=== PATIENT | male | born 1970 ===

== ENCOUNTER 2016-11-16 16:29 | Inpatient (IN) | payer MEDICAID ==
[2016-11-16 20:44] VITALS: BMI 44.0
[2016-11-16] MEDS ORDERED: DiphenhydrAMINE 50 mg/ml Inj IM PRN (21:20)
[2016-11-16] MEDS ORDERED: Magnesium Hydroxide Susp 30 ml UD PO PRN (21:20)
[2016-11-16] MEDS ORDERED: Alum-Mag Hydrox-Simethicone Susp (30 mL) PO PRN (21:20)
[2016-11-17] MEDS ORDERED: Albuterol HFA 90 mcg/actuation (8 g) INH PRN (01:01)
[2016-11-17 08:16] LABS: CHOLESTEROL 135 mg/dL (0-199)
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
--- NOTE | 2016-11-18 11:57 | PN ---
DATE: 11/18/2016 The patient seen and examined. Interim events noted. The patient remains in the psych unit. The pa tient feels much better. No chest pain, no shortness of breath. Still feels depressed but improved. PHYSICAL EXAMINATION: GENERAL: The patient is in no acute distress. VITAL SIGNS: Stable. Temperature 97.5, pulse 83, respiration 18, blood pressure 144/95. Physical e xam is essentially unchanged. DIAGNOSTIC DATA: Available diagnostic data reviewed. Lipid profile is acceptable. Overall, patient's general medical condition is stable. PLAN: As ordered. Karlos Miguel MD cc: [id number] TT: 11/18/2016 11:56:38 Confirmation # [id number] Dictation # [id number] mn
--- NOTE | 2016-11-18 13:01 | PCM.PYCHPN ---
Psychiatric Progress Note - Psychiatric Progress Note Patient seen today, length of contact: in treatment team Patient Chief Complaint: i an dong a little better Problems Identified/Issues Discussed: pt states he is feeling a little better. had some trouble sleeping last night. has c/o nightmares. he is attending groups. wants to return to [facility] for his php. denies si today. Medication Change: No Medical Record Reviewed: Yes Mental Status Examination - Cognitive Function Orientation: Person, Place, Situation, Time Memory: Intact Attention: WNL Concentration: WNL Association: WN Fund of Knowledge: [facility] Decription of patient's judgement and insights: fair - Mood Mood: Depressed, Anxious - Affect Affect: Constricted, Depressed - Speech Speech: Appropriate - Formal Thought Process Formal Thought Process: No Impairment Psychotic Thoughts and Behaviors: denies a/v hallucinations - Suicidal Ideation Suicidal Ideation: No - Homicidal Ideation Homicidal Ideation: No Goal/Treatment Plan - Goal/Treatment Plan Need for Continued Stay: Remain at risks for inpatient hospitalization, Severe depression anxiety Progress Toward Problem(s) and Goals/Treatment Plan: bipolar, depressed continue current treatment disposition planning Estimated Date of D/C: 11/23/16
--- NOTE | 2016-11-19 09:04 | PN ---
DATE: 11/19/2016 MEDICAL FOLLOWUP The patient is seen and examined. Interim events noted. The patient remains in the psychiatry unit. The patient feels okay. No specific complaints. No chest pain or shortness of breath. The patien t now mentions that he was taking ____ folic acid, and would like to restart it. No chest pain or sh ortness of breath. PHYSICAL EXAMINATION: GENERAL: The patient is in no acute distress. VITAL SIGNS: Stable. HEART: S1, S2 normal, regular. LUNGS: Good bilateral air exchange. ABDOMEN: Soft, nontender. EXTREMITIES: No calf swelling, no tenderness, no acute ischemia. CENTRAL NERVOUS SYSTEM: Essentially unchanged. DIAGNOSTIC DATA: Available diagnostic data reviewed. Overall, the patient's general medical condition is stable. PLAN: As ordered. Kalros Miguel MD cc: [id number] TT: 11/19/2016 09:04:28 Confirmation # [id number] Dictation # [id number] kendra
--- NOTE | 2016-11-19 10:13 | PCM.PYCHPN ---
Psychiatric Progress Note - Psychiatric Progress Note Patient seen today, length of contact: discussed with team Patient Chief Complaint: i have too many bad thoughts at night Problems Identified/Issues Discussed: pt states he was getting xanax on medical floor and it helped him sleep. he was warned of addicting nature of this medication and potential danger and continued to insist on getting it. he was agreeable to short term course only and aware he will not get when he is discharged. he stays in day area and sleeps in chair when not occupied with groups. he states his depression is improving. . Medication Change: Yes (dc prn ativan and start prn xanax) Medical Record Reviewed: Yes Mental Status Examination - Cognitive Function Orientation: Person, Place, Situation, Time Memory: Intact Attention: WNL Concentration: WNL Association: WNL Fund of Knowledge: [facility] Decription of patient's judgement and insights: fair - Mood Mood: Depressed, Anxious - Affect Affect: Constricted - Speech Speech: Appropriate - Formal Thought Process Formal Thought Process: No Impairment - Suicidal Ideation Suicidal Ideation: No - Homicidal Ideation Homicidal Ideation: No Goal/Treatment Plan - Goal/Treatment Plan Need for Continued Stay: Remain at risks for inpatient hospitalization, Severe depression anxiety Progress Toward Problem(s) and Goals/Treatment Plan: bipolar, depressed continue current treatment replace prn ativan with prn xanax cymbalta to 90mg disposition planning- can return to [facility] Estimated Date of D/C: 11/23/16
[2016-11-19] MEDS: Omega-3-Acid Ethyl Esters 1 GM Cap PO SCH ×2 (13:30→17:51)
[2016-11-20] MEDS: Omega-3-Acid Ethyl Esters 1 GM Cap PO SCH ×2 (09:10→16:38)
--- NOTE | 2016-11-20 13:18 | PCM.PYCHPN ---
Psychiatric Progress Note - Psychiatric Progress Note Patient seen today, length of contact: discussed with team Patient Chief Complaint: i feel better Problems Identified/Issues Discussed: pt states xanax was helpful. notes improved sleep. states he's feeling better in the hospital. still with intrusive thoughts about his grandson. Medication Change: No ( ) Medical Record Reviewed: Yes Mental Status Examination - Cognitive Function Orientation: Person, Place, Situation, Time Memory: Intact Attention: WNL Concentration: WNL Association: WN Fund of Knowledge: [facility] Decription of patient's judgement and insights: fair - Mood Mood: Depressed, Anxious - Affect Affect: Constricted - Speech Speech: Appropriate - Formal Thought Process Formal Thought Process: No Impairment - Suicidal Ideation Suicidal Ideation: No - Homicidal Ideation Homicidal Ideation: No Goal/Treatment Plan - Goal/Treatment Plan Need for Continued Stay: Remain at risks for inpatient hospitalization, Severe depression anxiety Progress Toward Problem(s) and Goals/Treatment Plan: bipolar, depressed continue current treatment continue current medications continue cymbalta 90mg disposition planning- can return to [facility] next week Estimated Date of D/C: 11/23/16
--- NOTE | 2016-11-21 08:22 | PN ---
DATE: 11/21/2016 The patient seen and examined. Interim events noted. Consults noted, appreciated. Psychiatric foll owup and intervention noted and appreciated. ____ psych unit. The patient feels okay. No specific complaint of chest pain or shortness of breath. The patient seems to be getting better. PHYSICAL EXAMINATION: GENERAL: The patient is in no acute distress. VITAL SIGNS: Stable. HEART: S1, S2 normal, regular. LUNGS: Good bilateral air entry. ABDOMEN: Soft, nontender. EXTREMITIES: No calf swelling, no tenderness, no acute ischemia. CENTRAL NERVOUS SYSTEM: Essentially unchanged. DIAGNOSTIC DATA: Available diagnostic data reviewed. Overall, the patient's general medical condition is stable. PLAN: As ordered. aKrlos Miguel MD cc: [id number] TT: 11/21/2016 08:21:52 Confirmation # [id number] Dictation # [id number] kendra
[2016-11-21] MEDS: Omega-3-Acid Ethyl Esters 1 GM Cap PO SCH ×2 (08:47→16:48)
--- NOTE | 2016-11-21 11:27 | PCM.PYCHPN ---
Psychiatric Progress Note - Psychiatric Progress Note Patient seen today, length of contact: discussed with team Patient Chief Complaint: i am ok Problems Identified/Issues Discussed: pt states xanax was helpful at night. he is irritable with night staff and asking for own room. minimizing this behaviors with this caption writer. pt sleeping during the day today. notes improved sleep. states he's feeling better in the hospital. still with intrusive thoughts about his grandson. Medication Change: No ( ) Medical Record Reviewed: Yes Mental Status Examination - Cognitive Function Orientation: Person, Place, Situation, Time Memory: Intact Attention: WNL Concentration: WNL Association: [facility] Fund of Knowledge: [facility] Decription of patient's judgement and insights: fair - Mood Mood: Depressed, Anxious - Affect Affect: Constricted - Speech Speech: Appropriate - Formal Thought Process Formal Thought Process: No Impairment - Suicidal Ideation Suicidal Ideation: No - Homicidal Ideation Homicidal Ideation: No Goal/Treatment Plan - Goal/Treatment Plan Need for Continued Stay: Remain at risks for inpatient hospitalization, Severe depression anxiety Progress Toward Problem(s) and Goals/Treatment Plan: bipolar, depressed continue current treatment continue current medications continue cymbalta 90mg disposition planning- can return to [facility] next week dc wednesday or wednesday Estimated Date of D/C: 11/23/16
[2016-11-22] MEDS: Omega-3-Acid Ethyl Esters 1 GM Cap PO SCH ×2 (08:35→18:00)
--- NOTE | 2016-11-22 10:01 | PN ---
DATE: 11/22/2016 The patient is seen and examined. Interim events noted. Consults noted and appreciated. The patien t remains in psychiatric unit. The patient feels okay. No specific complaint, no chest pain, no annette rtness of breath. PHYSICAL EXAMINATION: GENERAL: The patient is in no acute distress. VITAL SIGNS: Stable. HEART: S1, S2 normal, regular. LUNGS: Good bilateral air entry. ABDOMEN: Soft, nontender. EXTREMITIES: No calf swelling, no tenderness, no acute ischemia. CENTRAL NERVOUS SYSTEM: Essentially unchanged. DIAGNOSTIC DATA: Available diagnostic data reviewed. Overall, the patient's general medical condition is stable ____. Karlos Miguel MD cc: [id number] TT: 11/22/2016 10:00:56 Confirmation # [id number] Dictation # [id number] kendra
--- NOTE | 2016-11-22 11:35 | PCM.PYCHPN ---
Psychiatric Progress Note - Psychiatric Progress Note Patient seen today, length of contact: discussed with team Patient Chief Complaint: i starting to get better Problems Identified/Issues Discussed: pt visible in milieu. less irritable. states mood is improving. denies suicidal thoughts. Medication Change: No ( ) Medical Record Reviewed: Yes Mental Status Examination - Cognitive Function Orientation: Person, Place, Situation, Time Memory: Intact Attention: WNL Concentration: WNL Association: WNL Fund of Knowledge: [facility] Decription of patient's judgement and insights: fair - Mood Mood: Depressed, Anxious - Affect Affect: Constricted - Speech Speech: Appropriate - Formal Thought Process Formal Thought Process: No Impairment - Suicidal Ideation Suicidal Ideation: No - Homicidal Ideation Homicidal Ideation: No Goal/Treatment Plan - Goal/Treatment Plan Need for Continued Stay: Remain at risks for inpatient hospitalization, Severe depression anxiety Progress Toward Problem(s) and Goals/Treatment Plan: bipolar, depressed continue current treatment continue current medications continue cymbalta 90mg disposition planning- can return to [facility] next week dc this week Estimated Date of D/C: 11/23/16
[2016-11-23] MEDS: Omega-3-Acid Ethyl Esters 1 GM Cap PO SCH ×2 (09:07→17:13)
--- NOTE | 2016-11-23 10:52 | PN ---
DATE: 11/23/2016 The patient seen and examined. Interim events noted. Telephone orders were given. The patient had complaints of pain on . The patient feels otherwise okay. No chest pain or shortness of breath . Pain now is adequately controlled on adjusted . PHYSICAL EXAMINATION: GENERAL: The patient is in no acute distress. VITAL SIGNS: Stable. HEART: S1, S2 normal, regular. LUNGS: Good bilateral air exchange. ABDOMEN: Soft, nontender. EXTREMITIES: The patient has minimal dependent and probably amlodipine related edema. No sign of ac nasir ischemia, no calf swelling, no tenderness. CENTRAL NERVOUS SYSTEM: Essentially unchanged. DIAGNOSTIC DATA: Available diagnostic data reviewed. Overall, patient's general medical condition is stable. PLAN: As ordered. Karlos Miguel MD cc: [id number] TT: 11/23/2016 10:51:55 Confirmation # [id number] Dictation # [id number] torie
--- NOTE | 2016-11-23 11:53 | PCM.PYCHPN ---
Psychiatric Progress Note - Psychiatric Progress Note Patient seen today, length of contact: discussed with team Patient Chief Complaint: can i go in the morning tomorrow? Problems Identified/Issues Discussed: pt more talkative with peers. still focused on changing room. he is feeling less depressed. wants to go home tomorrow. no aggression or agitation. no c/o medication side effects. dr. de jesus has seen pt for lower leg edema Medication Change: No ( ) Medical Record Reviewed: Yes Mental Status Examination - Cognitive Function Orientation: Person, Place, Situation, Time Memory: Intact Attention: WNL Concentration: WNL Association: WNL Fund of Knowledge: [facility] Decription of patient's judgement and insights: fair - Mood Mood: Depressed, Anxious - Affect Affect: Constricted - Speech Speech: Appropriate - Formal Thought Process Formal Thought Process: No Impairment - Suicidal Ideation Suicidal Ideation: No - Homicidal Ideation Homicidal Ideation: No Goal/Treatment Plan - Goal/Treatment Plan Need for Continued Stay: Remain at risks for inpatient hospitalization, Severe depression anxiety Progress Toward Problem(s) and Goals/Treatment Plan: bipolar, depressed continue current treatment continue current medications continue cymbalta 90mg disposition planning- can return to [facility] next week dc tomorrow dr de jesus is following pt and aware of lower leg edema Estimated Date of D/C: 11/23/16
[2016-11-23] MEDS: hydroCHLOROthiazide-Triamterene 25 mg-37.5 mg Cap UD PO SCH (15:12)
[2016-11-24] MEDS: hydroCHLOROthiazide-Triamterene 25 mg-37.5 mg Cap UD PO SCH (09:13)
[2016-11-24] MEDS: Omega-3-Acid Ethyl Esters 1 GM Cap PO SCH (09:15)
[2016-11-24 09:18] VITALS: BP 140/102; PULSE 91
--- NOTE | 2016-11-24 09:59 | PCM.PYCHDC ---
Mental Status Examination - Mental Status Examination Orientation: Person, Place, Situation, Time Memory: Intact Mood: Neutral Affect: Broad Attention: WNL Concentration: WNL Association: WNL Fund of Knowledge: WNL Formal Thought Process: No Impairment Description of patient's judgement and insight: fair Psychotic Thoughts and Behaviors: denies a/v hallucinations Suicidal Ideation: No Current Homicidal Ideation?: No Plan: pt denies suicidal or homicidal thoughts Discharge Summary - Discharge Note Reason for Hospitalization: pt with depression/anxiety suicidal thoughts in context of family loss Psychiatric History (includes Medical, Family, Personal Hx): history of schizoaffective disorder Consultations:: List each consultation separately and include: 1. Reason for request. 2. Findings. 3. Follow-up Consultations: followed by medical record librarian Summary of Hospital Course include:: 1. Description of specific treatment plan utilized for patients during their course of treatmen. 2. Summarize the time- course for resolution of acute symptoms and/or regressed behaviors. 3. Describe issues identified and worked on during hospitalization. 4. Describe medication utilized. 5. Describe medical problems identified and treated. 6. Reassessment of suicide risk Summary of Hospital Course: pt was admitted to [facility] and oriented to the unit. pt was placed on routine safety protocols. pt was started back on his home medications. he was seen by the medical affairs leader. he denied any medication side effects. he was visible in the milieu and was participating in groups. he was future oriented and goal directed and denying any suicidal or homicidal thoughts. - Final Diagnosis (DSM 5) Condition upon Discharge: GOOD DSM 5: bipolar disorder, depressed Disposition: HOME/ ROUTINE Follow-up Treatment Plan: follow up with aftercare appointments as directed take medications as prescribed do not use alcohol, tobacco or other illicit substances call 911 if any suicidal or homicidal thoughts Prescriptions/Medication Reconciliation: DULoxetine [Cymbalta] 90 mg PO DAILY #90 ecc traZODone [Desyrel] 100 mg PO HS #30 tab Folic Acid 1 mg PO DAILY #30 tab Atorvastatin [Lipitor] 40 mg PO DAILY #30 tab [id number] Ethyl Esters 1 GM [Lovaza] 2 gm PO BID #60 sgl amLODIPine [Norvasc] 10 mg PO DAILY #30 tab QUEtiapine [Seroquel] 100 mg PO HS #30 tab OXcarbazepine [Trileptal] 150 mg PO BID #60 tab Albuterol HFA [Ventolin HFA 90 mcg/actuation (8 g)] 1 puff INH RQ4 PRN 30 Days PRN Reason: Shortness Of Breath ALPRAZolam [Xanax] 0.25 mg PO Q12 PRN #30 tab PRN Reason: Anxiety MetFORMIN [glucoPHAGE] 1,000 mg PO BIDWM #60 tab - Smoking Cessation Smoking Cessation Medication prescribed: No Reason for not providing: declined - Antipsychotic Medications Pt discharged on 2 or more routine antipsychotic medications: No
[2016-11-24 10:06] VITALS: RESP 20; TEMP 97.7
--- NOTE | 2016-11-24 10:59 | PN ---
DATE: 11/24/2016 The patient seen and examined. Interim events noted. Consults noted, appreciated. Psychiatric foll owup and intervention noted and appreciated. The patient remains in . The patient seems much b macario. No chest pain or shortness of breath. PHYSICAL EXAMINATION: GENERAL: The patient is in no acute distress. VITAL SIGNS: Stable. Physical exam is essentially unchanged. The patient is medically stable for discharge. Might get discharged today. The patient will need fo llowup with primary care physician, Dr. Bello. The case was also discussed with Dr. Bello. PLAN: As ordered. Karlos Miguel MD cc: [id number] TT: 11/24/2016 10:58:53 Confirmation # [id number] Dictation # [id number] torie
== END 2016-11-24 10:56 | disposition home or self-care (01) | DRG 430 ==
LOC: UNDOADMIN 20:41 → H.PSYCH 20:41
PROVIDERS: ADMIT Psychiatry & Neurology Psychiatry; ATTEND Psychiatry & Neurology Psychiatry
PROC: GZ51ZZZ Individual Psychotherapy, Behavioral (ICD-10-PCS; 2016-11-16)
PROC: GZHZZZZ Group Psychotherapy (ICD-10-PCS; principal; 2016-11-18)
DX: F31.30 Bipolar disorder, current episode depressed, mild or moderate severity, unspecified (principal); R45.851 Suicidal ideations; Z68.41 Body mass index [BMI] 40.0-44.9, adult; E66.01 Morbid (severe) obesity due to excess calories; F25.9 Schizoaffective disorder, unspecified; F41.9 Anxiety disorder, unspecified; G47.30 Sleep apnea, unspecified; I10 Essential (primary) hypertension; E11.9 Type 2 diabetes mellitus without complications

== ENCOUNTER 2016-12-10 17:44 | Inpatient (IN) | payer MEDICAID ==
[2016-12-10 17:44] VITALS: BMI 45.6
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
[2016-12-10 18:43] LABS: HEMATOCRIT 46.7 % (35.0-51.0); MEAN CELL VOLUME 98.9 fl (80.0-94.0); MEAN CORPUSCULAR HEMOGLOBIN 33.2 pg (27.0-31.0); MEAN CORPUSCULAR HGB CONC 33.5 g/dL (33.0-37.0); RED CELL DISTRIBUTION WIDTH 13.7 % (11.5-14.5); WHITE BLOOD COUNT 8.2 K/uL (4.8-10.8)
[2016-12-10 18:46] LABS: RBC URINE 1 /hpf (0-3); URINE BILIRUBIN NEGATIVE (NEGATIVE); URINE BLOOD NEGATIVE (NEGATIVE); URINE COLOR YELLOW (YELLOW); URINE GLUCOSE (UA) NEG (Normal); URINE KETONE TRACE mg/dL (NEGATIVE); URINE LEUKOCYTE ESTERASE NEG Leu/uL (Negative); URINE PROTEIN NEGATIVE (NEGATIVE); URINE UROBILINOGEN 0.2-1.0 mg/dL (0.2-1.0); WBC URINE 1 /hpf (0-5)
[2016-12-10 18:54] LABS: ALB/GLOB RATIO 1.2 (1.0-2.1); ALCOHOL SERUM 152 mg/dl (0-10); ALKALINE PHOSPHATASE 86 U/L (38-126); ALT/SGPT 42 U/L (21-72); AST/SGOT 46 U/L (17-59); BILIRUBIN,TOTAL 0.5 mg/dl (0.2-1.3); BLOOD UREA NITROGEN 12 mg/dl (9-20); CALCIUM 9.4 mg/dL (8.4-10.2); CARBON DIOXIDE 21 mmol/L (22-30); CHLORIDE 104 mmol/L (98-107); GFR AFRICAN-AMERICAN > 60; GLUCOSE,RANDOM 104 mg/dL (75-110); POTASSIUM 3.6 MMOL/L (3.6-5.0); SODIUM 147 mmol/l (132-148); TOTAL PROTEIN 7.6 G/DL (6.3-8.2)
--- NOTE | 2016-12-10 20:15 | ED PDOC ---
- Laboratory Results Result Diagrams: 12/10/16 18:39 12/10/16 18:39 - ECG Interpretation Of ECG: NSR 76 bpm, no acute finding, reviewed by SUPRIYA and ED attending. O2 Sat by Pulse Oximetry: 100 Pulse Ox Interpretation: Normal - Other Rad bedside chest X-Ray: Interpreted by Me, Viewed By Me X-Ray Interpretation: no acute finding - Progress ED Course And Treament: Case was signed out to writer technical publications from SUPRIYA Maldonado pending crisis evaluation. Medical Decision Making Medical Decision Making: As per crisis counselor and psychiatrist shuttle preparation supervisor Dr. Chamberlain, patient does meet criteria for admission. Patient agrees to stay and signed himself in. He is medically stable for psychiatric admission. Disposition - Clinical Impression Clinical Impression: Depression - POA Present On Arrival: None - Disposition Disposition: Admitted as In-Patient Disposition Time: 21:03 Condition: FAIR Results - Lab Results Lab Results: 12/10/16 18:39 WBC 8.2 RBC 4.72 Hgb 15.7 Hct 46.7 MCV 98.9 H MCH 33.2 H MCHC 33.5 RDW 13.7 Plt Count 221 Sodium 147 Potassium 3.6 Chloride 104 Carbon Dioxide 21 L Anion Gap 26 H BUN 12 Creatinine 0.9 Est GFR ( Amer) > 60 Est GFR (Non-Af Amer) > 60 Random Glucose 104 Calcium 9.4 Total Bilirubin 0.5 AST 46 ALT 42 Alkaline Phosphatase 86 Total Protein 7.6 Albumin 4.2 Globulin 3.4 Albumin/Globulin Ratio 1.2 Urine Color Yellow Urine Clarity Clear Urine pH 6.0 Ur Specific [place] 1.010 Urine Protein Negative Urine Glucose (UA) Neg Urine Ketones Trace Urine Blood Negative Urine Nitrate Negative Urine Bilirubin Negative Urine Urobilinogen 0.2-1.0 Ur Leukocyte Esterase Neg Urine RBC (Auto) 1 Urine Microscopic WBC 1 Ur Squamous Epith Cells < 1 Urine Opiates Screen Negative Urine Methadone Screen Negative Ur Barbiturates Screen Negative Ur Phencyclidine Scrn Negative Ur Amphetamines Screen Negative U Benzodiazepines Scrn Negative U Oth Cocaine Metabols Negative U Cannabinoids Screen Negative Alcohol, Quantitative 152 H
[2016-12-11 00:12] VITALS: O2SAT 95
[2016-12-11] MEDS ORDERED: Alum-Mag Hydrox-Simethicone Susp (30 mL) PO PRN (01:04)
[2016-12-11] MEDS ORDERED: DiphenhydrAMINE 50 mg/ml Inj IM PRN (01:04)
[2016-12-11] MEDS ORDERED: Magnesium Hydroxide Susp 30 ml UD PO PRN (01:04)
[2016-12-11 08:43] LABS: T4 5.81 ug/dl (5.5-11.0)
[2016-12-11 08:56] LABS: THYROID STIMULATING HORMONE 3.09 mIU/ML (0.46-4.68)
--- NOTE | 2016-12-11 11:20 | RAD ---
HISTORY: admit COMPARISON: 11/13/2016 FINDINGS: LUNGS: The lungs are well inflated and clear. PLEURA: No significant pleural effusion identified, no pneumothorax apparent. CARDIOVASCULAR: Normal. OSSEOUS STRUCTURES: No significant abnormalities. VISUALIZED UPPER ABDOMEN: Normal. OTHER FINDINGS: None. IMPRESSION: No active pulmonary disease.
--- NOTE | 2016-12-11 11:50 | CP.PCM.CON ---
History of Present Illness - History of Present Illness History of Present Illness: Reason for Consult: per protocol 46 year old male PMH Bipolar Disorder, Depression, HTN, HLD, DM was admitted for increased depression (bipolar DO). Patient also states he has been hearing voices telling him that he is a coward. Otherwise patient has no complaints. Denies cp, sob, urinary sx. PMHx: Bipolar Disorder, Depression, HTN, HLD, DM (states he is borderline) PSHx: Colon Polyp Removal in 2016 ALL: NKDA, NO known food allergies Medications: per reconciliation Social Hx: NO tobacco, NO alcohol, NO illicit drugs Family Hx: Depression, schizophrenia, brother Temp Pulse Resp BP Pulse Ox 97.7 F 83 18 153/96 H 95 12/11/16 09:29 12/11/16 09:29 12/11/16 09:29 12/11/16 09:29 12/11/16 00:18 HEENT: NCAT, PERRL, EOMI HEART: +S1+S2, RRR LUNG: CTAB NO WRR ABD: SOFT NT ND NO MASS NO HSM EXT: NO EDEMA, PULSES INTACT SKIN: WARM DRY PSYCH: appears depressed, appropriate affect ACTIVE MEDICATIONS Acetaminophen [Tylenol 325mg tab] 650 mg PO Q4 PRN Aluminum Hydroxide/Magnesium [Maalox Plus 30 ml] 30 ml PO Q4 PRN DiphenhydrAMINE [Benadryl] 50 mg IM Q6 PRN DiphenhydrAMINE [Benadryl] 50 mg PO Q6 PRN Haloperidol Lactate [Haldol] 5 mg IM Q4 PRN Haloperidol [Haldol] 5 mg PO Q4 PRN LORazepam [Ativan] 2 mg IM Q4 PRN LORazepam [Ativan] 2 mg PO Q4 PRN Magnesium Hydroxide [Milk Of Magnesia] 30 ml PO HS PRN 12/11/16 01:08 DiphenhydrAMINE [Benadryl] 50 mg PO HS PRN 12/11/16 09:00 Citalopram [CeleXA] 40 mg PO DAILY DULoxetine [Cymbalta] 60 mg PO DAILY OXcarbazepine [Trileptal] 150 mg PO BID Topiramate [Topamax] 100 mg PO DAILY 12/11/16 22:00 QUEtiapine [SEROquel] 25 mg PO HS traZODone [Desyrel] 150 mg PO HS assessment and plan 46 year old male PMH HTN, Hyperlipidemia, drug-induced DM? according to the patient, admitted for depression. Depression/Bipolar/Psychotic features management per psychiatry team HTN continue Amlodipine 10 mg po daily HLD continue Liptor 40 mg PO daily DM ACCUCHECKS ISS per protocol MED controlled. Past Patient History - Infectious Disease Hx of Infectious Diseases: None - Tetanus Immunizations Tetanus Immunization: Unknown - Past Medical History & Family History Past Medical History?: Yes - Past Social History Smoking Status: Former Smoker - CARDIAC Hx Hypercholesterolemia: Yes Hx Hypertension: Yes - PULMONARY Hx Asthma: Yes - NEUROLOGICAL Hx Seizures: No - HEENT Hx HEENT Problems: No - RENAL Hx Chronic Kidney Disease: No - ENDOCRINE/METABOLIC Hx Endocrine Disorders: Yes Hx Diabetes Mellitus Type 2: Yes - HEMATOLOGICAL/ONCOLOGICAL Hx Human Immunodeficiency Virus (HIV): No - INTEGUMENTARY Hx Dermatological Problems: No - MUSCULOSKELETAL/RHEUMATOLOGICAL Hx Arthritis: Yes Hx Rheumatoid Arthritis: Yes - GASTROINTESTINAL Hx Gastroesophageal Reflux: Yes - GENITOURINARY/GYNECOLOGICAL Hx Sexually Transmitted Disorders: No - PSYCHIATRIC Hx Depression: Yes Hx Schizophrenia: Yes Hx Substance Use: Yes - SURGICAL HISTORY Hx Surgeries: Yes (removal of colon polyp) Other/Comment: colon polyps removed - ANESTHESIA Hx Anesthesia: Yes Hx Anesthesia Reactions: No Meds Allergies/Adverse Reactions: Allergies Allergy/AdvReac Type Severity Reaction Status Date / Time No Known Allergies Allergy Verified 09/03/16 17:12 - Medications Medications: Current Medications Acetaminophen (Tylenol 325mg Tab) 650 mg PO Q4 PRN PRN Reason: Pain, moderate (4-7) Al Hydrox/Mg Hydrox/Simethicone (Maalox Plus 30 Ml) 30 ml PO Q4 PRN PRN Reason: Dyspepsia Citalopram Hydrobromide (Celexa) 40 mg PO DAILY JUAN M Diphenhydramine HCl (Benadryl) 50 mg PO Q6 PRN PRN Reason: Extrapyramidal Symptoms Diphenhydramine HCl (Benadryl) 50 mg IM Q6 PRN PRN Reason: Extrapyramidal S/S Unable PO Diphenhydramine HCl (Benadryl) 50 mg PO HS PRN PRN Reason: Sleep Duloxetine HCl (Cymbalta) 60 mg PO DAILY JUAN M Haloperidol (Haldol) 5 mg PO Q4 PRN PRN Reason: Agitation Haloperidol Lactate (Haldol) 5 mg IM Q4 PRN PRN Reason: Agitation, Unable to Take PO Lorazepam (Ativan) 2 mg PO Q4 PRN PRN Reason: Anxiety/Agitation Lorazepam (Ativan) 2 mg IM Q4 PRN PRN Reason: Anxiety/Agitation,Unable PO Magnesium Hydroxide (Milk Of Magnesia) 30 ml PO HS PRN PRN Reason: Constipation Oxcarbazepine (Trileptal) 150 mg PO BID JUAN M Quetiapine Fumarate (Seroquel) 25 mg PO HS JUAN M Topiramate (Topamax) 100 mg PO DAILY JUAN M Trazodone HCl (Desyrel) 150 mg PO HS [facility] Results - Vital Signs Recent Vital Signs: Last Vital Signs Temp 97.7 F 12/11/16 09:29 Pulse 83 12/11/16 09:29 Resp 18 12/11/16 09:29 BP 153/96 H 12/11/16 09:29 Pulse Ox 95 12/11/16 00:18 - Labs Result Diagrams: 12/10/16 18:39 12/10/16 18:39 Labs: Laboratory Results - last 24 hr 12/11/16 07:48 Triglycerides 137 Cholesterol 160 LDL Cholesterol Direct 87 HDL Cholesterol 48 Thyroxine (T4) 5.81 TSH 3rd Generation 3.09
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
[2016-12-11] MEDS: HCTZ/Losartan 12.5/50 Tab PO SCH (14:35)
[2016-12-11] MEDS: Insulin Lispro (humaLOG) 100 Units/ml Inj SC SCH (17:14)
--- NOTE | 2016-12-11 19:35 | CARD ---
APPROVED REPORT EKG Measurement Heart [id number] CT [id number] <Conclusion> Normal sinus rhythm Normal ECG motion artefact
[2016-12-12] MEDS: Insulin Lispro (humaLOG) 100 Units/ml Inj SC SCH ×4 (01:00→20:00)
[2016-12-12] MEDS: HCTZ/Losartan 12.5/50 Tab PO SCH (09:14)
--- NOTE | 2016-12-12 13:39 | PCM.PYCHPN ---
Psychiatric Progress Note - Psychiatric Progress Note Patient seen today, length of contact: discussed with team Patient Chief Complaint: i feel a little better Problems Identified/Issues Discussed: pt reports some improved sleep. feels comfortable in hospital. social with peers. denies medication side effects. Medication Change: No Medical Record Reviewed: Yes Mental Status Examination - Cognitive Function Orientation: Person, Place, Situation, Time Memory: Intact Attention: WNL Concentration: WNL Association: WNL Fund of Knowledge: [facility] Decription of patient's judgement and insights: fair - Mood Mood: Depressed - Affect Affect: Depressed - Speech Speech: Appropriate - Formal Thought Process Formal Thought Process: No Impairment Psychotic Thoughts and Behaviors: denies auditory hallucinations today - Suicidal Ideation Suicidal Ideation: No - Homicidal Ideation Homicidal Ideation: No Goal/Treatment Plan - Goal/Treatment Plan Need for Continued Stay: Remain at risks for inpatient hospitalization, Severe functional impairment Progress Toward Problem(s) and Goals/Treatment Plan: bipolar disorder continue current hospital course no medication changes Estimated Date of D/C: 12/14/16
[2016-12-12 16:22] VITALS: RESP 20
[2016-12-12] MEDS: Hydrocortisone 1% Oint TOP SCH (16:40)
[2016-12-13] MEDS ORDERED: Insulin Lispro (humaLOG) 100 Units/ml Inj SC SCH (09:00)
[2016-12-13] MEDS: HCTZ/Losartan 12.5/50 Tab PO SCH (09:06)
[2016-12-13] MEDS: Hydrocortisone 1% Oint TOP SCH ×2 (09:07→17:08)
--- NOTE | 2016-12-13 14:24 | PCM.PYCHPN ---
Psychiatric Progress Note - Psychiatric Progress Note Patient seen today, length of contact: discussed with team Patient Chief Complaint: i am sleeping Problems Identified/Issues Discussed: pt reports he is feeling better now. denies medication side effects. anticipating discharge tomorrow Medication Change: No Medical Record Reviewed: Yes Mental Status Examination - Cognitive Function Orientation: Person, Place, Situation, Time Memory: Intact Attention: WNL Concentration: WNL Association: WNL Fund of Knowledge: WNL Decription of patient's judgement and insights: fair - Mood Mood: Depressed - Affect Affect: Depressed - Speech Speech: Appropriate - Formal Thought Process Formal Thought Process: No Impairment - Suicidal Ideation Suicidal Ideation: No - Homicidal Ideation Homicidal Ideation: No Goal/Treatment Plan - Goal/Treatment Plan Need for Continued Stay: Remain at risks for inpatient hospitalization, Severe functional impairment Progress Toward Problem(s) and Goals/Treatment Plan: bipolar disorder continue current hospital course no medication changes discharge tomorrow Estimated Date of D/C: 12/14/16
[2016-12-14 09:08] VITALS: BP 121/80; PULSE 91; TEMP 97.5
[2016-12-14] MEDS: HCTZ/Losartan 12.5/50 Tab PO SCH (09:12)
[2016-12-14] MEDS: Hydrocortisone 1% Oint TOP SCH (09:18)
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
== END 2016-12-14 13:50 | disposition home or self-care (01) | DRG 430 ==
LOC: H.ER 17:44 → H.ERHOLD 21:02 → H.PSYCH 12-11 00:54
PROVIDERS: ADMIT Psychiatry & Neurology Psychiatry; ATTEND Psychiatry & Neurology Psychiatry
PROC: GZHZZZZ Group Psychotherapy (ICD-10-PCS; principal; 2016-12-10)
PROC: GZ56ZZZ Individual Psychotherapy, Supportive (ICD-10-PCS; 2016-12-10)
DX: F31.9 Bipolar disorder, unspecified (principal); E11.9 Type 2 diabetes mellitus without complications; R45.851 Suicidal ideations; E78.00 Pure hypercholesterolemia, unspecified; E78.5 Hyperlipidemia, unspecified; F10.10 Alcohol abuse, uncomplicated; Y90.6 Blood alcohol level of 120-199 mg/100 ml; F41.9 Anxiety disorder, unspecified; M06.9 Rheumatoid arthritis, unspecified; I10 Essential (primary) hypertension; K21.9 Gastro-esophageal reflux disease without esophagitis; J45.909 Unspecified asthma, uncomplicated

== ENCOUNTER 2017-01-18 08:58 | Emergency (ER) | payer MEDICAID ==
[2017-01-18 09:01] VITALS: BP 121/70; PULSE 78; TEMP 97; O2SAT 97; BMI 43.8
--- NOTE | 2017-01-18 09:37 | ED PDOC ---
HPI: Back Time Seen by Provider: 01/18/17 09:29 Chief Complaint (Nursing): Back Pain Chief Complaint (Provider): back pain History Per: Patient History/Exam Limitations: no limitations Additional Complaint(s): 46yo male comes to the ED complaining of chronic back pain. He states that walking yesterday exacerbated his chronic lower back pain. Denies other trauma. He reports that he no longer follows up with pain management as they could not provide medication that did not interfere with his psych medications and reports that he does not want surgery or to see orthopedics or neurosurgery. He denies weakness, numbness or tingling. Denies urinary or bowel incontinence. He reports that he did not see his PMD today because he needs an appt and cannot see him same day. Past Medical History Reviewed: Historical Data, Nursing Documentation, Vital Signs Vital Signs: Last Vital Signs Temp 97 F L 01/18/17 09:00 Pulse 78 01/18/17 09:00 Resp BP 121/70 01/18/17 09:00 Pulse Ox 97 01/18/17 09:00 - Medical History PMH: Anxiety, Arthritis, Asthma, Back Problems (herniated disc), Bipolar Disorder, Depression, Diabetes (borderline type II), GERD, HTN, Hypercholesterolemia, Rheumatoid Arthritis, Schizophrenia Denies: Hepatitis, HIV, Chronic Kidney Disease, Seizures, Sexually Transmitted Disease - Family History Family History: States: Unknown Family Hx - Immunization History Hx Tetanus Toxoid Vaccination: No Hx Influenza Vaccination: No Hx Pneumococcal Vaccination: No - Home Medications Home Medications: Ambulatory Orders Medication Instructions Recorded Atorvastatin [Lipitor] 40 mg PO DAILY #30 tab 11/24/16 Folic Acid 1 mg PO DAILY #30 tab 11/24/16 MetFORMIN [glucoPHAGE] 1,000 mg PO BIDWM #60 tab 11/24/16 OXcarbazepine [Trileptal] 150 mg PO BID #60 tab 11/24/16 [id number]-[id number] Ethyl Esters 1 GM 2 gm PO BID #60 sgl 11/24/16 [Lovaza] amLODIPine [Norvasc] 10 mg PO DAILY #30 tab 11/24/16 Citalopram [celEXA] 40 mg PO DAILY 12/10/16 DULoxetine [Cymbalta] 60 mg PO DAILY 12/10/16 Duloxetine HCl 30 mg PO DAILY 12/10/16 Lurasidone HCl [Latuda] 60 mg PO DAILY 12/10/16 Methotrexate 2.5 mg PO QWK 12/10/16 Naltrexone [Revia] 50 mg PO DAILY 12/10/16 QUEtiapine [Seroquel] 25 mg PO HS 12/10/16 Topiramate [Topamax] 100 mg PO DAILY 12/10/16 traZODone [Desyrel] 150 mg PO HS 12/10/16 Losartan/Hydrochlorothiazide 1 each PO DAILY 12/11/16 [Losartan-Hctz 100-25 mg Tab] - Allergies Allergies/Adverse Reactions: Allergies Allergy/AdvReac Type Severity Reaction Status Date / Time No Known Allergies Allergy Verified 01/18/17 09:08 Review of Systems ROS Statement: Except As Marked, All Systems Reviewed And Found Negative Constitutional: Negative for: Fever, Chills, Weakness, Malaise, Weight loss Cardiovascular: Negative for: Chest Pain, Palpitations, Paroxysmal Noc. Dyspnea Respiratory: Negative for: Cough, Shortness of Breath, SOB with Exertion Gastrointestinal: Negative for: Nausea, Vomiting, Abdominal Pain, Diarrhea, Constipation Genitourinary Male: Negative for: Dysuria, Frequency, Incontinence, Hematuria Musculoskeletal: Positive for: Back Pain. Negative for: Neck Pain, Shoulder Pain, Arm Pain, Hand Pain, Leg Pain, Foot Pain Skin: Negative for: Rash Neurological: Negative for: Weakness, Numbness, Headache Physical Exam - Reviewed Nursing Documentation Reviewed: Yes Vital Signs Reviewed: Yes - Physical Exam Appears: Positive for: Well (overweight male resting in bed in NAD. ), Non-toxic , No Acute Distress Head Exam: Positive for: ATRAUMATIC, NORMAL INSPECTION, NORMOCEPHALIC Skin: Positive for: Warm, Dry Eye Exam: Positive for: EOMI, PERRL Neck: Positive for: Normal, Supple Cardiovascular/Chest: Positive for: Regular Rate, Rhythm. Negative for: Murmur Respiratory: Positive for: Normal Breath Sounds. Negative for: Rales, Rhonchi, Wheezing Gastrointestinal/Abdominal: Positive for: Soft. Negative for: Tenderness, Mass , Distended Back: Positive for: Muscle Spasm, Other (left side paraspinal tenderness ( baseline per patient). No midline tenderness). Negative for: L CVA Tenderness , R CVA Tenderness, Vertebral Tenderness, Decreased ROM Extremity: Positive for: Normal ROM. Negative for: Calf Tenderness, Swelling Neurologic/Psych: Positive for: Gait (steady, observed patient ambulate into ED bed) - ECG O2 Sat by Pulse Oximetry: 97 (RA) Pulse Ox Interpretation: Normal Medical Decision Making Medical Decision Makin: Patient reports that when he was in the ED 1 year ago for similar episode, morphine was only thing that relieved pain. Morphine 4mg ordered. 10:38AM Patient reports pain is improved. He is neurologically intact and reports that he will follow-up with PMD this week. He was again instructed on importance of following up with ortho and pain management. He reports that he does not want prescription for pain medication. Disposition - Clinical Impression Clinical Impression: Chronic back pain - Patient ED Disposition Is Patient to be Admitted: No - Disposition Disposition: Routine/Home Disposition Time: 10:39 Condition: GOOD Additional Instructions: Follow up with PMD within 2 days. Return to ED if condition worsens. Follow- up with pain management if desired. Instructions: Chronic Back Pain (ED) Additional Comments - Additional Comments Additional Comments: Scribe Attestation Documented by Alexandru Granado acting as a scribe for Stanley Villar MD. Provider Attestation: All medical record entries made by the Scribe were at my direction and personally dictated by me. I have reviewed the chart and agree that the record accurately reflects my personal performance of the history, physical exam, medical decision making, and the department course for this patient. I have also personally directed, reviewed, and agree with the discharge instructions and disposition.
== END 2017-01-18 11:16 | disposition home or self-care (01) ==
LOC: H.ER 08:58
DX: M54.9 Dorsalgia, unspecified (principal); E78.00 Pure hypercholesterolemia, unspecified; F20.9 Schizophrenia, unspecified; F31.9 Bipolar disorder, unspecified; F41.9 Anxiety disorder, unspecified; I10 Essential (primary) hypertension; Z79.84 Long term (current) use of oral hypoglycemic drugs; E11.9 Type 2 diabetes mellitus without complications

== ENCOUNTER 2017-03-27 17:52 | Inpatient (IN) | payer MEDICAID ==
[2017-03-27 17:53] VITALS: BMI 43.8
[2017-03-27 18:01] VITALS: O2SAT 100
--- NOTE | 2017-03-27 18:26 | ED PDOC ---
HPI: Psych/Substance Abuse Time Seen by Provider: 03/27/17 18:03 Chief Complaint (Nursing): Psychiatric Evaluation Chief Complaint (Provider): Psychiatric Evaluation History Per: Patient History/Exam Limitations: no limitations Onset/Duration Of Symptoms: Days (Since 11pm last night, 03/26/2017. ) Current Symptoms Are (Timing): Still Present Additional Complaint(s): 47 y/o male with a past medical history of depression (compliant with medications), hypertension diabetes, and dyslipidemia who presents to the emergency department with a complaint of feeling severely depressed, tearful, hearing voices and having thoughts of suicide with a plan to cut his wrist since 22:00 last night, 03/26/2017. Denies history of suicide attempts, drug use , homicidal ideation or visual hallucinations. PMD: Dr. Aldo Gonzalez MD Past Medical History Reviewed: Historical Data, Nursing Documentation, Vital Signs Vital Signs: Last Vital Signs Temp 98.2 F 03/27/17 17:59 Pulse 100 H 03/27/17 17:59 Resp 16 03/27/17 17:59 BP 138/94 H 03/27/17 17:59 Pulse Ox 100 03/27/17 17:59 - Medical History PMH: Anxiety, Arthritis, Asthma, Back Problems (herniated disc), Bipolar Disorder, Depression, Diabetes (borderline type II), GERD, HTN, Hypercholesterolemia, Rheumatoid Arthritis, Schizophrenia Denies: Hepatitis, HIV, Chronic Kidney Disease, Seizures, Sexually Transmitted Disease - Surgical History Surgical History: No Surg Hx - Family History Family History: States: Unknown Family Hx - Social History Current smoker - smoking cessation education provided: Yes Alcohol: Social (Reports drinking beers socially) Drugs: Denies - Immunization History Hx Tetanus Toxoid Vaccination: No Hx Influenza Vaccination: No Hx Pneumococcal Vaccination: No - Home Medications Home Medications: Ambulatory Orders Medication Instructions Recorded Atorvastatin [Lipitor] 40 mg PO DAILY #30 tab 11/24/16 Folic Acid 1 mg PO DAILY #30 tab 11/24/16 MetFORMIN [glucoPHAGE] 1,000 mg PO BIDWM #60 tab 11/24/16 OXcarbazepine [Trileptal] 150 mg PO BID #60 tab 11/24/16 [id number]-[id number] Ethyl Esters 1 GM 2 gm PO BID #60 sgl 11/24/16 [Lovaza] amLODIPine [Norvasc] 10 mg PO DAILY #30 tab 11/24/16 Citalopram [celEXA] 40 mg PO DAILY 12/10/16 DULoxetine [Cymbalta] 60 mg PO DAILY 12/10/16 Duloxetine HCl 30 mg PO DAILY 12/10/16 Lurasidone HCl [Latuda] 60 mg PO DAILY 12/10/16 Methotrexate 2.5 mg PO QWK 12/10/16 Naltrexone [Revia] 50 mg PO DAILY 12/10/16 QUEtiapine [Seroquel] 25 mg PO HS 12/10/16 Topiramate [Topamax] 100 mg PO DAILY 12/10/16 traZODone [Desyrel] 150 mg PO HS 12/10/16 Losartan/Hydrochlorothiazide 1 each PO DAILY 12/11/16 [Losartan-Hctz 100-25 mg Tab] - Allergies Allergies/Adverse Reactions: Allergies Allergy/AdvReac Type Severity Reaction Status Date / Time No Known Allergies Allergy Verified 01/18/17 09:08 Review of Systems ROS Statement: Except As Marked, All Systems Reviewed And Found Negative Psych: Positive for: Depression, Suicidal ideation. Negative for: Other ( Homicidal ideation or visual hallucinations) Physical Exam - Reviewed Nursing Documentation Reviewed: Yes Vital Signs Reviewed: Yes - Physical Exam Appears: Positive for: Non-toxic, In Acute Distress (Acute psychiatric distress and somewhat tearful ) Head Exam: Positive for: ATRAUMATIC, NORMAL INSPECTION, NORMOCEPHALIC Skin: Positive for: Normal Color, Warm, Dry Eye Exam: Positive for: EOMI, PERRL, Conjunctival injection (Bilaterally) ENT: Positive for: Normal ENT Inspection. Negative for: Pharyngeal Erythema Neck: Positive for: Normal, Supple Cardiovascular/Chest: Positive for: Regular Rate, Rhythm. Negative for: Murmur Respiratory: Positive for: Normal Breath Sounds. Negative for: Accessory Muscle Use, Respiratory Distress Gastrointestinal/Abdominal: Positive for: Normal Exam, Soft. Negative for: Tenderness Back: Positive for: Normal Inspection. Negative for: L CVA Tenderness, R CVA Tenderness Extremity: Positive for: Normal ROM. Negative for: Pedal Edema Neurologic/Psych: Positive for: Alert, Oriented, Mood/Affect (Depressed and sad affect) - Laboratory Results Result Diagrams: 03/27/17 18:29 03/27/17 18:29 - ECG O2 Sat by Pulse Oximetry: 100 (RA) Pulse Ox Interpretation: Normal Medical Decision Making Medical Decision Making: Time: 18:13 Initial Impression: Psychiatric Evaluation Initial Plan: --Labs --Urine DIP --Crisis Evaluation --AccuCheck --1:1 OBs for suicide precaution Mildly elevated BAL, otherwise no clinically significant lab abnormalities Evaluated by MADELAINE Calvillo who d/w psychiatrist. pt will be admitted to psych floor Medically stable for psychiatric admission. Scribe Attestation: Documented by Corrina Sevilla, acting as a scribe for Jerica Wang MD. Provider Scribe Attestation: All medical record entries made by the Scribe were at my direction and personally dictated by me. I have reviewed the chart and agree that the record accurately reflects my personal performance of the history, physical exam, medical decision making, and the department course for this patient. I have also personally directed, reviewed, and agree with the discharge instructions and disposition. Disposition - Clinical Impression Clinical Impression: Depression - Disposition Disposition Time: 19:00 Condition: STABLE - Pt Status Changed To: Hospital Disposition Of: Inpatient - Admit Certification Admit to Inpatient:: After my assessment, the patient will require hospitalization for at least two midnights. This is because of the severity of symptoms shown, intensity of services needed, and/or the medical risk in this patient being treated as an outpatient. - POA Present On Arrival: None
[2017-03-27 18:44] LABS: ALB/GLOB RATIO 1.5 (1.0-2.1); ALCOHOL SERUM 83 mg/dl (0-10); ALKALINE PHOSPHATASE 101 U/L (38-126); ALT/SGPT 66 U/L (21-72); AST/SGOT 37 U/L (17-59); BILIRUBIN,TOTAL 0.5 mg/dl (0.2-1.3); BLOOD UREA NITROGEN 9 mg/dl (9-20); CALCIUM 9.9 mg/dL (8.4-10.2); CARBON DIOXIDE 25 mmol/L (22-30); CHLORIDE 103 mmol/L (98-107); GFR AFRICAN-AMERICAN > 60; GLUCOSE,RANDOM 110 mg/dL (75-110); POTASSIUM 3.7 MMOL/L (3.6-5.0); SODIUM 142 mmol/l (132-148); TOTAL PROTEIN 8.3 G/DL (6.3-8.2)
[2017-03-27 18:49] LABS: BASO # 0.1 K/uL (0.0-0.2); BASO % 0.9 % (0.0-2.0); EOS # 0.3 K/uL (0.0-0.7); EOS % 4.2 % (0.0-4.0); HEMATOCRIT 49.1 % (35.0-51.0); LYMPH # 3.1 K/uL (1.0-4.3); LYMPH % 40.4 % (20.0-40.0); MEAN CELL VOLUME 100.4 fl (80.0-94.0); MEAN CORPUSCULAR HEMOGLOBIN 33.4 pg (27.0-31.0); MEAN CORPUSCULAR HGB CONC 33.2 g/dL (33.0-37.0); MEAN PLATELET VOLUME 8.4 fl (7.2-11.7); MONO # 0.7 K/uL (0.0-0.8); MONO % 9.1 % (0.0-10.0); NEUT # 3.4 K/uL (1.8-7.0); NEUT % 45.4 % (50.0-75.0); NRBC % 0.2 % (0.0-0.0); RED CELL DISTRIBUTION WIDTH 14.7 % (11.5-14.5); WHITE BLOOD COUNT 7.6 K/uL (4.8-10.8)
[2017-03-27] MEDS ORDERED: Alum-Mag Hydrox-Simethicone Susp (30 mL) PO PRN (23:06)
[2017-03-27] MEDS ORDERED: DiphenhydrAMINE 50 mg/ml Inj IM PRN (23:06)
[2017-03-27] MEDS ORDERED: Magnesium Hydroxide Susp 30 ml UD PO PRN (23:06)
--- NOTE | 2017-03-28 08:43 | RAD ---
HISTORY: psych admission COMPARISON: No prior. TECHNIQUE: Chest PA and lateral FINDINGS: LUNGS: No active pulmonary disease. PLEURA: No significant pleural effusion identified. No pneumothorax apparent. CARDIOVASCULAR: Normal. OSSEOUS STRUCTURES: No significant abnormalities. VISUALIZED UPPER ABDOMEN: Normal. OTHER FINDINGS: None. IMPRESSION: No active disease.
[2017-03-28 08:52] LABS: T4 5.77 ug/dl (5.5-11.0)
[2017-03-28 09:06] LABS: THYROID STIMULATING HORMONE 5.2 mIU/ML (0.46-4.68)
[2017-03-28] MEDS ORDERED: Omega-3-Acid Ethyl Esters 1 GM Cap PO SCH (10:15)
[2017-03-28] MEDS ORDERED: OMEGA FISH OIL PO SCH (10:30)
[2017-03-28] MEDS ORDERED: DHA PO SCH (10:30)
--- NOTE | 2017-03-28 11:28 | CARD ---
APPROVED REPORT EKG Measurement Heart [id number] <Conclusion> Normal sinus rhythm Normal ECG
[2017-03-28] MEDS: Pantoprazole 40 mg EC Tab PO SCH (11:44)
[2017-03-28 16:52] LABS: FOLATE 5.7 ng/mL
[2017-03-29 08:23] LABS: CHOLESTEROL 160 mg/dL (0-199)
[2017-03-29] MEDS: Pantoprazole 40 mg EC Tab PO SCH (08:30)
[2017-03-29] MEDS ORDERED: LOSARTAN PO SCH (09:00)
[2017-03-29] MEDS ORDERED: HYDROCHLOROTHIAZIDE PO SCH (09:00)
--- NOTE | 2017-03-29 14:24 | PCM.PSYCH ---
Initial Psychiatric Evaluation - Initial Psychiatric Evaluation Type of Admission: Voluntary Legal Status: Capacity Chief Complaint (in patient's own words): "I'm depressed" Patient's Reaction to Hospitalization: HPI: 47 year old male PMH Bipolar Disorder w/ psychosis vs schizoaffective disorder, Depression, HTN, HLD, DM was admitted for increased depression in the context of many social stressors. +Depressed mood. +Changes in sleep/appetite. No current SI/HI/psychosis. +Continued ETOH use. +Anhedonia +Tearful PMHx: Bipolar Disorder, Depression, HTN, HLD, DM PPHx: Multiple past psychiatric admission for depression and psychosis PSHx: Colon Polyp Removal in 2016 ALL: NKDA, NO known food allergies Social Hx: NO tobacco, + alcohol, NO illicit drugs; Unemployed, lives w/ parents. Family Hx: Depression, schizophrenia, brother Current Medications: Active Medications Generic Name Dose Route Start Last Admin Trade Name Freq PRN Reason Stop Dose Admin Acetaminophen 650 mg 03/27/17 23:06 Tylenol 325mg Tab PO Q4 PRN Pain, moderate (4-7) Al Hydrox/Mg Hydrox/Simethicone 30 ml 03/27/17 23:06 Maalox Plus 30 Ml PO Q4 PRN Dyspepsia Amlodipine Besylate 10 mg 03/28/17 10:15 03/29/17 08:31 Norvasc PO 10 mg DAILY JUAN M Administration Atorvastatin Calcium 40 mg 03/28/17 22:00 03/28/17 21:12 Lipitor PO 40 mg HS JUAN M Administration Diphenhydramine HCl 50 mg 03/27/17 23:06 Benadryl IM Q6 PRN Extrapyramidal S/S Unable PO Diphenhydramine HCl 50 mg 03/27/17 23:06 Benadryl PO Q6 PRN Extrapyramidal Symptoms Duloxetine HCl 60 mg 03/27/17 23:15 03/28/17 21:12 Cymbalta PO 60 mg HS JUAN M Administration Folic Acid 1 mg 03/28/17 10:15 03/29/17 08:30 Folic Acid PO 1 mg DAILY JUAN M Administration Haloperidol 5 mg 03/27/17 23:06 Haldol PO Q4 PRN Agitation Haloperidol Lactate 5 mg 03/27/17 23:06 Haldol IM Q4 PRN Agitation, Unable to Take PO Hydrochlorothiazide 25 mg 03/28/17 10:15 03/29/17 08:31 Hydrodiuril PO 25 mg DAILY JUAN M Administration Lorazepam 2 mg 03/27/17 23:06 Ativan IM Q4 PRN Anxiety/Agitation,Unable PO Lorazepam 2 mg 03/27/17 23:06 Ativan PO Q4 PRN Anxiety/Agitation Losartan Potassium 100 mg 03/28/17 10:15 03/29/17 08:29 Cozaar PO 100 mg DAILY JUAN M Administration Magnesium Hydroxide 30 ml 03/27/17 23:06 Milk Of Magnesia PO HS PRN Constipation Metformin HCl 1,000 mg 03/28/17 10:15 03/29/17 08:31 Glucophage PO 1,000 mg BIDWM JUAN M Administration Fiikf-[id number] Ethyl Esters 4 gm 03/29/17 12:00 Lovaza PO DAILY JUAN M Pantoprazole Sodium 40 mg 03/28/17 10:30 03/29/17 08:30 Protonix Ec Tab PO 40 mg DAILY JUAN M Administration Quetiapine Fumarate 100 mg 03/27/17 23:15 03/28/17 21:12 Seroquel PO 100 mg HS JUAN M Administration Trazodone HCl 150 mg 03/27/17 23:15 03/28/17 21:12 Desyrel PO 150 mg HS JUAN M Administration Past Psychiatric History - Past Psychiatric History Previous Treatment History: Inpatient Pertinent Medical Hx (Current Medical&Sleep Prob, Allergies): Allergies Allergy/AdvReac Type Severity Reaction Status Date / Time No Known Allergies Allergy Verified 01/18/17 09:08 Amlodipine Besylate 10 mg PO DAILY 03/27/17 Atorvastatin [Lipitor] 40 mg PO DAILY 03/27/17 Citalopram Hydrobromide [Citalopram HBr] 40 mg PO DAILY 03/27/17 DULoxetine [Cymbalta] 60 mg PO HS 03/27/17 Duloxetine HCl [Duloxetine HCl] 30 mg PO DAILY 03/27/17 Folic Acid 1 mg PO DAILY 03/27/17 Losartan/Hydrochlorothiazide [Losartan-Hctz 100-25 mg Tab] 1 each PO DAILY 03/27 Lurasidone HCl [Latuda] 60 mg PO DAILY 03/27/17 Metformin HCl [Glucophage] 1,000 mg PO BID 03/27/17 Methotrexate 2.5 mg PO DAILY 03/27/17 Naltrexone [Revia] 50 mg PO DAILY 03/27/17 OXcarbazepine [Trileptal] 150 mg PO DAILY 03/27/17 Menan-3/Dha/Epa/Fish Oil [Menan 3 500 Softgel] 1 each PO DAILY 03/27/17 Omeprazole 40 mg PO DAILY 03/27/17 Quetiapine Fumarate [Seroquel] 100 mg PO HS 03/27/17 Topiramate [Topamax] 100 mg DAILY 03/27/17 traZODone [trazodone Hydrochloride] 150 mg PO HS 03/27/17 Mental Status Examination - Personal Presentation Personal Presentation: Looks stated age - Affect Affect: Constricted - Motor Activity Motor Activity: Calm - Reliability in Providing Information Reliability in Providing Information: Fair - Speech Speech: Organized - Mood Mood: Depressed - Formal Thought Process Formal Thought Process: No Impairment - Obsessions/Compulsions Obsessions: No Compulsions: No - Cognitive Functions Orientation: Person, Place, Situation, Time Sensorium: Alert Attention/Concentration: Attentive Estimate of Intelligence: Average Judgement: Intact, as evidence by: Insight regarding need for hospitalization Memory: Recent intact, as evidence by: Ability to recall events of the day, Remote intact, as evidenced by: Abilit to recall sig. life events, Remote intact , as evidenced by: Ability to recall historical events - Risk Risk: Diminished functioning - Strength & Assets Inventory Strength & Assets Inventory: Family support, Cooperative DSM 5 DX - DSM 5 DSM 5 Diagnosis: Bipolar Disorder; Alcohol Use Disorder - Recommended/Plan of Treatment Treatment Recommendations and Plan of Treatment: Bipolar Disorder r/o schizoaffective disorder; Alcohol Use Disorder -Admit to psychiatry -Patient to bring Latuda from home, pending his family will bring it -Increase Cymbalta to 90 mg PO Daily -Continue Trazodone 150 mg PO HS -Continue Seroquel 100 mg PO HS -Individual and group therapy -Hospitalist consult Projected ELOS: 5-7 days Discharge Plan and Discharge Criteria: Discharge when psychiatrically stable - Smoking Cessation Smoking Cessation Initiated: No Reason for not providing: Not indicated
[2017-03-29] MEDS: Omega-3-Acid Ethyl Esters 1 GM Cap PO SCH (16:39)
[2017-03-30] MEDS: Omega-3-Acid Ethyl Esters 1 GM Cap PO SCH (08:29)
[2017-03-30] MEDS: Pantoprazole 40 mg EC Tab PO SCH (08:31)
--- NOTE | 2017-03-30 13:42 | PCM.PYCHPN ---
Psychiatric Progress Note - Psychiatric Progress Note Patient seen today, length of contact: Patient evaluated, case discussed with team, chart reviewed, 35 min Patient Chief Complaint: "I'm hearing voices" Problems Identified/Issues Discussed: Patient reports that he continues to feel depressed and has started hearing voices. He discussed his many social issues, including his concerns about his son who is currently in snf for arson to the home, which killed the patient's grandson. He reports significant distress and worrying about his family. Medication Change: Yes (Increase Seroquel to 150 mg PO HS) Medical Record Reviewed: Yes Consults ordered or reviewed: Medicine consult ordered Mental Status Examination - Cognitive Function Orientation: Person, Place, Situation, Time Memory: Intact Attention: WNL Concentration: WNL Association: WNL Fund of Knowledge: WNL - Mood Mood: Depressed - Affect Affect: Constricted - Formal Thought Process Formal Thought Process: Hallucinations Psychotic Thoughts and Behaviors: +Reports AH - Suicidal Ideation Suicidal Ideation: No - Homicidal Ideation Homicidal Ideation: No Goal/Treatment Plan - Goal/Treatment Plan Need for Continued Stay: Remain at risks for inpatient hospitalization, Severe depression anxiety, Discharge may exacerbated symptoms Progress Toward Problem(s) and Goals/Treatment Plan: Bipolar Disorder r/o schizoaffective disorder; Alcohol Use Disorder -Patient's family to bring Latuda from home -Continue Cymbalta 90 mg PO Daily -Continue Trazodone 150 mg PO HS -Increase Seroquel to 150 mg PO HS -Individual and group therapy -Hospitalist consult -Disposition planning Estimated Date of D/C: 04/02/17
[2017-03-30] MEDS: Bacitracin OINT 15GM TOP SCH (21:09)
[2017-03-31] MEDS: Pantoprazole 40 mg EC Tab PO SCH (08:30)
[2017-03-31] MEDS: Bacitracin OINT 15GM TOP SCH ×2 (08:31→16:54)
[2017-03-31] MEDS: Omega-3-Acid Ethyl Esters 1 GM Cap PO SCH (08:32)
[2017-03-31] MEDS ORDERED: LATUDA 80 MG PO SCH (11:45)
--- NOTE | 2017-03-31 14:59 | PCM.PYCHPN ---
Psychiatric Progress Note - Psychiatric Progress Note Patient seen today, length of contact: Patient evaluated, case discussed with team, chart reviewed, 35 min Patient Chief Complaint: "I'm feeling a little better" Problems Identified/Issues Discussed: Patient reports that he continues to feel depressed, but states that his mood is starting to improve. He denies current auditory hallucinations. Psychoeducation and supportive psychotherapy provided. Patient discussed his continued social stressors and how they contribute to his depression. Medication Change: Yes (Restart Latuda 80 mg PO HS) Medical Record Reviewed: Yes Mental Status Examination - Cognitive Function Orientation: Person, Place, Situation, Time Memory: Intact Attention: WNL Concentration: WNL Association: WNL Fund of Knowledge: [facility] Decription of patient's judgement and insights: Fair I/J - Mood Mood: Depressed - Affect Affect: Constricted - Speech Speech: Appropriate - Formal Thought Process Formal Thought Process: No Impairment Psychotic Thoughts and Behaviors: Denies current AH/VH - Suicidal Ideation Suicidal Ideation: No - Homicidal Ideation Homicidal Ideation: No Goal/Treatment Plan - Goal/Treatment Plan Need for Continued Stay: Remain at risks for inpatient hospitalization, Severe depression anxiety, Discharge may exacerbated symptoms Progress Toward Problem(s) and Goals/Treatment Plan: Bipolar Disorder r/o schizoaffective disorder; Alcohol Use Disorder -Restart Latuda 80 mg PO HS -Continue Cymbalta 90 mg PO Daily -Continue Trazodone 150 mg PO HS -Continue Seroquel 150 mg PO HS -Individual and group therapy -Hospitalist consult -Disposition planning Estimated Date of D/C: 04/05/17
[2017-03-31] MEDS: LATUDA 80 MG PO SCH (21:25)
--- NOTE | 2017-03-31 22:26 | CON ---
MEDICAL CONSULTATION DATE: 03/31/2017 The patient was admitted on 03/27/2017, but I was only informed about the consult yesterday, so the patient was seen today morning. CHIEF COMPLAINT: The patient is admitted for depression. The patient denies any specific medical complaint. REVIEW OF SYSTEMS: Negative for headache, dizziness, syncope, loss of consciousness, chest pain, shortness of breath, nausea, vomiting, diarrhea, constipation, any knee joint or extremity pain. Review of systems of all other organ system is unremarkable. PAST MEDICAL HISTORY: Significant for hypertension, diabetes, morbid obesity, and sleep apnea. PAST SURGICAL HISTORY: Unremarkable. PERSONAL HISTORY: The patient is nonsmoker, nondrinker, no substance abuse. PSYCHIATRIC HISTORY: The patient has history of depression. MEDICATIONS: The patient is on multiple medications, which is as per reconciliation sheet. ALLERGIES: THE PATIENT IS NOT ALLERGIC TO ANY MEDICATIONS. FAMILY HISTORY: Noncontributory. PHYSICAL EXAMINATION: GENERAL: Well-built, well-nourished, morbidly obese 47-year-old male in no acute distress. VITAL SIGNS: Temperature 97.1, pulse 78, respirations 18, blood pressure 133/84, saturation 100%. HEENT: Pupils reacting to light. No JVD. No thyromegaly. No lymphadenopathy. No nystagmus. Normocephalic, atraumatic scalp. HEART: S1 and S2 normal, regular. No significant murmur, gallop, or rub is heard. LUNGS: Exam shows good bilateral air entry. No rales or rhonchi. ABDOMEN: Soft and nontender. No organomegaly. . Bowel sounds are present. EXTREMITIES: No edema. No calf swelling. No tenderness. No acute ischemia. CENTRAL NERVOUS SYSTEM: Essentially unchanged. DIAGNOSTIC DATA: Available diagnostic data reviewed. Accu-Cheks are acceptable. Hemoglobin is A1c 5.7. Cholesterol is 165. Vitamin B12 level is 298, folic acid is 5.7, TSH is 5.2. WBC 7.6, hemoglobin 16.3, hematocrit 49, and platelets 246. The patient's MCV is 100.4, consistent with macrocytic anemia from B12 deficiency. SMA-12 is essentially unremarkable. Urinalysis is negative. Alcohol level was 83 on admission. RPR is negative. ADMITTING IMPRESSION: Type 2 controlled diabetes, hypertension, elevated cholesterol, hypothyroidism, vitamin B12 deficiency in a patient who is admitted to psychiatric unit for advanced depression. PLAN: As ordered. Case and plan discussed with patient. Karlos Miguel MD [email or web address]
[2017-04-01] MEDS: Omega-3-Acid Ethyl Esters 1 GM Cap PO SCH (08:29)
[2017-04-01] MEDS: Bacitracin OINT 15GM TOP SCH ×2 (08:32→17:07)
[2017-04-01] MEDS: Pantoprazole 40 mg EC Tab PO SCH (08:33)
--- NOTE | 2017-04-01 08:44 | PN ---
DATE: 04/01/2017 SUBJECTIVE: The patient seen and examined. Interim events noted. Psychiatry followup and intervention noted and appreciated. The patient remains in Geropsychiatric Unit. Denies any specific complaint of chest pain. No shortness of breath. PHYSICAL EXAMINATION GENERAL: The patient is in no acute distress. VITAL SIGNS: Stable. LUNGS: Clear bilateral air entry. HEART: S1 and S2 regular. No acute ischemia. ABDOMEN: Soft, nontender. EXTREMITIES: No edema, no calf swelling, no tenderness. CENTRAL NERVOUS SYSTEM: Essentially unchanged. DIAGNOSTIC DATA: Available diagnostic data reviewed. ASSESSMENT AND PLAN: Overall, medical condition is stable. Plan as ordered. Karlos Miguel MD
--- NOTE | 2017-04-01 10:09 | PCM.PYCHPN ---
Psychiatric Progress Note - Psychiatric Progress Note Patient seen today, length of contact: Patient evaluated, case discussed with team, chart reviewed, 35 min Patient Chief Complaint: "I'm feeling a little better" Problems Identified/Issues Discussed: No significant events overnight. Patient reports that he continues to feel depressed, but states that his mood is starting to improve. He denies current auditory hallucinations. Psychoeducation and supportive psychotherapy provided. NO adverse effects to medications reported. Medication Change: No Medical Record Reviewed: Yes Mental Status Examination - Cognitive Function Orientation: Person, Place, Situation, Time Memory: Intact Attention: WNL Concentration: WNL Association: [facility] Fund of Knowledge: [facility] Decription of patient's judgement and insights: Fair I/J - Mood Mood: Depressed - Affect Affect: Constricted - Speech Speech: Appropriate - Formal Thought Process Formal Thought Process: No Impairment Psychotic Thoughts and Behaviors: Denies current AH/VH - Suicidal Ideation Suicidal Ideation: No - Homicidal Ideation Homicidal Ideation: No Goal/Treatment Plan - Goal/Treatment Plan Need for Continued Stay: Remain at risks for inpatient hospitalization, Severe depression anxiety, Discharge may exacerbated symptoms Progress Toward Problem(s) and Goals/Treatment Plan: Bipolar Disorder r/o schizoaffective disorder; Alcohol Use Disorder -Continue Latuda 80 mg PO HS -Continue Cymbalta 90 mg PO Daily -Continue Trazodone 150 mg PO HS -Continue Seroquel 150 mg PO HS -Individual and group therapy -Hospitalist consult -Disposition planning Estimated Date of D/C: 04/05/17
[2017-04-01] MEDS: LATUDA 80 MG PO SCH (21:06)
[2017-04-02] MEDS: Omega-3-Acid Ethyl Esters 1 GM Cap PO SCH ×2 (09:10→18:05)
[2017-04-02] MEDS: Pantoprazole 40 mg EC Tab PO SCH (09:11)
[2017-04-02] MEDS: Bacitracin OINT 15GM TOP SCH ×3 (09:12→18:46)
--- NOTE | 2017-04-02 11:12 | PCM.PYCHPN ---
Psychiatric Progress Note - Psychiatric Progress Note Patient seen today, length of contact: Patient evaluated, case discussed with team, chart reviewed, 35 min Patient Chief Complaint: "I'm feeling a little better" Problems Identified/Issues Discussed: Patient reports that his mood is improving. Improved sleep/appetite. He denies current auditory hallucinations. Psychoeducation and supportive psychotherapy provided. NO adverse effects to medications reported. Medication Change: No Medical Record Reviewed: Yes Mental Status Examination - Cognitive Function Orientation: Person, Place, Situation, Time Memory: Intact Attention: WNL Concentration: WNL Association: WNL Fund of Knowledge: [facility] Decription of patient's judgement and insights: Fair I/J - Mood Mood: Depressed - Affect Affect: Constricted - Speech Speech: Appropriate - Formal Thought Process Formal Thought Process: No Impairment Psychotic Thoughts and Behaviors: Denies current AH/VH - Suicidal Ideation Suicidal Ideation: No - Homicidal Ideation Homicidal Ideation: No Goal/Treatment Plan - Goal/Treatment Plan Need for Continued Stay: Remain at risks for inpatient hospitalization, Severe depression anxiety, Discharge may exacerbated symptoms Progress Toward Problem(s) and Goals/Treatment Plan: Bipolar Disorder r/o schizoaffective disorder; Alcohol Use Disorder -Continue Latuda 80 mg PO HS -Continue Cymbalta 90 mg PO Daily -Continue Trazodone 150 mg PO HS -Continue Seroquel 150 mg PO HS -Individual and group therapy -Hospitalist consult -Disposition planning Estimated Date of D/C: 04/05/17
--- NOTE | 2017-04-02 12:01 | PN ---
DATE: 04/02/2017 SUBJECTIVE: The patient seen and examined. Interim events noted. Psychiatry followup and intervention noted and appreciated. The patient remains in Geropsychiatric Unit. The patient did denying any specific complaint of chest pain, no shortness of breath, feels little better, and depression is improving. PHYSICAL EXAMINATION: GENERAL: The patient is in no acute distress. VITAL SIGNS: Stable. HEART: S1 and S2 normal and regular. LUNGS: Good bilateral air exchange. ABDOMEN: Soft and nontender. EXTREMITIES: No edema. No calf swelling or tenderness. No acute ischemia. CENTRAL NERVOUS SYSTEM: Essentially unchanged. DIAGNOSTIC DATA: Available diagnostic data reviewed . ASSESSMENT AND PLAN: Overall, the patient is medically stable. Plan as ordered. Karlos Miguel MD
[2017-04-02] MEDS: LATUDA 80 MG PO SCH (21:03)
[2017-04-03] MEDS: Omega-3-Acid Ethyl Esters 1 GM Cap PO SCH ×2 (09:03→17:11)
[2017-04-03] MEDS: Pantoprazole 40 mg EC Tab PO SCH (09:06)
[2017-04-03] MEDS: Bacitracin OINT 15GM TOP SCH ×2 (09:08→16:18)
[2017-04-03] MEDS: LATUDA 80 MG PO SCH (21:13)
[2017-04-04] MEDS: Bacitracin OINT 15GM TOP SCH ×2 (08:48→17:12)
[2017-04-04] MEDS: Omega-3-Acid Ethyl Esters 1 GM Cap PO SCH ×2 (08:52→17:12)
[2017-04-04] MEDS: Pantoprazole 40 mg EC Tab PO SCH (08:53)
--- NOTE | 2017-04-04 11:54 | PN ---
DATE: SUBJECTIVE: The patient seen and examined. The patient feels okay. No specific medical complaint. No chest pain. No shortness of breath. PHYSICAL EXAMINATION: GENERAL: The patient is in no acute distress. VITAL SIGNS: Stable. HEENT: S1 and S2 normal, regular. LUNGS: Good bilateral air entry. ABDOMEN: Soft and nontender. EXTREMITIES: No edema. No calf swelling or tenderness. No acute ischemia. CENTRAL NERVOUS SYSTEM: Essentially unchanged. DIAGNOSTIC DATA: Available diagnostic data reviewed. ASSESSMENT AND PLAN: Overall, the patient is medically stable. Plan as ordered. Karlos Miguel MD
--- NOTE | 2017-04-04 15:44 | PCM.PYCHPN ---
Psychiatric Progress Note - Psychiatric Progress Note Patient seen today, length of contact: Patient evaluated, case discussed with team, chart reviewed, 35 min Patient Chief Complaint: pt has been less depressed and less irritible and mood has improved with latuda and seroquel and no side effects to meds . DSM 5 Symptoms Update: bipolar disorder Medication Change: No Medical Record Reviewed: Yes Mental Status Examination - Cognitive Function Orientation: Person, Place, Situation, Time Memory: Intact Attention: WNL Concentration: WNL Association: WNL Fund of Knowledge: WNL - Mood Mood: Depressed - Affect Affect: Constricted - Speech Speech: Appropriate - Formal Thought Process Formal Thought Process: No Impairment - Suicidal Ideation Suicidal Ideation: No - Homicidal Ideation Homicidal Ideation: No Goal/Treatment Plan - Goal/Treatment Plan Need for Continued Stay: Remain at risks for inpatient hospitalization, Severe depression anxiety, Discharge may exacerbated symptoms Progress Toward Problem(s) and Goals/Treatment Plan: pt will be d/c wednesday if remains stable .continue the current meds. Estimated Date of D/C: 04/05/17
[2017-04-04] MEDS: LATUDA 80 MG PO SCH (21:22)
[2017-04-05 06:21] VITALS: BP 130/74; PULSE 80; RESP 18; TEMP 97.1
[2017-04-05] MEDS: Bacitracin OINT 15GM TOP SCH (08:53)
[2017-04-05] MEDS: Pantoprazole 40 mg EC Tab PO SCH (08:54)
[2017-04-05] MEDS: Omega-3-Acid Ethyl Esters 1 GM Cap PO SCH (08:56)
--- NOTE | 2017-04-05 09:01 | PCM.PYCHDC ---
Mental Status Examination - Mental Status Examination Orientation: Person, Place, Situation, Time Memory: Intact Mood: Neutral Affect: Broad Speech: Appropriate Attention: WNL Concentration: WNL Association: WNL Fund of Knowledge: WNL Formal Thought Process: No Impairment Description of patient's judgement and insight: Fair I/J Psychotic Thoughts and Behaviors: Denies current AH/VH Suicidal Ideation: No Current Homicidal Ideation?: No Discharge Summary - Discharge Note Reason for Hospitalization: HPI: 47 year old male PMH Bipolar Disorder w/ psychosis vs schizoaffective disorder, Depression, HTN, HLD, DM was admitted for increased depression in the context of many social stressors. +Depressed mood. +Changes in sleep/appetite. No current SI/HI/psychosis. +Continued ETOH use. +Anhedonia +Tearful PMHx: Bipolar Disorder, Depression, HTN, HLD, DM PPHx: Multiple past psychiatric admission for depression and psychosis PSHx: Colon Polyp Removal in 2016 ALL: NKDA, NO known food allergies Social Hx: NO tobacco, + alcohol, NO illicit drugs; Unemployed, lives w/ parents. Family Hx: Depression, schizophrenia, brother Consultations:: List each consultation separately and include: 1. Reason for request. 2. Findings. 3. Follow-up Consultations: Medicine consult Summary of Hospital Course include:: 1. Description of specific treatment plan utilized for patients during their course of treatmen. 2. Summarize the time- course for resolution of acute symptoms and/or regressed behaviors. 3. Describe issues identified and worked on during hospitalization. 4. Describe medication utilized. 5. Describe medical problems identified and treated. 6. Reassessment of suicide risk Summary of Hospital Course: Patient was admitted to the psychiatry unit. Individual and group therapy were provided. He was stabilized on Cymbalta 90 mg PO HS, Latuda 80 mg PO HS, Seroquel 150 mg PO HS and Trazodone 150 mg PO HS. Patient no longer reports depressed mood or auditory hallucinations. He is psychiatrically stable for discharge with outpatient follow-up. - Final Diagnosis (DSM 5) Condition upon Discharge: STABLE DSM 5: Bipolar Disorder, Alcohol Use Disorder Disposition: HOME/ ROUTINE Follow-up Treatment Plan: Bipolar Disorder r/o schizoaffective disorder; Alcohol Use Disorder; now clinically improved and psychiatrically stable for discharge. -Continue Latuda 80 mg PO HS -Continue Cymbalta 90 mg PO Daily -Continue Trazodone 150 mg PO HS -Continue Seroquel 150 mg PO HS -Discharge with outpatient follow-up Discharge >35 min Prescriptions/Medication Reconciliation: DULoxetine [Cymbalta] 90 mg PO HS #90 ecc Lurasidone HCl [Latuda] 80 mg PO HS #30 tablet QUEtiapine [SEROquel] 150 mg PO HS #90 tab - Smoking Cessation Smoking Cessation Medication prescribed: No Reason for not providing: Not indicated - Antipsychotic Medications Pt discharged on 2 or more routine antipsychotic medications: Yes - Justification for 2 or more meds Failed 3 or more trials of Monotherapy: List medications: Patient failed monotheapy with several antipsychotics
--- NOTE | 2017-04-07 08:41 | PN ---
DATE: 04/05/2017 SUBJECTIVE: The patient seen and examined. Interim events noted. Psychiatry followup and intervention noted and appreciated. The patient remains in geropsychiatric unit. The patient denies any specific medical complaints. No chest pain. No shortness of breath. PHYSICAL EXAMINATION: GENERAL: The patient is in no acute distress. VITAL SIGNS: Stable. HEART: S1 and S2 normal and regular. LUNGS: Good bilateral air exchange. ABDOMEN: Soft and nontender. EXTREMITIES: No edema. No calf swelling or tenderness. No acute ischemia. CENTRAL NERVOUS SYSTEM: Essentially unchanged. ASSESSMENT: Overall, the patient's general medical condition is stable. PLAN: As ordered, the patient to be discharge today. Karlos Miguel MD
--- NOTE | 2017-04-08 00:24 | PN ---
DATE: 04/03/2017 SUBJECTIVE: The patient has been seen today. Chart reviewed and case discussed with treatment application development team lead. The patient has a significant history of bipolar disorder, who has been admitted because of significantly acute manic episodes with mood outburst and anger outburst and has been currently stabilized in the unit with the help of Latuda and Seroquel and no side effects reported. The patient has remained less irritable, less labile, less angry, but still remained with a very poor insight, poor judgment. Patient is not exhibiting any suicidal ideation nor inhibition, is able to contract with safety. Patient's insight and judgment remains poor because of significant symptoms of bipolar disorder with poor impulse control and poor insight, poor judgment; therefore, patient is still maintained in the unit for further treatment and stabilization followup care. MENTAL STATUS EXAMINATION: The patient appears to be very much alert, oriented to place, person and situation. The memory appears to be poor and concentration is poor. Patient has poor insight, poor judgment regarding his depression and patient is in need of further treatment and stabilization. IMPRESSION: Bipolar disorder, most recent episode may be depressed type, treatment. We will continue with the current regimen of Seroquel and Latuda and further titrate his medication as needed to stabilize the patient, engage the patient in therapy and go with further management. Patient has stabilized. Treatment team will initiate his disposition planning. Patient will remain calm and cooperative right now and is able to work with the team regarding his placement and referral for after care whenever the patient is stabilized in the unit. Cornelio Chamberlain MD
== END 2017-04-05 09:30 | disposition home or self-care (01) | DRG 430 ==
LOC: H.ER 17:52 → H.ERHOLD 19:37 → H.STEP 22:59
PROVIDERS: ADMIT Psychiatry & Neurology Psychiatry; ATTEND Psychiatry & Neurology Psychiatry
PROC: GZHZZZZ Group Psychotherapy (ICD-10-PCS; principal; 2017-03-27)
PROC: GZ56ZZZ Individual Psychotherapy, Supportive (ICD-10-PCS; 2017-03-27)
DX: F31.9 Bipolar disorder, unspecified (principal); R45.851 Suicidal ideations; Z68.41 Body mass index [BMI] 40.0-44.9, adult; E53.8 Deficiency of other specified B group vitamins; E11.9 Type 2 diabetes mellitus without complications; I10 Essential (primary) hypertension; F41.9 Anxiety disorder, unspecified; K21.9 Gastro-esophageal reflux disease without esophagitis; E78.00 Pure hypercholesterolemia, unspecified; E78.5 Hyperlipidemia, unspecified; M06.9 Rheumatoid arthritis, unspecified; J45.909 Unspecified asthma, uncomplicated; E03.9 Hypothyroidism, unspecified; G47.30 Sleep apnea, unspecified; Z72.89 Other problems related to lifestyle; E66.01 Morbid (severe) obesity due to excess calories; F17.200 Nicotine dependence, unspecified, uncomplicated

== ENCOUNTER 2017-10-19 15:17 | Inpatient (IN) | payer MEDICAID ==
[2017-10-19 15:18] VITALS: BMI 43.8
[2017-10-19 16:25] LABS: BASO # 0.1 K/uL (0.0-0.2); BASO % 1.2 % (0.0-2.0); EOS # 0.3 K/uL (0.0-0.7); EOS % 4.1 % (0.0-4.0); HEMOGLOBIN 15.5 g/dL (12.0-18.0); LYMPH # 2.4 K/uL (1.0-4.3); LYMPH % 38.6 % (20.0-40.0); MEAN CELL VOLUME 99.8 fl (80.0-94.0); MEAN CORPUSCULAR HGB CONC 34.1 g/dL (33.0-37.0); MEAN PLATELET VOLUME 8.9 fl (7.2-11.7); MONO # 0.6 K/uL (0.0-0.8); MONO % 9.8 % (0.0-10.0); NEUT # 2.9 K/uL (1.8-7.0); NEUT % 46.3 % (50.0-75.0); NRBC % 0.1 % (0.0-0.0); RBC 4.56 Mil/uL (4.40-5.90); RED CELL DISTRIBUTION WIDTH 13.4 % (11.5-14.5); WHITE BLOOD COUNT 6.2 K/uL (4.8-10.8)
[2017-10-19 16:35] LABS: ALB/GLOB RATIO 1.3 (1.0-2.1); ALBUMIN 4.3 g/dL (3.5-5.0); ALT/SGPT 94 U/L (21-72); AST/SGOT 84 U/L (17-59); BLOOD UREA NITROGEN 12 mg/dl (9-20); CALCIUM 9.8 mg/dL (8.4-10.2); GFR AFRICAN-AMERICAN > 60; GFR NON-AFRICAN AMERICAN > 60
[2017-10-19 16:42] LABS: ACETAMINOPHEN < 10.0 ug/ml (10.0-30.0); SALICYLATE < 1.0 mg/dl
[2017-10-19 16:43] LABS: PARTIAL THROMBOPLASTIN TIME 31.4 Seconds (25.6-37.1); PROTHROMBIN TIME 10.7 Seconds (9.8-13.1)
--- NOTE | 2017-10-19 16:43 | RAD ---
HISTORY: depression suicidal COMPARISON: 03/27/2017 FINDINGS: LUNGS: No active pulmonary disease. PLEURA: No significant pleural effusion identified, no pneumothorax apparent. CARDIOVASCULAR: No radiographic findings to suggest acute or significant cardiovascular disease. OSSEOUS STRUCTURES: No significant abnormalities. VISUALIZED UPPER ABDOMEN: Normal. OTHER FINDINGS: None. IMPRESSION: No active disease. No significant interval change compared to the prior examination(s).
--- NOTE | 2017-10-19 16:52 | ED PDOC ---
HPI: Psych/Substance Abuse Time Seen by Provider: 10/19/17 15:34 Chief Complaint (Nursing): Psychiatric Evaluation Chief Complaint (Provider): Suicidal ideation, depression ED Caveat: Intoxicated History Per: Patient History/Exam Limitations: intoxication Current Symptoms Are (Timing): Still Present Associated Symptoms: Suicidal Thoughts. denies: Suicidal Plan Additional Complaint(s): 47yo male with history of depression (compliant with medications), hypertension , diabetes, and dyslipidemia comes to ED for evaluation of ongoing depression for the past 2 weeks. Of note, HPI is unreliable as patient is intoxicated. He states his depression has worsened over the past 2 weeks since he had suicidal ideations; patient denies any suicidal plan. He admits to drinking alcohol yesterday and today and states he drank 8 beers over the course of two days. He denies any drug use and states he has been compliant with his depression medications. He denies any auditory or visual hallucinations as well. No other medical complaints. Past Medical History Reviewed: Historical Data, Nursing Documentation, Vital Signs Vital Signs: Last Vital Signs Temp 98.8 F 10/19/17 15:21 Pulse 86 10/19/17 15:21 Resp 18 10/19/17 15:21 BP 115/77 10/19/17 15:21 Pulse Ox 99 10/19/17 15:21 - Medical History PMH: Anxiety, Arthritis, Asthma, Back Problems (herniated disc), Bipolar Disorder, Depression, Diabetes (borderline type II), GERD, HTN, Hypercholesterolemia, Rheumatoid Arthritis, Schizophrenia Denies: Hepatitis, HIV, Chronic Kidney Disease, Seizures, Sexually Transmitted Disease - Surgical History Surgical History: No Surg Hx - Family History Family History: States: Unknown Family Hx - Social History Current smoker - smoking cessation education provided: No Ex-Smoker (has not smoked in the last 12 months): No Drugs: Denies - Immunization History Hx Tetanus Toxoid Vaccination: No Hx Influenza Vaccination: No Hx Pneumococcal Vaccination: No - Home Medications Home Medications: Ambulatory Orders Medication Instructions Recorded Losartan/Hydrochlorothiazide 1 each PO DAILY 03/27/17 [Losartan-Hctz 100-25 mg Tab] Calhoun-3/Dha/Epa/Fish Oil [Calhoun 3 1 each PO DAILY 03/27/17 500 Softgel] traZODone [Desyrel] 150 mg PO HS 03/27/17 Atorvastatin [Lipitor] 40 mg PO HS tab 04/05/17 DULoxetine [Cymbalta] 90 mg PO HS #90 ecc 04/05/17 Folic Acid 1 mg PO DAILY tab 04/05/17 Lurasidone HCl [Latuda] 80 mg PO HS #30 tablet 04/05/17 MetFORMIN [glucoPHAGE] 1,000 mg PO BIDWM tab 04/05/17 QUEtiapine [SEROquel] 150 mg PO HS #90 tab 04/05/17 amLODIPine [Norvasc] 10 mg PO DAILY tab 04/05/17 - Allergies Allergies/Adverse Reactions: Allergies Allergy/AdvReac Type Severity Reaction Status Date / Time No Known Allergies Allergy Verified 01/18/17 09:08 Review of Systems ROS Statement: Except As Marked, All Systems Reviewed And Found Negative (as per HPI) Psych: Positive for: Depression, Suicidal ideation Physical Exam - Reviewed Nursing Documentation Reviewed: Yes Vital Signs Reviewed: Yes - Physical Exam Appears: Positive for: In Acute Distress (acute psychiatric distress) Head Exam: Positive for: ATRAUMATIC, NORMOCEPHALIC Skin: Positive for: Warm, Dry Eye Exam: Positive for: PERRL, Conjunctival injection (bilaterally), Other ( patient is tearful) ENT: Negative for: Pharyngeal Erythema, Tonsillar Exudate Neck: Positive for: Painless ROM, Supple Cardiovascular/Chest: Positive for: Regular Rate, Rhythm, Chest Non Tender. Negative for: Murmur Respiratory: Positive for: Normal Breath Sounds. Negative for: Wheezing Gastrointestinal/Abdominal: Positive for: Soft, Other (protuberant nontender). Negative for: Tenderness Back: Positive for: Normal Inspection. Negative for: Decreased ROM Extremity: Positive for: Normal ROM. Negative for: Deformity Lymphatic: Negative for: Adenopathy Neurologic/Psych: Positive for: Alert. Negative for: Motor/Sensory Deficits - Laboratory Results Result Diagrams: 10/19/17 16:18 10/19/17 16:18 - ECG O2 Sat by Pulse Oximetry: 99 (RA) Pulse Ox Interpretation: Normal Medical Decision Making Medical Decision Making: Impression: Depression and suicidal ideation Plan: -- Labs -- Crisis evaluation Accession No. : [id number] Patient Name / ID : ELIUD TAN / [id number] Exam Date : 10/19/2017 16:15:02 ( Approved ) Study Comment : Sex / Age : M / 47Y Creator : Deni Rojas MD Dictator : Deni Rojas MD [employer] Supervisor : Insurance Operations Rep : Deni Rojas MD Approver2 : Report Date : 10/19/2017 16:41:54 My Comment : HISTORY: depression suicidal COMPARISON: 03/27/2017 FINDINGS: LUNGS: No active pulmonary disease. PLEURA: No significant pleural effusion identified, no pneumothorax apparent. CARDIOVASCULAR: No radiographic findings to suggest acute or significant cardiovascular disease. OSSEOUS STRUCTURES: No significant abnormalities. VISUALIZED UPPER ABDOMEN: Normal. OTHER FINDINGS: None. IMPRESSION: No active disease. No significant interval change compared to the prior examination(s). Elevated BAL . No emergently significant lab abnormalities Medically stable for psychiatric admission Evaluated by MADELAINE Rausch. Admission to psych Bipolar Disorder, Dr Chamberlain Scribe Attestation: Documented by Terra Olmos acting as a scribe for Jerica Wang MD. Provider Attestation: All medical record entries made by the Scribe were at my direction and personally dictated by me. I have reviewed the chart and agree that the record accurately reflects my personal performance of the history, physical exam, medical decision making, and the department course for this patient. I have also personally directed, reviewed, and agree with the discharge instructions and disposition. Disposition - Disposition Forms: [employer] (Croatian)
[2017-10-19 17:04] LABS: BARBITURATES, UR NEGATIVE (NEGATIVE); BENZODIAZEPINES, UR NEGATIVE (NEGATIVE); OPIATES, UR NEGATIVE (NEGATIVE); PHENCYCLIDINE, UR NEGATIVE (NEGATIVE)
[2017-10-19 20:42] VITALS: O2SAT 98
[2017-10-19] MEDS ORDERED: Alum-Mag Hydrox-Simethicone Susp (30 mL) PO PRN (21:16)
[2017-10-19] MEDS ORDERED: Magnesium Hydroxide Susp 30 ml UD PO PRN (21:16)
[2017-10-19] MEDS ORDERED: DiphenhydrAMINE 50 mg/ml Inj IM PRN (21:16)
[2017-10-19] MEDS ORDERED: Albuterol HFA 90 mcg/actuation (8 g) IH PRN (21:49)
--- NOTE | 2017-10-19 22:41 | PCM.BM ---
Treatment Plan Problems - Problems identified on initial assessmt Hopelessness/ Helplessness Date Initiated: 10/19/17 Time Initiated: 22:38 Assessment reference: NA Status: Active Anxiety Date Initiated: 10/19/17 Time Initiated: 22:39 Assessment reference: NA Status: Active Altered Sleep Patterns Date Initiated: 10/19/17 Time Initiated: 22:39 Assessment reference: NA Status: Active Treatment assets and liabiliti Patient Assests: adapts well, cooperative, ADL independent, good support system , negotiates basic needs (alcohol abuse, homelessness) Patient Liabilities: medical problems (alcohol abuse ), other (alcohol abuse) - Milieu Protocol Maintain good personal hygiene: every shift Encourage regular showers, every shift Remind patient to perform daily oral care Conduct patient checks and document Observation sheet: Q15 minutes Maintain personal safety: every shift Educate patient to report safety concerns to staff, every shift Monitor environment for contraband/sharps Medication safety: Monitor for expected outcome, potential side effects: every shift, Assess barriers to learning: every shift, Assess readiness for medication education: every shift
[2017-10-20 06:34] LABS: T4 5.47 ug/dl (5.5-11.0)
[2017-10-20] MEDS ORDERED: Patient's Own Med (Losartan/Hydrochlorothiazide [Losartan-Hctz 100-25 Mg Tab] 1 TAB) PO SCH (09:00)
[2017-10-20] MEDS: Pantoprazole 40 mg EC Tab PO SCH (09:14)
[2017-10-20] MEDS: Omega-3-Acid Ethyl Esters 1 GM Cap PO SCH ×2 (09:15→17:04)
--- NOTE | 2017-10-20 14:15 | CARD ---
APPROVED REPORT EKG Measurement Heart [id number] <Conclusion> Normal sinus rhythm Nonspecific ST and T wave abnormality Abnormal ECG
--- NOTE | 2017-10-20 14:39 | PCM.PSYCH ---
Initial Psychiatric Evaluation - Initial Psychiatric Evaluation Type of Admission: Voluntary Legal Status: Capacity Chief Complaint (in patient's own words): I am having a hard time because of my personal problems Patient's Reaction to Hospitalization: pt requested help History of Present Illness and Precipitating Events: Patient is a 47 y/o male with past history of Bipolar Disorder with manic episodes and anger outbust in the past. Patient has been feeling increasingly depressed due to strained relation with his daughter, his son in [facility] and the recent of his grand son pt has been using increasing amounts of alcohol , and on day of evaluation was asked by his mother to leave the house he became increasingly depressed and started having suicidal ideations, pt presented to the ER requesting help reported feeling hopeless and helpless, poor slepp , low energy denied current S/H I Current Medications: Active Medications Generic Name Dose Route Start Last Admin Trade Name Freq PRN Reason Stop Dose Admin Acetaminophen 650 mg 10/19/17 21:16 Tylenol 325mg Tab PO Q4 PRN Pain, moderate (4-7) Al Hydrox/Mg Hydrox/Simethicone 30 ml 10/19/17 21:16 Maalox Plus 30 Ml PO Q4 PRN Dyspepsia Albuterol 2 puff 10/19/17 21:49 Ventolin Hfa 90 Mcg/Actuation (8 G) IH Q6H PRN Shortness of Breath Amlodipine Besylate 10 mg 10/20/17 09:00 10/20/17 09:15 Norvasc PO 10 mg DAILY JUAN M Administration Atorvastatin Calcium 40 mg 10/20/17 09:00 Lipitor PO DAILY JUAN M Diphenhydramine HCl 50 mg 10/19/17 21:16 Benadryl IM Q6 PRN Extrapyramidal S/S Unable PO Diphenhydramine HCl 50 mg 10/19/17 21:16 Benadryl PO Q6 PRN Extrapyramidal Symptoms Diphenhydramine HCl 50 mg 10/19/17 21:19 Benadryl PO HS PRN Sleep Folic Acid 1 mg 10/20/17 09:00 10/20/17 09:14 Folic Acid PO 1 mg DAILY JUAN M Administration Haloperidol 5 mg 10/19/17 21:16 Haldol PO Q4 PRN Agitation Haloperidol Lactate 5 mg 10/19/17 21:16 Haldol IM Q4 PRN Agitation, Unable to Take PO Hydrochlorothiazide 25 mg 10/20/17 09:00 10/20/17 09:15 Hydrodiuril PO 25 mg DAILY JUAN M Administration Lorazepam 2 mg 10/19/17 21:16 Ativan IM Q4 PRN Anxiety/Agitation,Unable PO Lorazepam 2 mg 10/19/17 21:16 Ativan PO Q4 PRN Anxiety/Agitation Losartan Potassium 100 mg 10/20/17 09:00 10/20/17 09:16 Cozaar PO 100 mg DAILY JUAN M Administration Magnesium Hydroxide 30 ml 10/19/17 21:16 Milk Of Magnesia PO HS PRN Constipation Metformin HCl 1,000 mg 10/20/17 08:00 10/20/17 09:14 Glucophage PO 1,000 mg BIDWM JUAN M Administration [id number] Ethyl Esters 2 gm 10/20/17 09:00 10/20/17 09:15 Lovaza PO 2 gm BID JUAN M Administration Oxcarbazepine 150 mg 10/20/17 09:00 10/20/17 09:14 Trileptal PO 150 mg BID JUAN M Administration Pantoprazole Sodium 40 mg 10/20/17 09:00 10/20/17 09:14 Protonix Ec Tab PO 40 mg DAILY JUAN M Administration Quetiapine Fumarate 200 mg 10/20/17 22:00 Seroquel PO HS JUAN M Topiramate 100 mg 10/20/17 09:00 10/20/17 09:14 Topamax PO 100 mg BID JUAN M Administration Trazodone HCl 150 mg 10/19/17 22:00 10/19/17 22:23 Desyrel PO 150 mg HS JUAN M Administration Past Psychiatric History - Past Psychiatric History Explanation of prior treatment: MULTIPLE INPATIENT HOSPITALIZATION, [facility] History of ETOH/Drug Use: HX OF ALCOHOL USE Pertinent Medical Hx (Current Medical&Sleep Prob, Allergies): Allergies Allergy/AdvReac Type Severity Reaction Status Date / Time No Known Allergies Allergy Verified 01/18/17 09:08 Losartan/Hydrochlorothiazide [Losartan-Hctz 100-25 mg Tab] 1 tab PO DAILY traZODone [Desyrel] 150 mg PO HS 03/27/17 Atorvastatin [Lipitor] 40 mg PO HS tab 04/05/17 Folic Acid 1 mg PO DAILY tab 04/05/17 Lurasidone HCl [Latuda] 80 mg PO HS #30 tablet 04/05/17 MetFORMIN [glucoPHAGE] 1,000 mg PO BIDWM tab 04/05/17 QUEtiapine [SEROquel] 150 mg PO HS #90 tab 04/05/17 amLODIPine [Norvasc] 10 mg PO DAILY tab 04/05/17 Albuterol HFA [Ventolin HFA 90 mcg/actuation (8 g)] 2 puff IH Q6H PRN 10/19/17 Methotrexate [Methotrexate] 15 mg PO TU 10/19/17 Naltrexone [Revia] 50 mg PO DAILY 10/19/17 OXcarbazepine [Trileptal] 150 mg PO Q12H 10/19/17 Deaver-3 Fatty Acids [Deaver-3] 2 cap PO BID 10/19/17 Omeprazole [Omeprazole] 40 mg PO DAILY 10/19/17 Topiramate [Topamax] 100 mg PO Q12H 10/19/17 Mental Status Examination - Personal Presentation Personal Presentation: Looks older than stated age - Affect Affect: Constricted, Depressed - Motor Activity Motor Activity: Psychomotor Retardation - Reliability in Providing Information Reliability in Providing Information: Poor, due to altered mood - Speech Speech: Relevant - Mood Mood: Depressed, Anxious - Formal Thought Process Additional comments: DENIED PERCEPTUAL DISTURBANCES, NON ELICITED - Obsessions/Compulsions Obsessions: No Compulsions: No - Cognitive Functions Orientation: Person, Place, Situation Sensorium: Alert Judgement: Imparied, as evidence by: Poor judgement, Imparied, as evidence by: Lack of insight into illness - Risk Risk: Diminished functioning - Strength & Assets Inventory Strength & Assets Inventory: Life experience - Limitations Additional comments: POOR IMPULSE CONTROL DSM 5 DX - DSM 5 DSM 5 Diagnosis: BIPOLAR DISORDER MRE DEPRESSED ALCOHOL USE DISORDER - Recommended/Plan of Treatment Treatment Recommendations and Plan of Treatment: INCREASE SEROQUEL TO 200MG QHS CONTINUE WITH TRILEPTAL AND TRAZODONE GROUP AND SUPPORTIVE THERAPY
--- NOTE | 2017-10-20 16:04 | CP.PCM.CON ---
<Erick Aviles - Last Filed: 10/20/17 16:37> History of Present Illness - History of Present Illness History of Present Illness: Hospitalist Consult Note: 47 y/o M with a PMHx of HTN, DM2, obesity and HLD was admitted to psych unit for management of major depression and suicidal ideation. Pt reports feeling better but states feeling sad for the last couples of days due to family matters , fight with his daughter, his son in nursing home and the recent of his grand son. Pt started drinking beers 4 days ago due to his gloomy feelings. Pt came to ER due to suicidal ideation. No plan reported. Pt diagnosed with HTN ~10 years ago, DM2 a few years ago after psych medication increased his sugar levels. Pt is adherent to medications. Pt attends a emotional class/group assistance meeting 4x per week. Pt denies headache, dizziness, CP, SOB, abdominal pain, change in bowel movement or rash. PMD: Dr Dickson. Medical management Medications: Amlodipine, Losartan/HCTZ, Lipitor, Metformin. PMHx: HTN. DM2, HLD, obesity, transaminitis, onichomycosis. PSHx: Polypectomy/Colonoscopy due to hematochezia. FHx: Father with DM 2 and HTN. Brother and nephew with Bipolar disorder and schizophrenia. SHx: No smoking, 8 beers a day for the last few days. Pt described himself as chronic beer drinker. No recreational drugs. Review of Systems - Constitutional Constitutional: absent: Chills, Fever, Frequent Falls - EENT Eyes: absent: Decreased Night Vision, Diplopia Nose/Mouth/Throat: absent: Epistaxis, Nasal Congestion, Odynophagia, Sore Throat - Cardiovascular Cardiovascular: absent: Chest Pain, Claudication - Respiratory Respiratory: absent: Dyspnea, Hemoptysis - Gastrointestinal Gastrointestinal: absent: Abdominal Pain, Diarrhea, Nausea, Vomiting - Genitourinary Genitourinary: absent: Difficulty Urinating - Neurological Neurological: absent: Abnormal Gait, Abnormal Hearing, Abnormal Movements Past Patient History - Infectious Disease Hx of Infectious Diseases: None - Tetanus Immunizations Tetanus Immunization: Unknown - Past Medical History & Family History Past Medical History?: Yes - Past Social History Drugs: Denies - CARDIAC Hx Cardiac Disorders: Yes Hx Hypertension: Yes - PULMONARY Hx Respiratory Disorders: Yes Hx Sleep Apnea: Yes - NEUROLOGICAL Hx Neurological Disorder: No Hx Seizures: No - HEENT Hx HEENT Problems: No - RENAL Hx Chronic Kidney Disease: No - ENDOCRINE/METABOLIC Hx Endocrine Disorders: Yes Hx Diabetes Mellitus Type 2: Yes - HEMATOLOGICAL/ONCOLOGICAL Hx Blood Disorders: No Hx Human Immunodeficiency Virus (HIV): No - INTEGUMENTARY Hx Dermatological Problems: No - MUSCULOSKELETAL/RHEUMATOLOGICAL Hx Musculoskeletal Disorders: Yes - GASTROINTESTINAL Hx Gastrointestinal Disorders: Yes Hx Gastroesophageal Reflux: Yes - GENITOURINARY/GYNECOLOGICAL Hx Genitourinary Disorders: No Hx Sexually Transmitted Disorders: No - PSYCHIATRIC Hx Anxiety: Yes Hx Bipolar Disorder: Yes Hx Depression: Yes Hx Substance Use: Yes (none inpast 5yrs?) - SURGICAL HISTORY Hx Surgeries: Yes (removal of colon polyp) Other/Comment: colon polyps removed - ANESTHESIA Hx Anesthesia: Yes Hx Anesthesia Reactions: No Meds Allergies/Adverse Reactions: Allergies Allergy/AdvReac Type Severity Reaction Status Date / Time No Known Allergies Allergy Verified 01/18/17 09:08 - Medications Medications: Current Medications Acetaminophen (Tylenol 325mg Tab) 650 mg PO Q4 PRN PRN Reason: Pain, moderate (4-7) Al Hydrox/Mg Hydrox/Simethicone (Maalox Plus 30 Ml) 30 ml PO Q4 PRN PRN Reason: Dyspepsia Albuterol (Ventolin Hfa 90 Mcg/Actuation (8 G)) 2 puff IH Q6H PRN PRN Reason: Shortness of Breath Amlodipine Besylate (Norvasc) 10 mg PO DAILY [facility] Last Admin: 10/20/17 09:15 Dose: 10 mg Atorvastatin Calcium (Lipitor) 40 mg PO DAILY [facility] Diphenhydramine HCl (Benadryl) 50 mg IM Q6 PRN PRN Reason: Extrapyramidal S/S Unable PO Diphenhydramine HCl (Benadryl) 50 mg PO Q6 PRN PRN Reason: Extrapyramidal Symptoms Diphenhydramine HCl (Benadryl) 50 mg PO HS PRN PRN Reason: Sleep Folic Acid (Folic Acid) 1 mg PO DAILY [facility] Last Admin: 10/20/17 09:14 Dose: 1 mg Haloperidol (Haldol) 5 mg PO Q4 PRN PRN Reason: Agitation Haloperidol Lactate (Haldol) 5 mg IM Q4 PRN PRN Reason: Agitation, Unable to Take PO Hydrochlorothiazide (Hydrodiuril) 25 mg PO DAILY [facility] Last Admin: 10/20/17 09:15 Dose: 25 mg Lorazepam (Ativan) 2 mg IM Q4 PRN PRN Reason: Anxiety/Agitation,Unable PO Lorazepam (Ativan) 2 mg PO Q4 PRN PRN Reason: Anxiety/Agitation Losartan Potassium (Cozaar) 100 mg PO DAILY [facility] Last Admin: 10/20/17 09:16 Dose: 100 mg Magnesium Hydroxide (Milk Of Magnesia) 30 ml PO HS PRN PRN Reason: Constipation Metformin HCl (Glucophage) 1,000 mg PO BIDWM [facility] Last Admin: 10/20/17 09:14 Dose: 1,000 mg [id number] Ethyl Esters (Lovaza) 2 gm PO BID [facility] Last Admin: 10/20/17 09:15 Dose: 2 gm Oxcarbazepine (Trileptal) 150 mg PO BID [facility] Last Admin: 10/20/17 09:14 Dose: 150 mg Pantoprazole Sodium (Protonix Ec Tab) 40 mg PO DAILY [facility] Last Admin: 10/20/17 09:14 Dose: 40 mg Quetiapine Fumarate (Seroquel) 200 mg PO HS [facility] Topiramate (Topamax) 100 mg PO BID [facility] Last Admin: 10/20/17 09:14 Dose: 100 mg Trazodone HCl (Desyrel) 150 mg PO HS [facility] Last Admin: 10/19/17 22:23 Dose: 150 mg Physical Exam - Constitutional Appears: Well, No Acute Distress - Head Exam Head Exam: NORMAL INSPECTION - Eye Exam Eye Exam: EOMI, Normal appearance - ENT Exam ENT Exam: Mucous Membranes Moist - Neck Exam Neck exam: Positive for: Full Rom. Negative for: Lymphadenopathy, Meningismus - Respiratory Exam Respiratory Exam: Clear to Auscultation Bilateral, NORMAL BREATHING PATTERN - Cardiovascular Exam Cardiovascular Exam: REGULAR RHYTHM, +S1, +S2 - GI/Abdominal Exam GI & Abdominal Exam: Normal Bowel Sounds, Soft. absent: Tenderness - Extremities Exam Extremities exam: Positive for: full ROM Additional comments: Presence of bilateral vein insufficiency in bilateral lower legs. Presence of onychomycosis ob b/l foot. - Neurological Exam Neurological exam: Alert, Oriented x3 Results - Vital Signs Recent Vital Signs: Last Vital Signs Temp 98.2 F 10/20/17 12:34 Pulse 80 10/20/17 12:34 Resp 18 10/20/17 12:34 BP 147/91 H 10/20/17 12:34 Pulse Ox 98 10/19/17 20:42 - Labs Result Diagrams: 10/19/17 16:18 10/19/17 16:18 Labs: Laboratory Results - last 24 hr 10/19/17 10/19/17 10/19/17 16:08 16:18 16:18 WBC 6.2 RBC 4.56 Hgb 15.5 Hct 45.5 MCV 99.8 H MCH 34.0 H MCHC 34.1 RDW 13.4 Plt Count 204 MPV 8.9 Neut % (Auto) 46.3 L Lymph % (Auto) 38.6 [place] % (Auto) 9.8 Eos % (Auto) 4.1 H Baso % (Auto) 1.2 Neut # (Auto) 2.9 Lymph # (Auto) 2.4 [place] # (Auto) 0.6 Eos # (Auto) 0.3 Baso # (Auto) 0.1 PT INR APTT Sodium 143 Potassium 3.6 Chloride 102 Carbon Dioxide 25 Anion Gap 20 BUN 12 Creatinine 1.1 Est GFR ( Amer) > 60 Est GFR (Non-Af Amer) > 60 POC Glucose (mg/dL) 122 H Random Glucose 132 H Hemoglobin A1c Calcium 9.8 Total Bilirubin 0.6 AST 84 H ALT 94 H D Alkaline Phosphatase 95 Total Protein 7.7 Albumin 4.3 Globulin 3.4 Albumin/Globulin Ratio 1.3 Triglycerides Cholesterol LDL Cholesterol Direct HDL Cholesterol Thyroxine (T4) TSH 3rd Generation Salicylates Urine Opiates Screen Urine Methadone Screen Acetaminophen Ur Barbiturates Screen Ur Phencyclidine Scrn Ur Amphetamines Screen U Benzodiazepines Scrn U Oth Cocaine Metabols U Cannabinoids Screen Alcohol, Quantitative 186 H 10/19/17 10/19/17 10/19/17 16:18 16:18 16:18 WBC RBC Hgb Hct MCV MCH MCHC RDW Plt Count MPV Neut % (Auto) Lymph % (Auto) [place] % (Auto) Eos % (Auto) Baso % (Auto) Neut # (Auto) Lymph # (Auto) [place] # (Auto) Eos # (Auto) Baso # (Auto) PT 10.7 INR 1.0 APTT 31.4 Sodium Potassium Chloride Carbon Dioxide Anion Gap BUN Creatinine Est GFR ( Amer) Est GFR (Non-Af Amer) POC Glucose (mg/dL) Random Glucose Hemoglobin A1c Calcium Total Bilirubin AST ALT Alkaline Phosphatase Total Protein Albumin Globulin Albumin/Globulin Ratio Triglycerides Cholesterol LDL Cholesterol Direct HDL Cholesterol Thyroxine (T4) TSH 3rd Generation Salicylates < 1.0 Urine Opiates Screen Negative Urine Methadone Screen Negative Acetaminophen < 10.0 L Ur Barbiturates Screen Negative Ur Phencyclidine Scrn Negative Ur Amphetamines Screen Negative U Benzodiazepines Scrn Negative U Oth Cocaine Metabols Negative U Cannabinoids Screen Negative Alcohol, Quantitative 10/19/17 10/20/17 10/20/17 20:36 05:40 05:40 WBC RBC Hgb Hct MCV MCH MCHC RDW Plt Count MPV Neut % (Auto) Lymph % (Auto) [place] % (Auto) Eos % (Auto) Baso % (Auto) Neut # (Auto) Lymph # (Auto) [place] # (Auto) Eos # (Auto) Baso # (Auto) PT INR APTT Sodium Potassium Chloride Carbon Dioxide Anion Gap BUN Creatinine Est GFR ( Amer) Est GFR (Non-Af Amer) POC Glucose (mg/dL) 146 H Random Glucose Hemoglobin A1c 5.4 Calcium Total Bilirubin AST ALT Alkaline Phosphatase Total Protein Albumin Globulin Albumin/Globulin Ratio Triglycerides 113 D Cholesterol 165 LDL Cholesterol Direct 95 HDL Cholesterol 53 Thyroxine (T4) 5.47 L TSH 3rd Generation 2.78 Salicylates Urine Opiates Screen Urine Methadone Screen Acetaminophen Ur Barbiturates Screen Ur Phencyclidine Scrn Ur Amphetamines Screen U Benzodiazepines Scrn U Oth Cocaine Metabols U Cannabinoids Screen Alcohol, Quantitative Assessment & Plan - Assessment and Plan (Free Text) Assessment: 47 y/o M with PMHx of DM 2, HTN, HLD, bipolar disorder and obesity admitted for acute depression and suicidal ideation. Plan: 1. Bipolar disorder/Major Depression/Depressive symptoms/Insomnia - Continue psychiatry team management. 2, Diabetes Mellitus type 2 - Continue Metformin BID 1000mg - Monitor blood glucose levels. 3. Hypertension - Continue Losartan/HCTZ and Amlodipine 10 mg daily - Monitor BP 4. Hyperlipidemia - Continue Lipitor 40 mg daily 5. Transaminitis - AST/ALT 84/94 - elevated - Will f/u LFT's 6. Alcoholism - Folic acid - Ativan 2mg Q4 PRN - Date & Time Date: 10/20/17 Time: 13:00 <Mary Rob - Last Filed: 10/21/17 15:43> Meds - Medications Medications: Current Medications Acetaminophen (Tylenol 325mg Tab) 650 mg PO Q4 PRN PRN Reason: Pain, moderate (4-7) Al Hydrox/Mg Hydrox/Simethicone (Maalox Plus 30 Ml) 30 ml PO Q4 PRN PRN Reason: Dyspepsia Albuterol (Ventolin Hfa 90 Mcg/Actuation (8 G)) 2 puff IH Q6H PRN PRN Reason: Shortness of Breath Amlodipine Besylate (Norvasc) 10 mg PO DAILY [facility] Last Admin: 10/21/17 09:20 Dose: 10 mg Atorvastatin Calcium (Lipitor) 40 mg PO DAILY [facility] Last Admin: 10/21/17 09:21 Dose: 40 mg Diphenhydramine HCl (Benadryl) 50 mg IM Q6 PRN PRN Reason: Extrapyramidal S/S Unable PO Diphenhydramine HCl (Benadryl) 50 mg PO Q6 PRN PRN Reason: Extrapyramidal Symptoms Diphenhydramine HCl (Benadryl) 50 mg PO HS PRN PRN Reason: Sleep Folic Acid (Folic Acid) 1 mg PO DAILY [facility] Last Admin: 10/21/17 09:21 Dose: 1 mg Haloperidol (Haldol) 5 mg PO Q4 PRN PRN Reason: Agitation Haloperidol Lactate (Haldol) 5 mg IM Q4 PRN PRN Reason: Agitation, Unable to Take PO Hydrochlorothiazide (Hydrodiuril) 25 mg PO DAILY [facility] Last Admin: 10/21/17 09:21 Dose: 25 mg Lorazepam (Ativan) 2 mg IM Q4 PRN PRN Reason: Anxiety/Agitation,Unable PO Lorazepam (Ativan) 2 mg PO Q4 PRN PRN Reason: Anxiety/Agitation Losartan Potassium (Cozaar) 100 mg PO DAILY [facility] Last Admin: 10/21/17 09:22 Dose: 100 mg Magnesium Hydroxide (Milk Of Magnesia) 30 ml PO HS PRN PRN Reason: Constipation Metformin HCl (Glucophage) 1,000 mg PO BIDWM [facility] Last Admin: 10/21/17 09:21 Dose: 1,000 mg Nlpcm-0-Klun Ethyl Esters (Lovaza) 2 gm PO BID [facility] Last Admin: 10/21/17 09:21 Dose: 2 gm Oxcarbazepine (Trileptal) 150 mg PO BID [facility] Last Admin: 10/21/17 09:21 Dose: 150 mg Pantoprazole Sodium (Protonix Ec Tab) 40 mg PO DAILY [facility] Last Admin: 10/21/17 09:20 Dose: 40 mg Quetiapine Fumarate (Seroquel) 300 mg PO HS JUAN M Topiramate (Topamax) 100 mg PO BID [facility] Last Admin: 10/21/17 09:20 Dose: 100 mg Trazodone HCl (Desyrel) 100 mg PO HS PRN PRN Reason: Insomnia Results - Vital Signs Recent Vital Signs: Last Vital Signs Temp 97.7 F 10/21/17 09:00 Pulse 78 10/21/17 09:22 Resp 18 10/21/17 09:00 BP 153/93 H 10/21/17 09:22 Pulse Ox 98 10/19/17 20:42 - Labs Result Diagrams: 10/19/17 16:18 10/19/17 16:18 Labs: Laboratory Results - last 24 hr 10/20/17 05:40 RPR Nonreactive Attending/Attestation - Attestation I have personally seen and examined this patient.: Yes I have fully participated in the care of the patient.: Yes I have reviewed all pertinent clinical information: Yes Notes (Text): 10/21/17 15:42 Seen, examined, discussed with resident Dr. Aviles, agree with findings and plan as above.
[2017-10-21] MEDS: Pantoprazole 40 mg EC Tab PO SCH (09:20)
[2017-10-21] MEDS: Omega-3-Acid Ethyl Esters 1 GM Cap PO SCH ×2 (09:21→16:28)
--- NOTE | 2017-10-21 15:43 | PCM.PYCHPN ---
Psychiatric Progress Note - Psychiatric Progress Note Patient seen today, length of contact: pt evaluated discussed with team chart reviewed Patient Chief Complaint: I still feel very depressed for my son Problems Identified/Issues Discussed: pt evaluated, presenting with depressed mood and affect, reported his depression is because of his social situation and his son being in custodial passive suicidal ideation without a plan on the unit denied jhomicida ideations denied perceptual disturbances Medical Problems: MULTIPLE INPATIENT HOSPITALIZATION, CURRENTLY ATTENDS [facility] PRO[facility] DSM 5 Symptoms Update: bipolar disorder depressed Medication Change: Yes (increase seroquel) Medical Record Reviewed: Yes Mental Status Examination - Cognitive Function Orientation: Person, Place, Situation Attention: WNL Concentration: WNL Association: WNL Fund of Knowledge: WN Decription of patient's judgement and insights: partial insight poor judgment - Mood Mood: Depressed, Anxious - Affect Affect: Constricted, Depressed - Formal Thought Process Formal Thought Process: Circumstantial Psychotic Thoughts and Behaviors: pt denied any current perceptual disturbances, non elicited - Suicidal Ideation Suicidal Ideation: No - Homicidal Ideation Homicidal Ideation: No Goal/Treatment Plan - Goal/Treatment Plan Need for Continued Stay: Severe depression anxiety, Discharge may exacerbated symptoms Progress Toward Problem(s) and Goals/Treatment Plan: INCREASE SEROQUEL TO 300MG QHS CONTINUE WITH TRILEPTAL AND TRAZODONE GROUP AND SUPPORTIVE THERAPY Estimated Date of D/C: 10/26/17
[2017-10-21] MEDS: Insulin Lispro (humaLOG) 100 Units/ml Inj SC SCH ×2 (16:28→22:00)
[2017-10-21] MEDS: QUEtiapine 300 MG TABLET PO SCH (21:13)
[2017-10-22] MEDS: Insulin Lispro (humaLOG) 100 Units/ml Inj SC SCH ×4 (08:32→21:02)
[2017-10-22] MEDS: Omega-3-Acid Ethyl Esters 1 GM Cap PO SCH ×2 (08:42→16:40)
[2017-10-22] MEDS: Pantoprazole 40 mg EC Tab PO SCH (08:44)
--- NOTE | 2017-10-22 14:12 | PCM.PYCHPN ---
Psychiatric Progress Note - Psychiatric Progress Note Patient seen today, length of contact: pt evaluated discussed with team chart reviewed Patient Chief Complaint: I still feel depressed maybe I need more medicine Problems Identified/Issues Discussed: pt evaluated with treatment team, continues to report depressed mood , pt relates that to his back pain and also poor relation with his children, pt seekin to be on pain medications, educated pt about the risk of being on habit forming medications, encouraged pt to continue to attend groups,discussed with pt current medication regimen, pt agreed to continue with seroquel and trileptal pt denied any current suicidal or homicidal ideations denied perceptual disturbances no reported side effects of medications Medical Problems: MULTIPLE INPATIENT HOSPITALIZATION, CURRENTLY ATTENDS [facility] PROGRAM DSM 5 Symptoms Update: bipolar disorder depressed Medication Change: No Medical Record Reviewed: Yes Mental Status Examination - Cognitive Function Orientation: Person, Place, Situation Attention: WNL Concentration: WNL Association: WNL Fund of Knowledge: [facility] Decription of patient's judgement and insights: partial insight poor judgment - Mood Mood: Depressed, Anxious - Affect Affect: Constricted, Depressed - Formal Thought Process Formal Thought Process: Circumstantial Psychotic Thoughts and Behaviors: pt denied any current perceptual disturbances, non elicited - Suicidal Ideation Suicidal Ideation: No - Homicidal Ideation Homicidal Ideation: No Goal/Treatment Plan - Goal/Treatment Plan Need for Continued Stay: Severe depression anxiety, Discharge may exacerbated symptoms Progress Toward Problem(s) and Goals/Treatment Plan: INCREASE SEROQUEL TO 300MG QHS INCREASE TRILEPTAL TO 300MG BID FOR MOOD STABILIZATION AND PAIN CBT, GROUP AND SUPPORTIVE THERAPY Estimated Date of D/C: 10/26/17
[2017-10-22] MEDS: QUEtiapine 300 MG TABLET PO SCH (21:03)
[2017-10-23] MEDS: Insulin Lispro (humaLOG) 100 Units/ml Inj SC SCH ×4 (09:05→21:23)
[2017-10-23] MEDS: Pantoprazole 40 mg EC Tab PO SCH (09:07)
[2017-10-23] MEDS: Omega-3-Acid Ethyl Esters 1 GM Cap PO SCH ×2 (09:11→17:57)
--- NOTE | 2017-10-23 15:29 | PCM.PYCHPN ---
Psychiatric Progress Note - Psychiatric Progress Note Patient seen today, length of contact: pt evaluated discussed with team chart reviewed Patient Chief Complaint: was feeling depressed son is reportedly scheduled to find out the length of time he will receive related to an alleged legal issue Problems Identified/Issues Discussed: alteration in coping alteration in mood family circumstances Medical Problems: per chart Diagnostic Results: per psychiatry per medicine per nursing per social work per recreational therapy DSM 5 Symptoms Update: decreased desire to do things, increased stress/anxiety Medication Change: No Medical Record Reviewed: Yes Consults ordered or reviewed: pt being followed by hospitalist Mental Status Examination - Cognitive Function Orientation: Person, Place, Situation Attention: WNL Concentration: WNL Association: [facility] Fund of Knowledge: [facility] Decription of patient's judgement and insights: impaired - Mood Mood: Depressed, Anxious - Affect Affect: Constricted, Depressed - Formal Thought Process Formal Thought Process: Circumstantial - Suicidal Ideation Plan: concerned about future concerns about son's future loss of grandchild reportedly killed in fire within past 2 years - Homicidal Ideation Homicidal Ideation: No Goal/Treatment Plan - Goal/Treatment Plan Need for Continued Stay: Severe depression anxiety, Discharge may exacerbated symptoms Progress Toward Problem(s) and Goals/Treatment Plan: inpt milieu adjust meds per status vital signs and clinical observation per protocol and per clinical status pt being followed by hospitalist discharge planning in progress Estimated Date of D/C: 10/26/17 - Smoking Cessation Smoking Cessation Initiated: No Reason for not providing: pt defers
[2017-10-23] MEDS: QUEtiapine 300 MG TABLET PO SCH (21:21)
[2017-10-24] MEDS: Insulin Lispro (humaLOG) 100 Units/ml Inj SC SCH (06:42)
[2017-10-24] MEDS: Pantoprazole 40 mg EC Tab PO SCH (08:47)
[2017-10-24] MEDS: Omega-3-Acid Ethyl Esters 1 GM Cap PO SCH ×2 (08:47→17:53)
--- NOTE | 2017-10-24 17:51 | PCM.PYCHPN ---
Psychiatric Progress Note - Psychiatric Progress Note Patient seen today, length of contact: pt evaluated discussed with team chart reviewed Patient Chief Complaint: was feeling depressed son is reportedly scheduled to find out the length of time he will receive related to an alleged legal issue, had some nightmares within about son being incarcerated approaching sentencing, of pt's grandchild in fire Problems Identified/Issues Discussed: alteration in coping alteration in mood family circumstances Medical Problems: per chart Diagnostic Results: per psychiatry per medicine per nursing per social work per recreational therapy DSM 5 Symptoms Update: mood symptoms somewhat improved Medication Change: No Medical Record Reviewed: Yes Consults ordered or reviewed: pt being followed by hospitalist Mental Status Examination - Cognitive Function Orientation: Person, Place, Situation Attention: WNL Concentration: WNL Association: WNL Fund of Knowledge: WN Decription of patient's judgement and insights: impaired - Mood Mood: Depressed, Anxious - Affect Affect: Constricted, Depressed - Formal Thought Process Formal Thought Process: Circumstantial - Homicidal Ideation Homicidal Ideation: No Goal/Treatment Plan - Goal/Treatment Plan Need for Continued Stay: Severe depression anxiety, Discharge may exacerbated symptoms Progress Toward Problem(s) and Goals/Treatment Plan: inpt milieu adjust meds per status vital signs and clinical observation per protocol and per clinical status pt being followed by hospitalist team to consider possible clonidine for nightmares discharge planning in progress Estimated Date of D/C: 10/26/17 - Smoking Cessation Smoking Cessation Initiated: No Reason for not providing: pt defers
[2017-10-24] MEDS: QUEtiapine 300 MG TABLET PO SCH (21:12)
[2017-10-25] MEDS: Omega-3-Acid Ethyl Esters 1 GM Cap PO SCH ×2 (08:41→17:36)
[2017-10-25] MEDS: Pantoprazole 40 mg EC Tab PO SCH (08:42)
--- NOTE | 2017-10-25 20:43 | PCM.PYCHPN ---
Psychiatric Progress Note - Psychiatric Progress Note Patient seen today, length of contact: pt evaluated discussed with team chart reviewed Patient Chief Complaint: continues to feel a little down, worried about son, staff report pt is dysphoric was feeling depressed son is reportedly scheduled to find out the length of time he will receive related to an alleged legal issue, had some nightmares within about son being incarcerated approaching sentencing, of pt's grandchild in fire Problems Identified/Issues Discussed: alteration in coping alteration in mood family circumstances Medical Problems: per chart Diagnostic Results: per psychiatry per medicine per nursing per social work per recreational therapy DSM 5 Symptoms Update: dyphoria Medication Change: No Medical Record Reviewed: Yes Consults ordered or reviewed: pt being followed by hospitalist Mental Status Examination - Cognitive Function Orientation: Person, Place, Situation Attention: WNL Concentration: WNL Association: WN Fund of Knowledge: [facility] Decription of patient's judgement and insights: impaired - Mood Mood: Depressed, Anxious - Affect Affect: Constricted, Depressed - Speech Speech: Soft - Formal Thought Process Formal Thought Process: Circumstantial - Homicidal Ideation Homicidal Ideation: No Goal/Treatment Plan - Goal/Treatment Plan Need for Continued Stay: Severe depression anxiety, Discharge may exacerbated symptoms Progress Toward Problem(s) and Goals/Treatment Plan: inpt milieu adjust meds per status vital signs and clinical observation per protocol and per clinical status pt being followed by hospitalist will start lexapro for dysphoria 5mg po am decrease topamax to 50mg po am and maintain 100mg po pm (attempt gradual down taper pt receiving trileptal) discharge planning in progress Estimated Date of D/C: 10/26/17 - Smoking Cessation Smoking Cessation Initiated: No Reason for not providing: pt defers
[2017-10-25] MEDS: QUEtiapine 300 MG TABLET PO SCH (21:06)
[2017-10-26] MEDS: Pantoprazole 40 mg EC Tab PO SCH (08:51)
[2017-10-26] MEDS: Omega-3-Acid Ethyl Esters 1 GM Cap PO SCH ×2 (08:51→17:10)
[2017-10-26 17:01] VITALS: RESP 20
--- NOTE | 2017-10-26 17:54 | PCM.PYCHPN ---
Psychiatric Progress Note - Psychiatric Progress Note Patient seen today, length of contact: pt evaluated discussed with team chart reviewed Patient Chief Complaint: reports feeling better, calmer sleeping improving , feels rested. does admit to having dream periodically both ones during which he feels calm and others during which he feels nervous. pt is seen in social area, interacting with peers , reportedly attending most groups, rx adherent without side effects medications reportedly. continues to feel a little down, worried about son, staff report pt is dysphoric was feeling depressed son is reportedly scheduled to find out the length of time he will receive related to an alleged legal issue, had some nightmares within about son being incarcerated approaching sentencing, of pt's grandchild in fire Problems Identified/Issues Discussed: alteration in coping alteration in mood family circumstances Medical Problems: per chart Diagnostic Results: per psychiatry per medicine per nursing per social work per recreational therapy DSM 5 Symptoms Update: improving mood, improving sleep, Medication Change: No Medical Record Reviewed: Yes Consults ordered or reviewed: pt being followed by hospitalist Mental Status Examination - Cognitive Function Orientation: Person, Place, Situation Attention: WNL Concentration: WNL Association: WNL Fund of Knowledge: WN Decription of patient's judgement and insights: impaired - Mood Mood: Depressed, Anxious - Affect Affect: Constricted, Depressed - Speech Speech: Soft - Formal Thought Process Formal Thought Process: Circumstantial - Suicidal Ideation Suicidal Ideation: No - Homicidal Ideation Homicidal Ideation: No Goal/Treatment Plan - Goal/Treatment Plan Need for Continued Stay: Severe depression anxiety, Discharge may exacerbated symptoms Progress Toward Problem(s) and Goals/Treatment Plan: inpt milieu adjust meds per status vital signs and clinical observation per protocol and per clinical status pt being followed by hospitalist decrease topamax to 50mg po am and maintain 50 po pm (attempt gradual down taper pt receiving trileptal) discharge planning in progress Estimated Date of D/C: 10/26/17 - Smoking Cessation Smoking Cessation Initiated: No
[2017-10-26] MEDS: QUEtiapine 300 MG TABLET PO SCH (21:57)
[2017-10-27 09:01] VITALS: BP 122/82; TEMP 97.5
[2017-10-27] MEDS: Omega-3-Acid Ethyl Esters 1 GM Cap PO SCH (09:28)
[2017-10-27] MEDS: Pantoprazole 40 mg EC Tab PO SCH (09:29)
[2017-10-27 09:31] VITALS: PULSE 95
--- NOTE | 2017-10-27 09:55 | PCM.PYCHDC ---
Mental Status Examination - Mental Status Examination Orientation: Person, Place, Situation, Time Memory: Intact Mood: Neutral Affect: Broad Speech: Appropriate Attention: WNL Concentration: WNL Association: WNL Fund of Knowledge: WNL Formal Thought Process: No Impairment Description of patient's judgement and insight: Good I/J Psychotic Thoughts and Behaviors: No AH/VH/paranoia/delusions Suicidal Ideation: No Current Homicidal Ideation?: No Discharge Summary - Discharge Note Reason for Hospitalization: "As per initial HPI: Patient is a 47 y/o male with past history of Bipolar Disorder with manic episodes and anger outbust in the past. Patient has been feeling increasingly depressed due to strained relation with his daughter, his son in long term and the recent of his grand son pt has been using increasing amounts of alcohol , and on day of evaluation was asked by his mother to leave the house he became increasingly depressed and started having suicidal ideations, pt presented to the ER requesting help reported feeling hopeless and helpless, poor slepp , low energy denied current S/HI" Consultations:: List each consultation separately and include: 1. Reason for request. 2. Findings. 3. Follow-up Consultations: Medicine consult Summary of Hospital Course include:: 1. Description of specific treatment plan utilized for patients during their course of treatmen. 2. Summarize the time- course for resolution of acute symptoms and/or regressed behaviors. 3. Describe issues identified and worked on during hospitalization. 4. Describe medication utilized. 5. Describe medical problems identified and treated. 6. Reassessment of suicide risk Summary of Hospital Course: Patient was admitted to the psychiatry unit. Individual and group therapy were provided. Patient was stabilized on Lexapro, Trileptal, Seroquel, Trazodone and is being tapered of Topamax. His mood has improved and he does not report any current psychotic symptoms. He is psychiatrically stable for discharge with outpatient follow-up. - Final Diagnosis (DSM 5) Condition upon Discharge: STABLE DSM 5: Bipolar Disorder; Alcohol Use Disorder Disposition: HOME/ ROUTINE Follow-up Treatment Plan: Discharge to home w/ outpatient follow-up Prescriptions/Medication Reconciliation: Escitalopram [Lexapro] 5 mg PO DAILY #30 tab OXcarbazepine [Trileptal] 300 mg PO BID #60 tab QUEtiapine [SEROquel] 300 mg PO HS #30 tab Topiramate [Topamax] 50 mg PO DAILY #14 tab traZODone [Desyrel] 100 mg PO HS PRN #30 tab PRN Reason: Insomnia - Smoking Cessation Smoking Cessation Medication prescribed: No Reason for not providing: Not indicated - Antipsychotic Medications Pt discharged on 2 or more routine antipsychotic medications: No
== END 2017-10-27 11:00 | disposition home or self-care (01) | DRG 430 ==
LOC: H.ER 15:17 → H.ERHOLD 18:01 → H.PSYCH 21:11
PROVIDERS: ADMIT Psychiatry & Neurology Psychiatry; ATTEND Psychiatry & Neurology Psychiatry
PROC: GZHZZZZ Group Psychotherapy (ICD-10-PCS; principal; 2017-10-19)
PROC: HZ52ZZZ Individual Psychotherapy for Substance Abuse Treatment, Cognitive-Behavioral (ICD-10-PCS; 2017-10-19)
PROC: HZ59ZZZ Individual Psychotherapy for Substance Abuse Treatment, Supportive (ICD-10-PCS; 2017-10-19)
DX: F31.9 Bipolar disorder, unspecified (principal); R45.851 Suicidal ideations; Z68.41 Body mass index [BMI] 40.0-44.9, adult; E11.9 Type 2 diabetes mellitus without complications; F10.129 Alcohol abuse with intoxication, unspecified; Y90.6 Blood alcohol level of 120-199 mg/100 ml; I10 Essential (primary) hypertension; E78.5 Hyperlipidemia, unspecified; J45.909 Unspecified asthma, uncomplicated; K21.9 Gastro-esophageal reflux disease without esophagitis; E78.00 Pure hypercholesterolemia, unspecified; M06.9 Rheumatoid arthritis, unspecified; E66.9 Obesity, unspecified; M19.90 Unspecified osteoarthritis, unspecified site; R74.0 Nonspecific elevation of levels of transaminase and lactic acid dehydrogenase [LDH]

== ENCOUNTER 2018-07-01 04:59 | Emergency (ER) | payer MEDICAID ==
[2018-07-01 05:00] VITALS: BMI 43.8
[2018-07-01 05:13] VITALS: O2SAT 100
[2018-07-01] MEDS ORDERED: Sodium Chloride 0.9% 1,000 ML IV STA ×2 (05:42→11:07)
[2018-07-01 06:14] LABS: BASO # 0.1 K/uL (0.0-0.2); BASO % 1.4 % (0.0-2.0); EOS # 0.3 K/uL (0.0-0.7); EOS % 3.5 % (0.0-4.0); HEMOGLOBIN 16.6 g/dL (12.0-18.0); LYMPH # 2.1 K/uL (1.0-4.3); LYMPH % 26.1 % (20.0-40.0); MEAN CELL VOLUME 102.5 fl (80.0-94.0); MEAN CORPUSCULAR HGB CONC 34.1 g/dL (33.0-37.0); MEAN PLATELET VOLUME 9.3 fl (7.2-11.7); MONO # 0.9 K/uL (0.0-0.8); MONO % 11.4 % (0.0-10.0); NEUT # 4.6 K/uL (1.8-7.0); NEUT % 57.6 % (50.0-75.0); NRBC % 0.1 % (0.0-0.0); RBC 4.75 Mil/uL (4.40-5.90); RED CELL DISTRIBUTION WIDTH 13.6 % (11.5-14.5)
[2018-07-01 06:24] LABS: ALB/GLOB RATIO 1.1 (1.0-2.1); CALCIUM 9.3 mg/dL (8.4-10.2)
--- NOTE | 2018-07-01 06:55 | ED PDOC ---
HPI: Abdomen Time Seen by Provider: 07/01/18 05:21 Chief Complaint (Nursing): Abdominal Pain Chief Complaint (Provider): Abdominal Pain History Per: Patient History/Exam Limitations: no limitations Onset/Duration Of Symptoms: Intermittent Episodes, Other (2 weeks) Outside of [place] travel?: No Current Symptoms Are (Timing): Still Present Severity: Mild Pain Scale Rating Of: 2 Location Of Pain/Discomfort: Diffuse Quality Of Discomfort: Cramping Associated Symptoms: Nausea, Diarrhea. denies: Fever Last Bowel Movement: Today Past Medical History Reviewed: Historical Data, Nursing Documentation, Vital Signs Vital Signs: Last Vital Signs Temp 97.5 F L 07/01/18 05:08 Pulse 101 H 07/01/18 05:08 Resp 17 07/01/18 05:08 BP 105/73 07/01/18 05:08 Pulse Ox 100 07/01/18 05:08 - Medical History PMH: Anxiety, Arthritis, Asthma, Back Problems (herniated disc), Bipolar Di sorder, Depression, Diabetes (borderline type II), GERD, HTN, Hypercholesterolemia, Rheumatoid Arthritis, Schizophrenia, Sleep Apnea Denies: Hepatitis, HIV, Chronic Kidney Disease, Seizures, Sexually Transmitted Disease - Surgical History Surgical History: No Surg Hx - Family History Family History: States: Unknown Family Hx - Immunization History Hx Tetanus Toxoid Vaccination: No Hx Influenza Vaccination: No Hx Pneumococcal Vaccination: No - Home Medications Home Medications: Ambulatory Orders Medication Instructions Recorded RX: Losartan/Hydrochlorothiazide 1 tab PO DAILY 03/27/17 [Losartan-Hctz 100-25 mg Tab] RX: Atorvastatin [Lipitor] 40 mg PO HS tab 04/05/17 RX: Folic Acid 1 mg PO DAILY tab 04/05/17 RX: MetFORMIN [glucoPHAGE] 1,000 mg PO BIDWM tab 04/05/17 RX: amLODIPine [Norvasc] 10 mg PO DAILY tab 04/05/17 RX: Albuterol HFA [Ventolin HFA 90 2 puff IH Q6H PRN 10/19/17 mcg/actuation (8 g)] RX: [place]-3 Fatty Acids [[place]-3] 2 cap PO BID 10/19/17 RX: Omeprazole 40 mg PO DAILY 10/19/17 RX: Escitalopram [Lexapro] 5 mg PO DAILY #30 tab 10/27/17 RX: OXcarbazepine [Trileptal] 300 mg PO BID #60 tab 10/27/17 RX: QUEtiapine [SEROquel] 300 mg PO HS #30 tab 10/27/17 RX: Topiramate [Topamax] 50 mg PO DAILY #14 tab 10/27/17 RX: traZODone [Desyrel] 100 mg PO HS PRN #30 tab 10/27/17 Dicyclomine [Bentyl] 10 mg PO TID #12 cap 07/01/18 - Allergies Allergies/Adverse Reactions: Allergies Allergy/AdvReac Type Severity Reaction Status Date / Time No Known Allergies Allergy Verified 07/01/18 05:13 Review of Systems ROS Statement: Except As Marked, All Systems Reviewed And Found Negative Physical Exam - Reviewed Nursing Documentation Reviewed: Yes Vital Signs Reviewed: Yes - Physical Exam Appears: Positive for: Non-toxic, No Acute Distress Head Exam: Positive for: ATRAUMATIC Skin: Positive for: Warm, Dry Eye Exam: Positive for: EOMI ENT: Positive for: Normal ENT Inspection Cardiovascular/Chest: Positive for: Regular Rate, Rhythm Respiratory: Positive for: Normal Breath Sounds Gastrointestinal/Abdominal: Positive for: Normal Exam, Soft. Negative for: Tenderness, Distended Extremity: Positive for: Normal ROM Neurologic/Psych: Positive for: Alert, Oriented - Laboratory Results Result Diagrams: 07/01/18 06:11 07/01/18 10:42 - ECG O2 Sat by Pulse Oximetry: 100 Medical Decision Making Medical Decision Making: Impression: diarrhea, abdominal pain Diff include infections diarrhea, colitis, Plan Labs CTabdomen UA reassess Disposition - Clinical Impression Clinical Impression: Abdominal discomfort, Diarrhea, Renal insufficiency - Patient ED Disposition Is Patient to be Admitted: Transfer of Care - Disposition Referrals: Brain Childs MD [Staff Provider] - Cliff Childs MD [Staff Provider] - Vidal Rendon MD, PhD [Staff Provider] - Flavio Dickson MD [Family Provider] - Disposition: Transfer of Care Disposition Time: 07:00 Condition: STABLE Additional Instructions: Followup with GI doctor and your PMD for further testing. See PMD within next 2 days or kidney doctor for repeat testing of your kidney function. Drink plenty of water. Recommend surveillance repeat imaging in 3-6 months for cyst on kidney. Take medications as directed, return to ER for any worse or new symptoms. Prescriptions: Dicyclomine [Bentyl] 10 mg PO TID #12 cap Instructions: Diarrhea in Adolescents and Adults, Kidney Failure (DC), Acute Abdomen (Belly Pain), Adult (DC) Forms: [employer] (Setswana) Patient Signed Over To: Vidal Christina III
--- NOTE | 2018-07-01 07:33 | ED PDOC ---
- Laboratory Results Result Diagrams: 07/01/18 06:11 07/01/18 10:42 - ECG O2 Sat by Pulse Oximetry: 100 Medical Decision Making Medical Decision Makinam received pending CT abd pelv, has increased renal function, receiving IVF 0935 Abdome/Pelvis CT FINDINGS: LOWER THORAX: Unremarkable. LIVER: Unremarkable. No gross lesion or ductal dilatation. GALLBLADDER AND BILE DUCTS: Unremarkable. PANCREAS: Unremarkable. No gross lesion or ductal dilatation. SPLEEN: Unremarkable. ADRENALS: Unremarkable. No mass. KIDNEYS AND URETERS: No obstructive uropathy bilaterally or radiodense urolithiasis. There is a small lucency at the upper pole left kidney measuring 1.8 x 1.9 cm and 3 Hounsfield units compatible with a cyst but with posterior mural calcification identified. VASCULATURE: Nonaneurysmal abdominal aortic calcific atherosclerotic changes are identified. No aortic atherosclerotic calcification or mural plaque present. BOWEL: The stomach is mildly distended with retained fluid and gas. No apparent bowel obstruction throughout. A moderate amount retained fecal material cyst identified at the proximal large bowel with a minimal amount otherwise identified. Limited sigmoid diverticulosis without diverticulitis. APPENDIX: Normal-appearing retrocecal appendix. PERITONEUM: Unremarkable. No free fluid. No free air. LYMPH NODES: Unremarkable. No enlarged lymph nodes. BLADDER: Unremarkable. REPRODUCTIVE: Unremarkable. BONES: L3-4 and L4-5 spondylosis and degenerative grade 1 anterolisthesis L4-5. OTHER FINDINGS: None. IMPRESSION: 1. No bowel obstruction, mesenteric edema, ascites or free intra peritoneal gas collection. 2. 1.9 cm complex cyst upper pole left kidney. 3. Incidental L4-5 spondylolisthesis grade 1. BMP repeated w small improvement kidney function s/p IVF. Additional 1L NS initiated 1120aD/w C [facility], patient can be seen 1-2 days for followup and repeat labs, also referred to nephrology and GI for outpatient workup On re-eval not vomiting, no further diarrhea here, drinking/eating well. Explained all results and important need for followup, avoid NSAIDs, fluid intake, avoid dairy for now, indications for return to ER. Disposition - Clinical Impression Clinical Impression: Abdominal discomfort, Diarrhea, Renal insufficiency - POA Present On Arrival: None - Disposition Referrals: Brain Childs MD [Staff Provider] - Cliff Childs MD [Staff Provider] - Vidal Rendon MD, PhD [Staff Provider] - Flavio Dickson MD [Family Provider] - Disposition: Routine/Home Disposition Time: 10:06 Condition: STABLE Additional Instructions: Followup with GI doctor and your PMD for further testing. See PMD within next 2 days or kidney doctor for repeat testing of your kidney function. Drink plenty of water. Recommend surveillance repeat imaging in 3-6 months for cyst on kidney. Take medications as directed, return to ER for any worse or new symptoms. Prescriptions: Dicyclomine [Bentyl] 10 mg PO TID #12 cap Instructions: Diarrhea in Adolescents and Adults, Kidney Failure (DC), Acute Abdomen (Belly Pain), Adult (DC) Forms: [employer] (Serbian)
--- NOTE | 2018-07-01 09:39 | CT ---
Date of service: 07/01/2018 PROCEDURE: CT Abdomen and Pelvis without intravenous contrast HISTORY: diarrhea cramps COMPARISON: None. TECHNIQUE: Helical CT of the abdomen and pelvis was performed without oral or intravenous contrast as per referring physician request. Coronal and sagittal reformats were generated. Contrast dose: None Radiation dose: Total exam DLP = 1028.3 mGy-cm. This CT exam was performed using one or more of the following dose reduction techniques: Automated exposure control, adjustment of the mA and/or kV according to patient size, and/or use of iterative reconstruction technique. FINDINGS: LOWER THORAX: Unremarkable. LIVER: Unremarkable. No gross lesion or ductal dilatation. GALLBLADDER AND BILE DUCTS: Unremarkable. PANCREAS: Unremarkable. No gross lesion or ductal dilatation. SPLEEN: Unremarkable. ADRENALS: Unremarkable. No mass. KIDNEYS AND URETERS: No obstructive uropathy bilaterally or radiodense urolithiasis. There is a small lucency at the upper pole left kidney measuring 1.8 x 1.9 cm and 3 Hounsfield units compatible with a cyst but with posterior mural calcification identified. VASCULATURE: Nonaneurysmal abdominal aortic calcific atherosclerotic changes are identified. No aortic atherosclerotic calcification or mural plaque present. BOWEL: The stomach is mildly distended with retained fluid and gas. No apparent bowel obstruction throughout. A moderate amount retained fecal material cyst identified at the proximal large bowel with a minimal amount otherwise identified. Limited sigmoid diverticulosis without diverticulitis. APPENDIX: Normal-appearing retrocecal appendix. PERITONEUM: Unremarkable. No free fluid. No free air. LYMPH NODES: Unremarkable. No enlarged lymph nodes. BLADDER: Unremarkable. REPRODUCTIVE: Unremarkable. BONES: L3-4 and L4-5 spondylosis and degenerative grade 1 anterolisthesis L4-5. OTHER FINDINGS: None. IMPRESSION: 1. No bowel obstruction, mesenteric edema, ascites or free intra peritoneal gas collection. 2. 1.9 cm complex cyst upper pole left kidney. 3. Incidental L4-5 spondylolisthesis grade 1.
[2018-07-01 11:01] LABS: CALCIUM 9.2 mg/dL (8.4-10.2)
[2018-07-01 12:58] VITALS: BP 121/78; PULSE 66; RESP 18; TEMP 97.7
== END 2018-07-01 13:02 | disposition home or self-care (01) ==
LOC: H.ER 04:59
DX: R10.9 Unspecified abdominal pain (principal); R19.7 Diarrhea, unspecified; N18.9 Chronic kidney disease, unspecified; E78.00 Pure hypercholesterolemia, unspecified; I10 Essential (primary) hypertension; Z79.84 Long term (current) use of oral hypoglycemic drugs
CPT/HCPCS: 74176; 80048; 80053; 82550; 83690; 85025; 96361; 96374; 96375; 99285; J2405; J7030

== ENCOUNTER 2018-09-15 08:09 | Emergency (ER) | payer MEDICAID ==
[2018-09-15 08:10] VITALS: BMI 43.8
[2018-09-15 08:14] VITALS: BP 154/89; PULSE 114; TEMP 98.1
--- NOTE | 2018-09-15 09:16 | ED PDOC ---
HPI: Skin/Bite Injury Time Seen by Provider: 09/15/18 09:00 Chief Complaint (Nursing): Abnormal Skin Integrity Chief Complaint (Provider): Abnormal Skin Integrity History Per: Patient History/Exam Limitations: no limitations Onset/Duration Of Symptoms: Days Current Symptoms Are (Timing): Still Present Quality Of Symptoms: Itching Additional Complaint(s): Corey Cordero is a 48 year old morbidly obese male with a past medical history of diabetes and asthma who is presenting to the ED with complaints of itchy rash to localize areas of lower legs ongoing for one week. Patient states that he has had rashes before that improved with over the counter anti- inflammatory drugs, but this time rash is persistent. Patient denies any fevers, dizziness, changes in urination, or known inciting factors of rash. He also admits that he has had a cough for several days but denies any difficulty breathing. He showed provider a handwritten note of the medication hyrocene which he is taking for rash. PMD: none provided Past Medical History Reviewed: Historical Data, Nursing Documentation, Vital Signs Vital Signs: Last Vital Signs Temp 98.1 F 09/15/18 08:13 Pulse 114 H 09/15/18 08:13 Resp 20 09/15/18 08:13 BP 154/89 H 09/15/18 08:13 Pulse Ox 96 09/15/18 08:13 - Medical History PMH: Anxiety, Arthritis, Asthma, Back Problems (herniated disc), Bipolar Disorder, Depression, Diabetes (borderline type II), GERD, HTN, Hypercholesterolemia, Rheumatoid Arthritis, Schizophrenia, Sleep Apnea Denies: Hepatitis, HIV, Chronic Kidney Disease, Seizures, Sexually Transmitted Disease - Surgical History Surgical History: No Surg Hx - Family History Family History: States: Unknown Family Hx - Social History Current smoker - smoking cessation education provided: No Alcohol: None Drugs: Denies - Immunization History Hx Tetanus Toxoid Vaccination: No Hx Influenza Vaccination: No Hx Pneumococcal Vaccination: No - Home Medications Home Medications: Ambulatory Orders Medication Instructions Recorded Losartan/Hydrochlorothiazide 1 tab PO DAILY 03/27/17 [Losartan-Hctz 100-25 mg Tab] Atorvastatin [Lipitor] 40 mg PO HS tab 04/05/17 Folic Acid 1 mg PO DAILY tab 04/05/17 MetFORMIN [glucoPHAGE] 1,000 mg PO BIDWM tab 04/05/17 amLODIPine [Norvasc] 10 mg PO DAILY tab 04/05/17 Albuterol HFA [Ventolin HFA 90 2 puff IH Q6H PRN 10/19/17 mcg/actuation (8 g)] Kamuel[place]-3 Fatty Acids [[place]-3] 2 cap PO BID 10/19/17 Omeprazole 40 mg PO DAILY 10/19/17 Escitalopram [Lexapro] 5 mg PO DAILY #30 tab 10/27/17 OXcarbazepine [Trileptal] 300 mg PO BID #60 tab 10/27/17 QUEtiapine [SEROquel] 300 mg PO HS #30 tab 10/27/17 Topiramate [Topamax] 50 mg PO DAILY #14 tab 10/27/17 traZODone [Desyrel] 100 mg PO HS PRN #30 tab 10/27/17 Dicyclomine [Bentyl] 10 mg PO TID #12 cap 07/01/18 - Allergies Allergies/Adverse Reactions: Allergies Allergy/AdvReac Type Severity Reaction Status Date / Time No Known Allergies Allergy Verified 07/01/18 05:13 Review of Systems ROS Statement: Except As Marked, All Systems Reviewed And Found Negative Constitutional: Negative for: Fever, Malaise Cardiovascular: Negative for: Chest Pain Respiratory: Positive for: Cough Gastrointestinal: Negative for: Vomiting, Abdominal Pain, Diarrhea Skin: Positive for: Rash (and itching ) Neurological: Negative for: Headache Physical Exam - Reviewed Nursing Documentation Reviewed: Yes Vital Signs Reviewed: Yes - Physical Exam Appears: Positive for: Well, Non-toxic, No Acute Distress (morbidly obese ) Head Exam: Positive for: ATRAUMATIC, NORMAL INSPECTION, NORMOCEPHALIC Skin: Positive for: Warm, Rash (2 localized areas of dermatitis, appearing patchy non- urticarial erythema to right calf and left thigh ) Eye Exam: Positive for: Normal appearance ENT: Positive for: Normal ENT Inspection Cardiovascular/Chest: Positive for: Regular Rate, Rhythm. Negative for: Murmur Respiratory: Positive for: Normal Breath Sounds. Negative for: Respiratory Distress Gastrointestinal/Abdominal: Positive for: Normal Exam, Soft. Negative for: Tenderness Extremity: Positive for: Normal ROM. Negative for: Deformity, Swelling Neurologic/Psych: Positive for: Alert, Oriented. Negative for: Motor/Sensory Deficits - ECG O2 Sat by Pulse Oximetry: 96 (RA) Pulse Ox Interpretation: Normal Medical Decision Making Medical Decision Making: Time: 8:45 A/P: --Going to upgrade cream to stronger steroid and check glucose level --follow up with PMD --recommend good skin moisturizer Scribe Attestation: Documented by Fany Rivera, acting as a scribe for Vidal Christina DO. Provider Scribe Attestation: All medical record entries made by the Scribe were at my direction and personally dictated by me. I have reviewed the chart and agree that the record accurately reflects my personal performance of the history, physical exam, medical decision making, and the department course for this patient. I have also personally directed, reviewed, and agree with the discharge instructions and disposition. Disposition - Clinical Impression Clinical Impression: Rash - Disposition Condition: STABLE Instructions: Skin Rash (DC) Forms: [employer] (Macanese)
[2018-09-15 11:10] VITALS: RESP 18; O2SAT 100
== END 2018-09-15 11:10 | disposition home or self-care (01) ==
LOC: H.ER 08:09
DX: R21 Rash and other nonspecific skin eruption (principal); E11.9 Type 2 diabetes mellitus without complications; E66.01 Morbid (severe) obesity due to excess calories; E78.00 Pure hypercholesterolemia, unspecified; F20.9 Schizophrenia, unspecified; I10 Essential (primary) hypertension; Z79.84 Long term (current) use of oral hypoglycemic drugs

== ENCOUNTER 2019-01-02 15:34 | Inpatient (IN) | payer MEDICAID ==
[2019-01-02 15:34] VITALS: BMI 43.8
[2019-01-02 16:12] VITALS: O2SAT 100
[2019-01-02 17:32] LABS: URINE BILIRUBIN NEGATIVE (NEGATIVE); URINE BLOOD NEGATIVE (NEGATIVE); URINE CLARITY CLEAR (Clear); URINE COLOR COLORLESS (YELLOW); URINE GLUCOSE (UA) NEG (NEGATIVE); URINE LEUKOCYTE ESTERASE NEG Leu/uL (Negative); URINE PROTEIN NEGATIVE (NEGATIVE); URINE UROBILINOGEN 0.2-1.0 mg/dL (0.2-1.0)
[2019-01-02 17:49] LABS: BARBITURATES, UR NEGATIVE (NEGATIVE); BENZODIAZEPINES, UR NEGATIVE (NEGATIVE); OPIATES, UR NEGATIVE (NEGATIVE); PHENCYCLIDINE, UR NEGATIVE (NEGATIVE)
--- NOTE | 2019-01-02 17:51 | RAD ---
Date of service: 01/02/2019 HISTORY: med clearance COMPARISON: 10/19/2017. TECHNIQUE: Chest PA and lateral views FINDINGS: LUNGS: No active pulmonary disease. PLEURA: No significant pleural effusion identified. No pneumothorax apparent. CARDIOVASCULAR: No aortic atherosclerotic calcification present. Normal cardiac size. No pulmonary vascular congestion. OSSEOUS STRUCTURES: No significant abnormalities. VISUALIZED UPPER ABDOMEN: Normal. OTHER FINDINGS: None. IMPRESSION: No active disease. No significant interval change compared to the prior examination(s).
--- NOTE | 2019-01-02 18:04 | ED PDOC ---
HPI: Psych/Substance Abuse Time Seen by Provider: 01/02/19 16:09 Chief Complaint (Nursing): Psychiatric Evaluation Chief Complaint (Provider): Psychiatric Evaluation History Per: Patient History/Exam Limitations: no limitations Onset/Duration Of Symptoms: Days Current Symptoms Are (Timing): Still Present Suicide/Self Injury Attempted (Context): None Modifying Factor(s): None Associated Symptoms: Depression, Suicidal Thoughts. denies: Suicidal Plan Additional Complaint(s): 48 year old male with depression and bipolar disorder presents to the ED for psychiatric evaluation. Patient reports he has been feeling more depressed over the last two days and reports of thoughts of hurting self, but he has no direct plans. He is compliant with his medication. Pt. visited his son in prison yesterday and felt more depressed afterwards. Otherwise, he has no other complaints in the ED. Pt. reports he had a couple of beers earlier today. Past Medical History Reviewed: Historical Data, Nursing Documentation, Vital Signs Vital Signs: Last Vital Signs Temp 97.9 F 01/02/19 16:09 Pulse 73 01/02/19 16:09 Resp 18 01/02/19 16:09 BP 136/95 H 01/02/19 16:09 Pulse Ox 100 01/02/19 16:09 - Medical History PMH: Anxiety, Arthritis, Asthma, Back Problems (herniated disc), Bipolar Disorder, Depression, Diabetes (borderline type II), GERD, HTN, Hy percholesterolemia, Rheumatoid Arthritis, Schizophrenia, Sleep Apnea Denies: Hepatitis, HIV, Chronic Kidney Disease, Seizures, Sexually Transmitted Disease - Family History Family History: States: Unknown Family Hx - Immunization History Hx Tetanus Toxoid Vaccination: No Hx Influenza Vaccination: No Hx Pneumococcal Vaccination: No - Home Medications Home Medications: Ambulatory Orders Medication Instructions Recorded Losartan/Hydrochlorothiazide 1 tab PO DAILY 03/27/17 [Losartan-Hctz 100-25 mg Tab] Atorvastatin [Lipitor] 40 mg PO HS tab 04/05/17 Folic Acid 1 mg PO DAILY tab 04/05/17 MetFORMIN [glucoPHAGE] 1,000 mg PO BIDWM tab 04/05/17 amLODIPine [Norvasc] 10 mg PO DAILY tab 04/05/17 Albuterol HFA [Ventolin HFA 90 2 puff IH Q6H PRN 10/19/17 mcg/actuation (8 g)] [place]-3 Fatty Acids [[place]-3] 2 cap PO BID 10/19/17 Omeprazole 40 mg PO DAILY 10/19/17 Escitalopram [Lexapro] 5 mg PO DAILY #30 tab 10/27/17 OXcarbazepine [Trileptal] 300 mg PO BID #60 tab 10/27/17 QUEtiapine [SEROquel] 300 mg PO HS #30 tab 10/27/17 Topiramate [Topamax] 50 mg PO DAILY #14 tab 10/27/17 traZODone [Desyrel] 100 mg PO HS PRN #30 tab 10/27/17 Dicyclomine [Bentyl] 10 mg PO TID #12 cap 07/01/18 Hydrocortisone 2.5% 1 apful TP BID #60 gm 09/15/18 - Allergies Allergies/Adverse Reactions: Allergies Allergy/AdvReac Type Severity Reaction Status Date / Time No Known Allergies Allergy Verified 01/02/19 16:09 Review of Systems ROS Statement: Except As Marked, All Systems Reviewed And Found Negative Constitutional: Negative for: Fever Cardiovascular: Negative for: Chest Pain Respiratory: Negative for: Cough, Shortness of Breath Gastrointestinal: Negative for: Nausea, Vomiting, Abdominal Pain, Diarrhea Neurological: Negative for: Weakness, Numbness Psych: Positive for: Depression, Suicidal ideation. Negative for: Other (homicidal ideation ) Physical Exam - Reviewed Nursing Documentation Reviewed: Yes Vital Signs Reviewed: Yes - Physical Exam Appears: Positive for: Non-toxic, No Acute Distress Head Exam: Positive for: ATRAUMATIC, NORMAL INSPECTION, NORMOCEPHALIC Skin: Positive for: Normal Color, Warm, Dry. Negative for: Rash Eye Exam: Positive for: EOMI, Normal appearance, PERRL ENT: Positive for: Normal ENT Inspection Neck: Positive for: Normal, Painless ROM, Supple. Negative for: Decreased ROM Cardiovascular/Chest: Positive for: Regular Rate, Rhythm. Negative for: Murmur Respiratory: Positive for: Normal Breath Sounds. Negative for: Respiratory Distress Gastrointestinal/Abdominal: Positive for: Normal Exam, Soft. Negative for: Tenderness Back: Positive for: Normal Inspection Extremity: Positive for: Normal ROM. Negative for: Tenderness, Pedal Edema, Deformity Neurological/Psych: Positive for: Awake, Alert, Normal Tone, Oriented (x3) - Laboratory Results Result Diagrams: 01/02/19 18:11 01/02/19 18:11 Lab Results: Urine Color Colorless (YELLOW) 01/02/19 17:23 Urine Clarity Clear (Clear) 01/02/19 17:23 Urine pH 6.0 (5.0-8.0) 01/02/19 17:23 Ur Specific [place] < 1.005 (1.003-1.030) 01/02/19 17:23 Urine Protein Negative mg/dL (NEGATIVE) 01/02/19 17:23 Urine Glucose (UA) Neg mg/dL (NEGATIVE) 01/02/19 17:23 Urine Ketones Negative mg/dL (NEGATIVE) 01/02/19 17:23 Urine Blood Negative (NEGATIVE) 01/02/19 17:23 Urine Nitrate Negative (NEGATIVE) 01/02/19 17:23 Urine Bilirubin Negative (NEGATIVE) 01/02/19 17:23 Urine Urobilinogen 0.2-1.0 mg/dL (0.2-1.0) 01/02/19 17:23 Ur Leukocyte Esterase Neg Pedro/uL (Negative) 01/02/19 17:23 - ECG O2 Sat by Pulse Oximetry: 100 (RA) Pulse Ox Interpretation: Normal Medical Decision Making Medical Decision Making: Time: 1638 Plan: EKG Alcohol serum CMP Drug screen CBC w/ differential UA CXR Crisis evaluation Revaluation 174 CXR HISTORY: med clearance COMPARISON: 10/19/2017. TECHNIQUE: Chest PA and lateral views FINDINGS: LUNGS: No active pulmonary disease. PLEURA: No significant pleural effusion identified. No pneumothorax apparent. CARDIOVASCULAR: No aortic atherosclerotic calcification present. Normal cardiac size. No pulmonary vascular congestion. OSSEOUS STRUCTURES: No significant abnormalities. VISUALIZED UPPER ABDOMEN: Normal. OTHER FINDINGS: None. IMPRESSION: No active disease. No significant interval change compared to the prior examination(s). 180 As per crisis evaluation, patient will be admitted for major depressive disorder under the care of Dr. Chamberlain. Pt. agreeable to plan, remained stable in ED. Blood alcohol noted, drawn at 6:11pm. Pt. reconsented for admission at 8pm. Pt. is clinically sober. Scribe Attestation: Documented by Nicolette Shaikh, acting as a scribe for Sabine Hernandez PA-C. Provider Scribe Attestation: All medical record entries made by the Scribe were at my direction and personally dictated by me. I have reviewed the chart and agree that the record accurately reflects my personal performance of the history, physical exam, medical decision making, and the department course for this patient. I have also personally directed, reviewed, and agree with the discharge instructions and disposition. Disposition - Clinical Impression Clinical Impression: Elevated ETOH level, Depression - Patient ED Disposition Is Patient to be Admitted: Yes Discussed With : Cornelio Chamberlain Doctor Will See Patient In The: Hospital Counseled Patient/Family Regarding: Studies Performed, Diagnosis - Disposition Disposition Time: 21:06 Condition: STABLE
[2019-01-02 18:14] LABS: BASO # 0.1 K/uL (0.0-0.2); BASO % 0.8 % (0.0-2.0); EOS # 0.2 K/uL (0.0-0.7); EOS % 3.3 % (0.0-4.0); HEMOGLOBIN 14.8 g/dL (12.0-18.0); LYMPH # 2.8 K/uL (1.0-4.3); LYMPH % 38.1 % (20.0-40.0); MEAN CORPUSCULAR HEMOGLOBIN 34.2 pg (27.0-31.0); MEAN CORPUSCULAR HGB CONC 34.2 g/dL (33.0-37.0); MEAN PLATELET VOLUME 8.1 fl (7.2-11.7); MONO # 0.6 K/uL (0.0-0.8); MONO % 8.4 % (0.0-10.0); NEUT # 3.7 K/uL (1.8-7.0); NEUT % 49.4 % (50.0-75.0); RBC 4.33 Mil/uL (4.40-5.90); RED CELL DISTRIBUTION WIDTH 13.7 % (11.5-14.5); WHITE BLOOD COUNT 7.5 K/uL (4.8-10.8)
[2019-01-02 18:34] LABS: ALB/GLOB RATIO 1.3 (1.0-2.1); ALBUMIN 4.5 g/dL (3.5-5.0); ALT/SGPT 81 U/L (21-72); AST/SGOT 84 U/L (17-59); BLOOD UREA NITROGEN 16 mg/dl (9-20); CALCIUM 9.8 mg/dL (8.4-10.2); GFR NON-AFRICAN AMERICAN > 60
[2019-01-02] MEDS ORDERED: Alum-Mag Hydrox-Simethicone Susp (30 mL) PO PRN (21:16)
[2019-01-02] MEDS ORDERED: DiphenhydrAMINE 50 mg/ml Inj IM PRN (21:16)
[2019-01-02] MEDS ORDERED: Magnesium Hydroxide Susp 30 ml UD PO PRN (21:16)
--- NOTE | 2019-01-02 21:38 | PCM.BM ---
<RubéngailZeina Mary - Last Filed: 01/02/19 21:35> Treatment Plan Problems - Problems identified on initial assessmt Suicidal Ideation Date Initiated: 01/02/19 Time Initiated: 21:36 Assessment reference: NA Status: Active Hopelessness/Helplessness Date Initiated: 01/02/19 Time Initiated: 21:36 Assessment reference: NA Status: Active Altered Sleep Date Initiated: 01/02/19 Time Initiated: 21:36 Assessment reference: NA Status: Active Treatment assets and liabiliti Patient Assests: cooperative, ADL independent, negotiates basic needs (alcohol abuse, homelessness), good past tx response, cognitively intact Patient Liabilities: poor support system, medical problems, other (unemployed,disable) - Milieu Protocol Maintain good personal hygiene: daily Encourage regular showers, other Remind patient to perform daily oral care (prn), other Assist patient to perform ADL's (prn) Conduct patient checks and document Observation sheet: Q15 minutes Maintain personal safety: every shift Educate patient to report safety concerns to staff, every shift Monitor environment for contraband/sharps Medication safety: Monitor for expected outcome, potential side effects: every shift, Assess barriers to learning: every shift, Assess readiness for medication education: every shift <RolandoReshma - Last Filed: 01/04/19 15:10> Treatment assets and liabiliti Patient Assests: adapts well, cooperative, insightful, motivated, resourceful, self-reliant, good support system (Patient reports having a circumstantially support family, explaining that family (primarily mother) does not understand his mental health dx. Pt. reports recent improvement in relationship with ex- . ), negotiates basic needs, good past tx response, financial stabiity (Pt. is currently waiting to be approved for SSI benefits.), good interpersonal skills Patient Liabilities: live alone, physical pain (back pain), relationship conflicts (Patient reports discord and minimal communication with his siblings and adult daughter.), substance abuse (Patient reports significant hx of polysubstance abuse (ETOH, cocaine, marijuana). Pt. reports abstaining from [place] licit substances for several years. Pt. reports significant decrease in intensity/frequency of ETOH intake (from 7 days a week to 2 days a week). Patient denies hx of inpatient substance abuse tx. ), medical problems (Patient reports being dx with diabetes, high blood pressure, cholesterol, rheumatoid arthritis and back injury (several herniated disks). ) Family Contact Family involvement: Famliy/SO not involved Family contact: Family has been contacted by patient, Patient declines to allow family contact at present - Outside Agency Agency 1 Care involvment: Following patient during stay, Information-sharing, Other Agency contact name: [facility] ([facility]) Agency contact number: [phone] - Goals for Treatment Patient goals for treatment: Patient to continue stabilization on 3NP through medication management and group/supportive therapy. Patient to be encouraged to attend groups regularly to promote self-awareness, sobriety, and improve insight, compliance, and coping skills. Patient to be provided with referral for appropriate level of aftercare to reduce risk of future hospitalizations and ensure safety in the community. Pt. identified tx goal as improvement in sleep and decrease in anxiety. Discharge/Continuing Care - Education Needs Education Needs: Patient Medication, Patient Diagnosis/Disease Process, Patient Coping Skills, Patient Community resources, Patient Aftercare Safety Plan - Discharge Discharge Criteria: Tolerates medication w/o severe side effects, Free of Suicidal thoughts, Normal sleep pattern, Reduction of target symptoms (anxiety) Discharge to:: Home - Treatment Team Participation Patient/Family/SO Statement: 01/04/19 15:20 Pt. attended tx team this morning to discuss progress on 3NP and tx goals. Pt. continues to report sxs of anxiety and depression in context of sons incarceration but to a lesser degree than upon admission. Pt. reported sleep disturbances secondary to back pain. Pt. expressed improvement in general mental health for past 18 months, resulting in pt. living independently, decrease intensity/frequency of ETOH intake, and decrease in frequency of rehospitalization. Medication management recommendations discussed at length (increase in Trazadone, Wellbutrin, and Neurontin). Pt. agreeable. Pt. discharge focused, in good behavioral control, and receptive to feedback. Discussed with Family/SO: No Was Patient/Family/SO present at Treatment Team Meeting: Yes <Francesca Leiva - Last Filed: 01/05/19 12:19> - Diagnosis (1) Alcohol abuse Status: Acute Interventions: 01/05/19 12:19 antidepressants, cbt (2) Depression Status: Acute Interventions: 01/05/19 12:19 motivational therapy
--- NOTE | 2019-01-03 09:44 | CARD ---
APPROVED REPORT Date of service: 01/02/2019 EKG Measurement Heart [id number] <Conclusion> Normal sinus rhythm Normal ECG
[2019-01-03] MEDS ORDERED: Pneumococcal 23-Valent Vaccine IM ONE (10:00)
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
[2019-01-04] MEDS: Multi Vitamins 15 mL UD Oral Solution PO SCH (08:34)
[2019-01-04] MEDS ORDERED: buPROPion SR 150 MG TABLET PO SCH (09:00)
--- NOTE | 2019-01-04 13:55 | PCM.PYCHPN ---
Psychiatric Progress Note - Psychiatric Progress Note Patient seen today, length of contact: pt evaluated discussed with team chart reviewed Patient Chief Complaint: I feel down when I think I could not help my son Problems Identified/Issues Discussed: pt evaluated with treatment team , presenting with depressed mood and tearful affect, pt continues to feel down and guilty due to inability to help his son with his legal problems, making him feel helpless and worthless , CBT provided , also discussed with pt increasing dose of wellbutrin, pt continues to report low motivation and energy and poor sleep discussed increasing dose of trazodone , no reported side effects of medications, encouraged to attend groups pt denied active thoughts of self harm , denied perceptual disturbances Medical Problems: hx of multiple hospitalizations with partial compliance Medication Change: Yes (increase trazodone and wellbutrin) Medical Record Reviewed: Yes Mental Status Examination - Cognitive Function Orientation: Person, Place, Situation, Time Attention: WNL Concentration: WNL Association: WN Fund of Knowledge: [facility] Decription of patient's judgement and insights: partial insight fair judgment - Mood Mood: Depressed, Anxious - Affect Affect: Constricted, Depressed - Speech Speech: Soft - Formal Thought Process Formal Thought Process: Circumstantial Psychotic Thoughts and Behaviors: pt denied perceptual disturbances, non elicited - Suicidal Ideation Suicidal Ideation: No - Homicidal Ideation Homicidal Ideation: No Goal/Treatment Plan - Goal/Treatment Plan Need for Continued Stay: Severe depression anxiety, Discharge may exacerbated symptoms Progress Toward Problem(s) and Goals/Treatment Plan: lexapro 10mg daily trileptal 300mg bid increase wellbutrin 200mg daily trazodone 200mg qhs cbt, motivational group and supportive therapy
[2019-01-04] MEDS ORDERED: Albuterol HFA 90 mcg/actuation (8 g) IH PRN (17:36)
[2019-01-05] MEDS: Omega-3-Acid Ethyl Esters 1 GM Cap PO SCH ×2 (08:28→17:15)
[2019-01-05] MEDS: Multi Vitamins 15 mL UD Oral Solution PO SCH (08:30)
[2019-01-05] MEDS ORDERED: Patient's Own Med (Losartan/Hydrochlorothiazide [Losartan-Hctz 100-25 Mg Tab] 1 TAB) PO SCH (09:00)
--- NOTE | 2019-01-05 12:28 | PCM.PYCHPN ---
Psychiatric Progress Note - Psychiatric Progress Note Patient seen today, length of contact: pt evaluated discussed with team chart reviewed Patient Chief Complaint: I have been having headaches Problems Identified/Issues Discussed: pt evaluated , presenting with anxious mood and irritable affect, reported experiencing frontal headaches pt noted to have mild elevation in blood pressure, discussed decreasing wellbutrin and increasing dose of lexapro, pt continues to report feeling depressed because of his son situation, CBT provided , pt denied active thoughts of self harm , denied perceptual disturbances Medical Problems: hx of multiple hospitalizations with partial compliance DSM 5 Symptoms Update: bipolar disorder MRE depressed severe alcohol abuse Medication Change: Yes (decrease wellbutrin, increase lexapro) Medical Record Reviewed: Yes Mental Status Examination - Cognitive Function Orientation: Person, Place, Situation, Time Attention: WNL Concentration: WNL Association: WNL Fund of Knowledge: [facility] Decription of patient's judgement and insights: partial insight fair judgment - Mood Mood: Depressed, Anxious - Affect Affect: Constricted, Depressed - Speech Speech: Soft - Formal Thought Process Formal Thought Process: Circumstantial Psychotic Thoughts and Behaviors: pt denied perceptual disturbances, non elicited - Suicidal Ideation Suicidal Ideation: No - Homicidal Ideation Homicidal Ideation: No Goal/Treatment Plan - Goal/Treatment Plan Need for Continued Stay: Severe depression anxiety, Discharge may exacerbated symptoms Progress Toward Problem(s) and Goals/Treatment Plan: increase lexapro 15mg daily trileptal 300mg bid wellbutrin 150 mg daily trazodone 200mg qhs cbt, motivational group and supportive therapy
[2019-01-06] MEDS: Omega-3-Acid Ethyl Esters 1 GM Cap PO SCH ×2 (08:42→17:25)
[2019-01-06] MEDS: buPROPion SR 150 MG TABLET PO SCH (08:42)
[2019-01-06] MEDS: Multi Vitamins 15 mL UD Oral Solution PO SCH (08:42)
--- NOTE | 2019-01-06 14:12 | PCM.PYCHPN ---
Psychiatric Progress Note - Psychiatric Progress Note Patient seen today, length of contact: pt evaluated discussed with team chart reviewed Patient Chief Complaint: I slept better last night Problems Identified/Issues Discussed: pt evaluated , continues to present with depressed mood and anxious affect, discussed increasing dose of lexapro, no side effects reported, discussed with malaika coping skills with stress and , pt reported improved sleep, no current changes in appetite pt denied active thoughts of self harm , denied perceptual disturbances Medical Problems: hx of multiple hospitalizations with partial compliance DSM 5 Symptoms Update: bipolar disorder depressed alcohol abuse Medication Change: No Medical Record Reviewed: Yes Mental Status Examination - Cognitive Function Orientation: Person, Place, Situation, Time Attention: WNL Concentration: WNL Association: WNL Fund of Knowledge: [facility] Decription of patient's judgement and insights: partial insight fair judgment - Mood Mood: Depressed, Anxious - Affect Affect: Constricted, Depressed - Speech Speech: Appropriate - Formal Thought Process Formal Thought Process: Circumstantial Psychotic Thoughts and Behaviors: pt denied perceptual disturbances, non elicited - Suicidal Ideation Suicidal Ideation: No - Homicidal Ideation Homicidal Ideation: No Goal/Treatment Plan - Goal/Treatment Plan Need for Continued Stay: Severe depression anxiety, Discharge may exacerbated symptoms Progress Toward Problem(s) and Goals/Treatment Plan: increase lexapro 20mg daily trileptal 300mg bid wellbutrin 150 mg daily trazodone 200mg qhs cbt, motivational group and supportive therapy
[2019-01-06] MEDS: Naproxen 500 MG TAB PO SCH (17:25)
--- NOTE | 2019-01-07 08:50 | PCM.PYCHPN ---
Psychiatric Progress Note - Psychiatric Progress Note Patient seen today, length of contact: pt evaluated discussed with team chart reviewed Patient Chief Complaint: pt reports feeling less depressed and less anxious and increase in lexapro is helping the pt better.pt was admitted because of severe depression because he was worried about his son who is very sick mentally.pt remains with poor insight and need further stabilization. Medication Change: No Medical Record Reviewed: Yes Mental Status Examination - Cognitive Function Orientation: Person, Place, Situation, Time Attention: Poor Concentration: Poor Association: WNL Fund of Knowledge: WNL - Mood Mood: Depressed, Anxious - Affect Affect: Constricted, Depressed - Speech Speech: Appropriate - Formal Thought Process Formal Thought Process: Circumstantial - Suicidal Ideation Suicidal Ideation: No - Homicidal Ideation Homicidal Ideation: No Goal/Treatment Plan - Goal/Treatment Plan Need for Continued Stay: Severe depression anxiety, Discharge may exacerbated symptoms Progress Toward Problem(s) and Goals/Treatment Plan: will continue to stabilize pt with meds and therapy. Disposition as per dr anderson.
[2019-01-07] MEDS: Naproxen 500 MG TAB PO SCH ×2 (09:06→19:07)
[2019-01-07] MEDS: Multi Vitamins 15 mL UD Oral Solution PO SCH (09:07)
[2019-01-07] MEDS: Omega-3-Acid Ethyl Esters 1 GM Cap PO SCH ×2 (09:09→16:49)
[2019-01-07] MEDS: buPROPion SR 150 MG TABLET PO SCH (09:12)
[2019-01-08] MEDS: Multi Vitamins 15 mL UD Oral Solution PO SCH (09:13)
[2019-01-08] MEDS: Omega-3-Acid Ethyl Esters 1 GM Cap PO SCH ×2 (09:13→17:40)
[2019-01-08] MEDS: buPROPion SR 150 MG TABLET PO SCH (09:14)
[2019-01-08] MEDS: Naproxen 500 MG TAB PO SCH ×2 (09:15→17:41)
--- NOTE | 2019-01-08 14:17 | PCM.PYCHPN ---
Psychiatric Progress Note - Psychiatric Progress Note Patient seen today, length of contact: pt evaluated discussed with team chart reviewed Patient Chief Complaint: pt reports feeling better on meds and has been less depressed and less anxious and increase in lexapro is helping the pt better.pt was admitted because of severe depression because he was worried about his son who is very sick mentally.pt remains with poor insight and need further stabilization. Medication Change: No Medical Record Reviewed: Yes Mental Status Examination - Cognitive Function Orientation: Person, Place, Situation, Time Attention: Poor Concentration: Poor Association: WNL Fund of Knowledge: WNL - Mood Mood: Depressed, Anxious - Affect Affect: Constricted, Depressed - Speech Speech: Appropriate - Formal Thought Process Formal Thought Process: Circumstantial - Suicidal Ideation Suicidal Ideation: No - Homicidal Ideation Homicidal Ideation: No Goal/Treatment Plan - Goal/Treatment Plan Need for Continued Stay: Severe depression anxiety, Discharge may exacerbated symptoms Progress Toward Problem(s) and Goals/Treatment Plan: will continue to stabilize pt with meds and therapy. Disposition as per dr anderson.
[2019-01-09] MEDS: Naproxen 500 MG TAB PO SCH (08:56)
[2019-01-09] MEDS: buPROPion SR 150 MG TABLET PO SCH (08:56)
[2019-01-09 08:58] VITALS: BP 114/83
[2019-01-09] MEDS: Multi Vitamins 15 mL UD Oral Solution PO SCH (08:58)
[2019-01-09] MEDS: Omega-3-Acid Ethyl Esters 1 GM Cap PO SCH (09:00)
[2019-01-09 09:10] VITALS: PULSE 83; RESP 19; TEMP 98.2
--- NOTE | 2019-01-09 09:50 | PCM.PYCHDC ---
Mental Status Examination - Mental Status Examination Orientation: Person, Place, Situation Memory: Intact Mood: Neutral Affect: Broad Speech: Appropriate Attention: WNL Concentration: WNL Association: WNL Fund of Knowledge: WNL Formal Thought Process: No Impairment Description of patient's judgement and insight: partial insight fair judgment Psychotic Thoughts and Behaviors: pt denied perceptual disturbances, non elicited Suicidal Ideation: No Current Homicidal Ideation?: No Discharge Summary - Discharge Note Reason for Hospitalization: pt is 48 ys old male with previous diagnosis of bipolar disorder and alcohol use disorder presented to ER with paln to cut his wrist pt reported visiting his son who is in intermediate feeling increasingly depressed about his son situation and remembering the loss of his grand son in the fire , pt has been for past few weeks as it is the anniversary of the loss of his grand son, feeling depressed with poor sleep poor appetite, feeling hopeless and helpless , low energy and poor motivation , on the unit continues to report passive suicidal ideation without active plan, denied command hallucinations, reported occasional use of alcohol Laboratory Data: Abnormal Lab Results 01/08/19 20:07 POC Glucose (mg/dL) 117 H Consultations:: List each consultation separately and include: 1. Reason for request. 2. Findings. 3. Follow-up Summary of Hospital Course include:: 1. Description of specific treatment plan utilized for patients during their course of treatmen. 2. Summarize the time- course for resolution of acute symptoms and/or regressed behaviors. 3. Describe issues identified and worked on during hospitalization. 4. Describe medication utilized. 5. Describe medical problems identified and treated. 6. Reassessment of suicide risk Summary of Hospital Course: pton admission presented with depressed mood and affect pt was placed on wellbutrin lexapro and trileptal cbt motivational and group therapy provided pt was compliant wit treatment , no reported side effects of medications, on discharge mental status was stable pt denied any current suicidal or homicidal ideation denied perceptual disturbances - Diagnosis (1) Alcohol abuse Current Visit: Yes Status: Acute (2) Depression Current Visit: Yes Status: Acute Priority: High Comment: Mangement as per psych - Final Diagnosis (DSM 5) Condition upon Discharge: STABLE DSM 5: bipolar I disorder MRE depressed severe without psychotic features alcohol abuse Disposition: HOME/ ROUTINE Follow-up Treatment Plan: increase lexapro 20mg daily trileptal 300mg bid wellbutrin 150 mg daily trazodone 200mg qhs cbt, motivational group and supportive therapy Prescriptions/Medication Reconciliation: buPROPion SR [Wellbutrin SR 150 MG] 150 mg PO DAILY 30 Days #30 tab Escitalopram [Lexapro] 20 mg PO DAILY 30 Days #30 tab OXcarbazepine [Trileptal] 300 mg PO BID 30 Days #60 tab traZODone [Desyrel] 200 mg PO HS 30 Days #60 tab - Antipsychotic Medications Pt discharged on 2 or more routine antipsychotic medications: No
== END 2019-01-09 12:32 | disposition home or self-care (01) | DRG 430 ==
LOC: H.ER 15:34 → H.ERHOLD 19:42 → H.PSYCH 21:12
PROVIDERS: ADMIT Psychiatry & Neurology Psychiatry; ATTEND Psychiatry & Neurology Psychiatry
PROC: GZHZZZZ Group Psychotherapy (ICD-10-PCS; principal; 2019-01-02)
PROC: HZ57ZZZ Individual Psychotherapy for Substance Abuse Treatment, Motivational Enhancement (ICD-10-PCS; 2019-01-02)
PROC: HZ52ZZZ Individual Psychotherapy for Substance Abuse Treatment, Cognitive-Behavioral (ICD-10-PCS; 2019-01-02)
PROC: GZ56ZZZ Individual Psychotherapy, Supportive (ICD-10-PCS; 2019-01-02)
PROC: 3E0234Z Introduction of Serum, Toxoid and Vaccine into Muscle, Percutaneous Approach (ICD-10-PCS; 2019-01-03)
DX: F31.4 Bipolar disorder, current episode depressed, severe, without psychotic features (principal); F10.10 Alcohol abuse, uncomplicated; Z23 Encounter for immunization; J45.909 Unspecified asthma, uncomplicated; K21.9 Gastro-esophageal reflux disease without esophagitis; I10 Essential (primary) hypertension; E78.00 Pure hypercholesterolemia, unspecified; M06.9 Rheumatoid arthritis, unspecified; G47.30 Sleep apnea, unspecified; Z79.84 Long term (current) use of oral hypoglycemic drugs; E66.01 Morbid (severe) obesity due to excess calories; Z68.42 Body mass index [BMI] 45.0-49.9, adult; E78.5 Hyperlipidemia, unspecified; Z87.891 Personal history of nicotine dependence; R73.03 Prediabetes; Y90.6 Blood alcohol level of 120-199 mg/100 ml

== ENCOUNTER 2019-01-12 07:35 | Emergency (ER) | payer MEDICAID ==
[2019-01-12 07:57] VITALS: BMI 49.8
[2019-01-12 07:58] VITALS: RESP 20
[2019-01-12] MEDS ORDERED: Albuterol-Ipratrop 3 mg / 0.5 (3 ml) UD IH STA (08:05)
[2019-01-12 08:06] VITALS: O2SAT 98
--- NOTE | 2019-01-12 08:12 | ED PDOC ---
HPI: CCC, URI, Sore Throat Time Seen by Provider: 01/12/19 08:01 Chief Complaint (Nursing): Cough, Cold, Congestion Chief Complaint (Provider): Cough and congestion History Per: Patient History/Exam Limitations: no limitations Onset/Duration Of Symptoms: Days (x2) Current Symptoms Are (Timing): Still Present Associated Symptoms: Cough, Nasal Congestion. denies: Fever Additional Complaint(s): 48 y/o male presents to the ER with cough and congestion productive of yellowish sputum for 2 days. Denies fever. Patient reports he has been using inhalers with no improvement. He was recently hospitalized for depression. PMD: none Past Medical History Reviewed: Historical Data, Nursing Documentation, Vital Signs Vital Signs: Last Vital Signs Temp 98.9 F 01/12/19 07:58 Pulse 97 H 01/12/19 07:58 Resp 20 01/12/19 07:58 BP 123/80 01/12/19 07:58 Pulse Ox 98 01/12/19 08:04 Primary Care Provider: FAMILY PROVIDER,NO - Medical History PMH: Anxiety, Arthritis, Asthma, Back Problems (herniated disc), Bipolar Disorder, Depression, Diabetes (borderline type II), GERD, HTN, Hypercholesterolemia, Rheumatoid Arthritis, Schizophrenia, Sleep Apnea Denies: Hepatitis, HIV, Chronic Kidney Disease, Seizures, Sexually Transmitted Disease - Surgical History Surgical History: No Surg Hx - Family History Family History: States: Unknown Family Hx - Immunization History Hx Tetanus Toxoid Vaccination: No Hx Influenza Vaccination: No Hx Pneumococcal Vaccination: No - Home Medications Home Medications: Ambulatory Orders Medication Instructions Recorded Losartan/Hydrochlorothiazide 1 tab PO DAILY 03/27/17 [Losartan-Hctz 100-25 mg Tab] Atorvastatin [Lipitor] 40 mg PO HS tab 04/05/17 Folic Acid 1 mg PO DAILY tab 04/05/17 MetFORMIN [glucoPHAGE] 1,000 mg PO BIDWM tab 04/05/17 amLODIPine [Norvasc] 10 mg PO DAILY tab 04/05/17 Albuterol HFA [Ventolin HFA 90 2 puff IH Q6H PRN 10/19/17 mcg/actuation (8 g)] Omeprazole 40 mg PO DAILY 10/19/17 Topiramate [Topamax] 50 mg PO DAILY #14 tab 10/27/17 Dicyclomine [Bentyl] 10 mg PO TID #12 cap 07/01/18 Hydrocortisone 2.5% 1 apful TP BID #60 gm 09/15/18 Escitalopram [Lexapro] 20 mg PO DAILY 30 Days #30 tab 01/09/19 Folic Acid 1 mg PO DAILY #0 tab 01/09/19 Losartan [Cozaar] 100 mg PO DAILY tab 01/09/19 Multivitamin UD 15 mL Oral 15 ml PO DAILY liq 01/09/19 [Multi-Delyn Liquid] Naproxen 500 mg PO BID tab 01/09/19 OXcarbazepine [Trileptal] 300 mg PO BID 30 Days #60 tab 01/09/19 [id number] Ethyl Esters 1 GM 2 gm PO BID sgl 01/09/19 [Lovaza] Thiamine [Vitamin B1 Tab] 100 mg PO DAILY tab 01/09/19 buPROPion SR [Wellbutrin SR 150 MG] 150 mg PO DAILY 30 Days #30 tab 01/09/19 hydroCHLOROthiazide [Hydrodiuril] 25 mg PO DAILY tab 01/09/19 traZODone [Desyrel] 200 mg PO HS 30 Days #60 tab 01/09/19 Albuterol HFA [Ventolin HFA 90 2 puff IH Q4H #1 puff 01/12/19 mcg/actuation (8 g)] Amoxicillin [Amoxil 500 mg Cap] 500 mg PO TID #30 cap 01/12/19 Benzonatate [Tessalon Perles] 100 mg PO TID #15 sgl 01/12/19 - Allergies Allergies/Adverse Reactions: Allergies Allergy/AdvReac Type Severity Reaction Status Date / Time No Known Allergies Allergy Verified 01/02/19 16:09 Review of Systems ROS Statement: Except As Marked, All Systems Reviewed And Found Negative Constitutional: Negative for: Fever ENT: Positive for: Nose Congestion Respiratory: Positive for: Cough Physical Exam - Reviewed Nursing Documentation Reviewed: Yes Vital Signs Reviewed: Yes - Physical Exam Appears: Positive for: No Acute Distress Head Exam: Positive for: ATRAUMATIC, NORMOCEPHALIC Skin: Positive for: Normal Color, Warm, Dry Eye Exam: Positive for: Normal appearance Neck: Positive for: Normal, Painless ROM Cardiovascular/Chest: Positive for: Regular Rate, Rhythm Respiratory: Positive for: Wheezing (Mild expiratory wheezing anteriorly). Negative for: Respiratory Distress Extremity: Positive for: Normal ROM Neurological/Psych: Positive for: Awake, Alert, Normal Tone - ECG O2 Sat by Pulse Oximetry: 98 (RA) Pulse Ox Interpretation: Normal Medical Decision Making Medical Decision Making: Initial Impression: Cough and congestion Initial Plan: --Chest X-ray --Albuterol 3mL INH --Peak flow Will obtain chest X-ray to determine if patient has pneumonia as treatment would be different for hospitalized acquired pneumonia if positive. Will also give nebulizer treatments now. Scribe Attestation: Documented by Héctor Johnson acting as a scribe for Derrick Horton MD. Provider Scribe Attestation: All medical record entries made by the Scribe were at my direction and personally dictated by me. I have reviewed the chart and agree that the record accurately reflects my personal performance of the history, physical exam, medical decision making, and the department course for this patient. I have also personally directed, reviewed, and agree with the discharge instructions and disposition. Disposition - Clinical Impression Clinical Impression: Bronchitis - Patient ED Disposition Is Patient to be Admitted: No Counseled Patient/Family Regarding: Studies Performed, Diagnosis, Need For Followup, Rx Given - Disposition Referrals: [facility] [Outside] Disposition: Routine/Home Disposition Time: 08:46 Condition: FAIR Prescriptions: Albuterol HFA [Ventolin HFA 90 mcg/actuation (8 g)] 2 puff IH Q4H #1 puff Amoxicillin [Amoxil 500 mg Cap] 500 mg PO TID #30 cap Benzonatate [Tessalon Perles] 100 mg PO TID #15 sgl Instructions: Acute Bronchitis Forms: [employer] [facility] (Albanian)
--- NOTE | 2019-01-12 08:49 | RAD ---
Date of service: 01/12/2019 HISTORY: cough COMPARISON: Chest radiographs 01/02/2019. TECHNIQUE: Chest PA and lateral views FINDINGS: LUNGS: No active pulmonary disease. PLEURA: No significant pleural effusion identified. No pneumothorax apparent. CARDIOVASCULAR: No aortic atherosclerotic calcification present. Normal cardiac size. No pulmonary vascular congestion. OSSEOUS STRUCTURES: No significant abnormalities. VISUALIZED UPPER ABDOMEN: Normal. OTHER FINDINGS: None. IMPRESSION: No interval acute cardiopulmonary disease appreciated.
[2019-01-12 09:13] VITALS: BP 117/89; PULSE 78; TEMP 98.8
== END 2019-01-12 09:13 | disposition home or self-care (01) ==
LOC: H.ER 07:35
DX: J40 Bronchitis, not specified as acute or chronic (principal); E78.00 Pure hypercholesterolemia, unspecified; I10 Essential (primary) hypertension

== ENCOUNTER 2019-01-17 04:26 | Emergency (ER) | payer MEDICAID ==
[2019-01-17 04:53] VITALS: BMI 48.4
--- NOTE | 2019-01-17 05:22 | ED PDOC ---
HPI: CCC, URI, Sore Throat Time Seen by Provider: 01/17/19 04:30 Chief Complaint (Nursing): Cough, Cold, Congestion Chief Complaint (Provider): Cough History Per: Patient History/Exam Limitations: no limitations Have you had recent travel within the past 21 days to any of the following countries: [place], [place], [place] or [place]?: No Onset/Duration Of Symptoms: Days Current Symptoms Are (Timing): Still Present Associated Symptoms: Chills, Cough, Sputum (yellow) Additional History Per: Patient Additional Complaint(s): 48yo male with history of hypertension, high cholesterol, diabetes, comes to ER for evaluation of persistent productive cough. Patient was evaluated in this ER on 01/12 for similar complaints, was diagnosed with bronchitis, and discharged home with prescription for Ventolin pump, amoxicillin and tessalon perles. Patient states he has been taking the medications as prescribed but has no relief of symptoms. He currently reports associated chills, and states the spu rodney is yellow/earl in color. Patient reports chest pain and abdominal pain as well but attributes this to coughing. No additional complaints. Past Medical History Reviewed: Historical Data, Nursing Documentation, Vital Signs Vital Signs: Last Vital Signs Temp 98.3 F 01/17/19 04:53 Pulse 95 H 01/17/19 04:53 Resp 20 01/17/19 04:53 BP 140/85 01/17/19 04:53 Pulse Ox 96 01/17/19 04:53 Primary Care Provider: Flavio Dickson - Medical History PMH: Anxiety, Arthritis, Asthma, Back Problems (herniated disc), Bipolar Diso rder, Depression, Diabetes (borderline type II), GERD, HTN, Hypercholesterolemia, Rheumatoid Arthritis, Schizophrenia, Sleep Apnea Denies: Hepatitis, HIV, Chronic Kidney Disease, Seizures, Sexually T ransmitted Disease - Surgical History Other surgeries: polyps removal - Family History Family History: States: Unknown Family Hx - Immunization History Hx Tetanus Toxoid Vaccination: No Hx Influenza Vaccination: No Hx Pneumococcal Vaccination: No - Home Medications Home Medications: Ambulatory Orders Medication Instructions Recorded Losartan/Hydrochlorothiazide 1 tab PO DAILY 03/27/17 [Losartan-Hctz 100-25 mg Tab] Atorvastatin [Lipitor] 40 mg PO HS tab 04/05/17 Folic Acid 1 mg PO DAILY tab 04/05/17 MetFORMIN [glucoPHAGE] 1,000 mg PO BIDWM tab 04/05/17 amLODIPine [Norvasc] 10 mg PO DAILY tab 04/05/17 Albuterol HFA [Ventolin HFA 90 2 puff IH Q6H PRN 10/19/17 mcg/actuation (8 g)] Omeprazole 40 mg PO DAILY 10/19/17 Topiramate [Topamax] 50 mg PO DAILY #14 tab 10/27/17 Dicyclomine [Bentyl] 10 mg PO TID #12 cap 07/01/18 Hydrocortisone 2.5% 1 apful TP BID #60 gm 09/15/18 Escitalopram [Lexapro] 20 mg PO DAILY 30 Days #30 tab 01/09/19 Folic Acid 1 mg PO DAILY #0 tab 01/09/19 Losartan [Cozaar] 100 mg PO DAILY tab 01/09/19 Multivitamin UD 15 mL Oral 15 ml PO DAILY liq 01/09/19 [Multi-Delyn Liquid] Naproxen 500 mg PO BID tab 01/09/19 OXcarbazepine [Trileptal] 300 mg PO BID 30 Days #60 tab 01/09/19 [id number] Ethyl Esters 1 GM 2 gm PO BID sgl 01/09/19 [Lovaza] Thiamine [Vitamin B1 Tab] 100 mg PO DAILY tab 01/09/19 buPROPion SR [Wellbutrin SR 150 MG] 150 mg PO DAILY 30 Days #30 tab 01/09/19 hydroCHLOROthiazide [Hydrodiuril] 25 mg PO DAILY tab 01/09/19 traZODone [Desyrel] 200 mg PO HS 30 Days #60 tab 01/09/19 Albuterol HFA [Ventolin HFA 90 2 puff IH Q4H #1 puff 01/12/19 mcg/actuation (8 g)] Amoxicillin [Amoxil 500 mg Cap] 500 mg PO TID #30 cap 01/12/19 Benzonatate [Tessalon Perles] 100 mg PO TID #15 sgl 01/12/19 Albuterol HFA [Ventolin HFA 90 1 - 2 puff IH Q4H PRN #1 bottle 01/17/19 mcg/actuation (8 g)] Azithromycin [Zithromax] 250 mg PO DAILY #6 tab 01/17/19 - Allergies Allergies/Adverse Reactions: Allergies Allergy/AdvReac Type Severity Reaction Status Date / Time No Known Allergies Allergy Verified 01/17/19 04:52 Review of Systems ROS Statement: Except As Marked, All Systems Reviewed And Found Negative Constitutional: Positive for: Fever, Chills Cardiovascular: Positive for: Chest Pain (due to cough) Respiratory: Positive for: Cough, Sputum. Negative for: Shortness of Breath, Hemoptysis Gastrointestinal: Positive for: Abdominal Pain (due to cough) Physical Exam - Reviewed Nursing Documentation Reviewed: Yes Vital Signs Reviewed: Yes - Physical Exam Appears: Positive for: Non-toxic, No Acute Distress Head Exam: Positive for: ATRAUMATIC, NORMAL INSPECTION, NORMOCEPHALIC Skin: Positive for: Normal Color Eye Exam: Positive for: Normal appearance, EOMI, PERRL ENT: Positive for: Normal ENT Inspection Neck: Positive for: Normal, Supple Cardiovascular/Chest: Positive for: Regular Rate, Rhythm. Negative for: Murmur Respiratory: Positive for: Normal Breath Sounds. Negative for: Rales, Rhonchi, Wheezing, Respiratory Distress Gastrointestinal/Abdominal: Positive for: Normal Exam, Soft Back: Positive for: Normal Inspection Extremity: Positive for: Normal ROM Neurological/Psych: Positive for: Awake, Alert, Normal Tone - Laboratory Results Result Diagrams: 01/17/19 05:03 01/17/19 05:03 - ECG ECG: Positive for: Interpreted By Me, Viewed By Me ECG Rhythm: Positive for: Sinus Rhythm Rate: 85 O2 Sat by Pulse Oximetry: 96 (RA) Pulse Ox Interpretation: Normal Medical Decision Making Medical Decision Making: Impression: Productive cough, general malaise r/o influenza, pneumonia Plan: -- Labs -- EKG -- CXR -- Albuterol 2.5mg INH -- Rapid flu 0619 Rapid flu negative 0631 Labs reviewed, patient with hypokalemia and elevated blood sugar CXR reviewed by provider shows no active disease. No pneumonia. On reassessment, patient reports improvement. Patient encouraged on high potassium diet. Patient states in the past, he was given Z-pack which resolved his symptoms and he would prefer that over the amoxicillin as he feels that the amox is not helping him. Patient to be discharged home with prescription for Ventolin Puffer as well as Z-Pack. Informed to take medications as prescribed. Patient informed to follow up with PMD in 1-2 days. Return precautions given. --- Scribe Attestation: Documented by Terra Olmos acting as a scribe for Shelby Pinto MD. Provider Scribe Attestation: All medical record entries made by the Scribe were at my direction and personally dictated by me. I have reviewed the chart and agree that the record accurately reflects my personal performance of the history, physical exam, medical decision making, and the department course for this patient. I have also personally directed, reviewed, and agree with the discharge instructions and disposition. Disposition - Clinical Impression Clinical Impression: Cough - Patient ED Disposition Is Patient to be Admitted: No Counseled Patient/Family Regarding: Studies Performed, Diagnosis, Need For Followup - Disposition Referrals: Flavio Dickson MD [Primary Care Provider] - Disposition: Routine/Home Disposition Time: 06:00 Condition: STABLE Additional Instructions: follow up with your primary doctor in 1-2 days return to the ED with any worsening or concerning symptoms Prescriptions: Albuterol HFA [Ventolin HFA 90 mcg/actuation (8 g)] 1 - 2 puff IH Q4H PRN #1 bottle PRN Reason: Wheezing Azithromycin [Zithromax] 250 mg PO DAILY #6 tab Instructions: Cough in Adults Forms: [employer] ([employer])
[2019-01-17] MEDS ORDERED: Albuterol 0.083% Inhal Sol (2.5 mg/3 mL) UD INH ONE (05:23)
[2019-01-17] MEDS ORDERED: Albuterol 0.083% Inhal Sol (2.5 mg/3 mL) UD ONE (05:26)
[2019-01-17 05:46] LABS: BASO # 0.1 K/uL (0.0-0.2); BASO % 0.7 % (0.0-2.0); EOS # 0.2 K/uL (0.0-0.7); EOS % 3.3 % (0.0-4.0); HEMOGLOBIN 14.2 g/dL (12.0-18.0); LYMPH # 1.7 K/uL (1.0-4.3); LYMPH % 23.9 % (20.0-40.0); MEAN CELL VOLUME 100.3 fl (80.0-94.0); MEAN CORPUSCULAR HEMOGLOBIN 34.2 pg (27.0-31.0); MEAN CORPUSCULAR HGB CONC 34.1 g/dL (33.0-37.0); MEAN PLATELET VOLUME 8.5 fl (7.2-11.7); MONO # 0.6 K/uL (0.0-0.8); MONO % 8.5 % (0.0-10.0); NEUT # 4.4 K/uL (1.8-7.0); NEUT % 63.6 % (50.0-75.0); RBC 4.14 Mil/uL (4.40-5.90); RED CELL DISTRIBUTION WIDTH 13.6 % (11.5-14.5)
[2019-01-17 06:28] LABS: ALB/GLOB RATIO 1.2 (1.0-2.1); ALBUMIN 4.1 g/dL (3.5-5.0); ALT/SGPT 69 U/L (21-72); AST/SGOT 51 U/L (17-59); BLOOD UREA NITROGEN 19 mg/dl (9-20); CALCIUM 9.4 mg/dL (8.4-10.2); GFR NON-AFRICAN AMERICAN > 60
[2019-01-17 07:08] VITALS: BP 125/75; RESP 18; TEMP 98.4
--- NOTE | 2019-01-17 08:11 | RAD ---
Date of service: 01/17/2019 HISTORY: cough COMPARISON: Chest radiographs 01/12/2019. TECHNIQUE: Chest PA and lateral views FINDINGS: LUNGS: No acute pulmonary disease. PLEURA: No significant pleural effusion identified. No pneumothorax apparent. CARDIOVASCULAR: No aortic atherosclerotic calcification present. Normal cardiac size. No pulmonary vascular congestion. OSSEOUS STRUCTURES: No significant abnormalities. VISUALIZED UPPER ABDOMEN: Mildly elevated right hemidiaphragm again evident of uncertain origin. OTHER FINDINGS: None. IMPRESSION: No interval acute cardiopulmonary disease appreciated. Mildly elevated right hemidiaphragm reiterated.
--- NOTE | 2019-01-17 10:08 | CARD ---
APPROVED REPORT Date of service: 01/17/2019 EKG Measurement Heart [id number] <Conclusion> Normal sinus rhythm Normal ECG
[2019-01-18 09:51] VITALS: PULSE 85; O2SAT 96
== END 2019-01-17 07:06 | disposition home or self-care (01) ==
LOC: H.ER 04:26
DX: R05 Cough (principal); E11.65 Type 2 diabetes mellitus with hyperglycemia; Z86.59 Personal history of other mental and behavioral disorders; I10 Essential (primary) hypertension; J45.909 Unspecified asthma, uncomplicated; M06.9 Rheumatoid arthritis, unspecified; Z79.84 Long term (current) use of oral hypoglycemic drugs; Z79.899 Other long term (current) drug therapy; K21.9 Gastro-esophageal reflux disease without esophagitis